=== PATIENT | male | born 1935 | race Caucasian/White ===

== ENCOUNTER → 2021-01-19 10:45 | Outpatient (BNVA) | payer MEDICARE, OTHER, SELFPAY | PROVIDERS: PCP Internal Medicine; Visit Provider Urology | DX: C61 Malignant neoplasm of prostate (principal) | CPT/HCPCS: 99212 ==

== ENCOUNTER → 2022-01-19 09:42 | Outpatient (BNVA) | payer MEDICARE, OTHER, SELFPAY | PROVIDERS: PCP Internal Medicine; Visit Provider Urology | DX: N20.0 Calculus of kidney (principal); C61 Malignant neoplasm of prostate; N40.1 Benign prostatic hyperplasia with lower urinary tract symptoms; N13.8 Other obstructive and reflux uropathy | CPT/HCPCS: 99212 ==

== ENCOUNTER 2023-01-08 10:06 | Outpatient (REF) | payer MEDICARE, OTHER, SELFPAY ==
--- NOTE | ~2023-01-08 | US_ITS ---
EXAMINATION: US RETROPERITONEAL LIMITED (RENAL ONLY) CLINICAL INFORMATION: Calculus of kidney. COMPARISON: None available. TECHNIQUE: Real-time imaging of the kidneys. FINDINGS: RIGHT KIDNEY: 12.8 x 6.5 x 4.6 cm (SAG x AP x TRV). The kidney is normal in size, contour, and echogenicity. Renal cortical thickness is normal. No calculi or focal parenchymal lesions. No hydronephrosis. LEFT KIDNEY: 12.0 x 5.0 x 4.7 cm (SAG x AP x TRV). The kidney is normal in size, contour, and echogenicity. Renal cortical thickness is normal. No renal calculi or hydronephrosis. 0.6 cm simple cyst in the mid kidney. 2.1 cm simple cyst in the upper pole. No follow-up imaging is recommended. US/US renal BI IMPRESSION: No visible nephrolithiasis. No hydronephrosis.
== END 2023-01-08 10:07 | disposition home or self-care (01) ==
LOC: HO.US 10:06
PROVIDERS: PCP Internal Medicine; Visit Provider Urology
DX: N20.0 Calculus of kidney (principal)
CPT/HCPCS: 76775

== ENCOUNTER 2023-01-24 11:24 | Outpatient (AMB) | payer MEDICARE, OTHER, SELFPAY ==
--- NOTE | 2023-01-24 11:34 | A.OFFVIS_ITS ---
Intake Intake Visit Reasons: 1Y PSA/US(set) Intake Note: Patient is present for Follow Up us/psa Urology Med: None Antibiotic Allergy: Penicillin Blood Thinner: None Pharmacy: [facility] Allergies penicillin Allergy (Unknown, Uncoded 01/24/23 11:35) Unknown HPI HPI Comments History of Present Illness Details Niels BEY is a very pleasant male. He is a patient of Dr. Barnhart. He is seen for the following urologic conditions. - prostate cancer Doing well PSA low Plan for ultrasound kidney stone in 12 months His older brother age 97 whose name was Murali Bey recently Prostate cancer:? Low-grade radical prostatectomy 1997 PSA remains low ? Prostate cancer was diagnosed?[address].? Diagnosis was reached by?needle biopsy, for elevated PSA.? The Rigo grade is?3+3 = 6, At biopsy.? TNM Classification of Malignant Tumours (TNM)?T1c.? The D'Tirso (NCCN) risk category is?Low Risk (PSA< 10, Gl < 7, T1c).? Initial therapy included?Primary treatment, Prostatectomy (RRP/Robotic) ?, Additional treatment, Observation.? Recent labs included?a PSA (prostate-specific antigen) ?01/22 0.27 ?01/25 0.2, 02/26 0.2, 02/27 0.2, 01/28 0.2, 01/29 0.2, 01/30 0.2 Nephrolithiasis Ureteroscopy right side 2014 2020 presentation to [facility] with distal right-sided stone Imaging - 01/30 renal ultrasound, bilateral simple cyst, no stones PFSH Medical History Eczema Glaucoma History of kidney stones HTN (hypertension) Hypothyroidism OA (osteoarthritis) Prostate cancer Surgical History History of surgery Review of Systems Const Denies chills and Denies fever(s) Card Reports no additional complaints and Denies syncope Resp Denies cough GI Denies abdominal pain and Denies heartburn Reports as per HPI and Denies change in libido Neuro Denies syncope Psych Denies change in libido Endo Denies change in libido Physical Exam Const General: cooperative, healthy appearing, comfortable and no acute distress Orientation/consciousness: patient oriented x3 HEENT Face and sinus: Yes normal facial exam Mouth: moist mucous membranes Neck Neck: Yes normal visual inspection, Yes full ROM and Yes trachea midline Chest Chest palpation & inspection: normal inspection of the chest Resp Effort & Inspection: normal respiratory effort, able to speak in complete sentences and no respiratory distress GI Inspection: Yes normal to inspection Back/Spine/Pelvis Cervical Spine: normal cervical lordosis Thoracic/Lumbar Spine: thoracic and lumbar spine normal to inspection Skin General skin exam: no rashes or lesions noted Neuro General: patient oriented x3, gait normal, tone normal and moves all extremities Extrem General: Yes normal to inspection and Yes capillary refill normal Assessment & Plan Assessment & Plan (1) Prostate cancer: Code(s): C61 - Malignant neoplasm of prostate (2) Recurrent kidney stones: Code(s): N20.0 - Calculus of kidney Plan Twelve month follow-up Orders: Orders Prostate Specific Antigen 364 Days C61 - Malignant neoplasm of prostate US renal BI 364 Days N20.0 - Calculus of kidney Patient Instructions: Imaging studies, laboratory and physical exam results were discussed and rev iewed in detail. No major barriers to patient understanding were identified. An opportunity to ask questions regarding the treatment plan was provided. All questions were answered. The patient expressed understanding and agreement with the above treatment plan. The patient is aware they should contact our office by phone for worsening of their current condition or the appearance of new urologic symptoms. Compliance is encouraged with any medications and followup testing that is ordered. It is a privilege to participate in the urologic care of your patient. If you have any questions or concerns regarding treatment for the above conditions, or other urologic issues, please do not hesitate to contact me. The office telephone contact is [phone]. This note is constructed using voice recognition software. While every effort has been made to ensure accuracy tumbling machine operator errors may have been included. Yours sincerely, Dr Abner Sandoval MD, [facility] - Urology Providers of Expert, Compassionate Care for the Genitourinary System Coding Level of Care Code Est Pt Level 4 (48454) Diagnoses Prostate cancer C61 Recurrent kidney stones N20.0
== END 2023-01-24 12:04 | disposition home or self-care (01) ==
PROVIDERS: PCP Internal Medicine; Visit Provider Urology
DX: C61 Malignant neoplasm of prostate (principal); N20.0 Calculus of kidney
CPT/HCPCS: 99214

== ENCOUNTER → 2023-01-24 11:24 | Outpatient (BNVA) | payer MEDICARE, OTHER, SELFPAY | PROVIDERS: Visit Provider Urology | DX: C61 Malignant neoplasm of prostate (principal); N20.0 Calculus of kidney | CPT/HCPCS: 99212 ==

== ENCOUNTER 2024-01-13 09:36 | Outpatient (REF) | payer MEDICARE, OTHER, SELFPAY ==
--- NOTE | ~2024-01-13 | US_ITS ---
EXAMINATION: US RETROPERITONEAL COMPLETE (RENAL) CLINICAL INFORMATION: Renal calculus. COMPARISON: None available. TECHNIQUE: Real-time imaging of the kidneys and bladder. FINDINGS: RIGHT KIDNEY: 11.4 x 5.3 x 6.7 cm (SAG x AP x TRV). The kidney is normal in size, contour, and echogenicity. Renal cortical thickness is normal. No calculi or focal parenchymal lesions. No hydronephrosis. LEFT KIDNEY: 11.7 x 4.9 x 5.0 cm (SAG x AP x TRV). The kidney is normal in size, contour, and echogenicity. Renal cortical thickness is normal. No calculi or focal parenchymal lesions. No hydronephrosis. At the upper pole, a 2.3 cm benign, simple cyst is seen. At the interpolar aspect, 8 mm and 4 mm benign, simple cysts are seen. These require no imaging follow-up. US/US renal BI IMPRESSION: Unremarkable examination. Electronically signed by: Anival Deleon MD 02/05/2024 01:48 PM EDT
== END 2024-01-13 09:37 | disposition home or self-care (01) ==
LOC: HO.US 09:36
PROVIDERS: Visit Provider Urology
DX: N20.0 Calculus of kidney (principal)
CPT/HCPCS: 76775

== ENCOUNTER 2024-02-21 11:08 | Outpatient (AMB) | payer MEDICARE, OTHER, SELFPAY ==
--- NOTE | 2024-02-21 11:20 | MHC.OFFVIS ---
Intake Visit Reasons: 1Y Follow Up- US(Needs PSA) Intake Note: Patient is present for 1Y Follow Up/US Urology Med: None Antibiotic Allergy: Penicillin Blood Thinner: None Cartoon Animator Required: No Allergies penicillin Allergy (Unknown, Uncoded 02/21/24 11:21) Unknown HPI Comments Details: Niels BEY is a very pleasant male. He is a patient of Dr. Barnhart. He is seen for the following urologic conditions. - prostate cancer Doing well PSA remains low Twelve month follow-up Encourage fluids Prostate cancer:? Low-grade radical prostatectomy 1997 PSA remains low ? Prostate cancer was diagnosed?[address] Klein.? Diagnosis was reached by?needle biopsy, for elevated PSA.? The Rigo grade is?3+3 = 6, At biopsy.? TNM Classification of Malignant Tumours (TNM)?T1c.? The D'Tirso (NCCN) risk category is?Low Risk (PSA< 10, Gl < 7, T1c).? Initial therapy included?Primary treatment, Prostatectomy (RRP/Robotic) ?, Additional treatment, Observation.? Recent labs included?a PSA (prostate-specific antigen) ?01/22 0.27 ?01/25 0.2, 02/26 0.2, 02/27 0.2, 01/28 0.2, 01/29 0.2, 01/30 0.2 Nephrolithiasis Ureteroscopy right side 2014 2020 presentation to [facility] with distal right-sided stone Imaging - 01/30 renal ultrasound, bilateral simple cyst, no stones - 01/31 renal ultrasound bilateral simple cysts no stone seen PFSH Medical History Eczema Glaucoma History of kidney stones HTN (hypertension) Hypothyroidism OA (osteoarthritis) Prostate cancer Surgical History History of surgery Review of Systems Const All systems reviewed & are unremarkable except as noted in HPI and below Reports no additional complaints Resp Reports no additional complaints GI Reports no additional complaints Reports as per HPI Musc Reports no additional complaints Physical Exam Telemedicine evaluation Appropriate responses Regular breathing rate and rhythm HEENT Head: Yes normal to inspection Ears: hearing grossly normal bilaterally Eyes General: appearance normal, both eyes and all related structures Neck Neck: Yes normal visual inspection Chest Chest palpation & inspection: normal inspection of the chest Resp Effort & Inspection: normal respiratory effort and able to speak in complete sentences Telehealth Telehealth Location of provider rendering services: practice address Location of patient: address on file Patient Identification confirmed using: Name, : Yes Telehealth method: voice only Patient verbally consented to treatment: Yes Patient verbally consented to billing insurance company: Yes Patient informed of any privacy concerns related to visit: Yes Assessment & Plan Assessment & Plan (1) Recurrent kidney stones: Code(s): N20.0 - Calculus of kidney Category: Medical (2) Prostate cancer: Code(s): C61 - Malignant neoplasm of prostate Category: Medical Plan Yearly PSA follow-up Orders: Orders Prostate Specific Antigen 364 Days C61 - Malignant neoplasm of prostate Patient Instructions: Imaging studies, laboratory and physical exam results were discussed and reviewed in detail. No major barriers to patient understanding were identified. An opportunity to ask questions regarding the treatment plan was provided. All questions were answered. The patient expressed understanding and agreement with the above treatment plan. The patient is aware they should contact our office by phone for worsening of their current condition or the appearance of new urologic symptoms. Compliance is encouraged with any medications and followup testing that is ordered. It is a privilege to participate in the urologic care of your patient. If you have any questions or concerns regarding treatment for the above conditions, or other urologic issues, please do not hesitate to contact me. The office telephone contact is [phone]. This note is constructed using voice recognition software. While every effort has been made to ensure accuracy manager resource errors may have been included. Yours sincerely, Dr Abner Sandoval MD, [facility] - Urology Providers of Expert, Compassionate Care for the Genitourinary System Coding Level of Care Code Est Pt Level 4 (80640) Diagnoses Recurrent kidney stones N20.0 Prostate cancer C61
== END 2024-02-21 12:10 | disposition home or self-care (01) ==
PROVIDERS: Visit Provider Urology
DX: N20.0 Calculus of kidney (principal); C61 Malignant neoplasm of prostate
CPT/HCPCS: 99214

== ENCOUNTER → 2024-02-21 11:08 | Outpatient (BNVA) | payer MEDICARE, OTHER, SELFPAY | PROVIDERS: Visit Provider Urology | DX: C61 Malignant neoplasm of prostate (principal); N28.1 Cyst of kidney, acquired; Z87.442 Personal history of urinary calculi | CPT/HCPCS: 99212 ==

== ENCOUNTER 2025-01-25 08:52 | Outpatient (AMB) | payer MEDICARE, OTHER, SELFPAY ==
--- OUTSIDE RECORDS SUMMARY | 2025-01-25 09:21 | XMS_ITS | Encounter Summary ---
Author Organization [facility] Address [facility] [employer] [facility] [address] [place] [phone] Phone Care Team Providers Care Security Controls Assessor Name Role Phone Justin Barnhart MD Primary Care Provider [phone] Nii Menchaca MD Primary Care Provider [phone] Nii Menchaca MD Unavailable Encounter Details Date Type Department Care Team (Latest Contact Info) Description 05/09/2021 Transcribe Orders [facility] [address] [place] [address] Justin Barnhart MD [address] [facility], [address] [place], [place] [id number] [email or web address] Hypothyroidism, unspecified type (Primary Dx); Essential hypertension, malignant Social History Tobacco Use Types Packs/Day Years Used Date Smoking Tobacco: Never Smokeless Tobacco: Never Alcohol Use Standard Drinks/Week Comments Yes 0 (1 standard drink = 0.6 oz pur e alcohol) occ Sex and Gender Information Value Date Recorded Sex Assigned at Male 01/13/2021 9:38 AM EDT Legal Sex Male 10:14 PM EDT Gender Identity Not on file Sexual Orientation Not on file documented as of this encounter Plan of Treatment Upcoming Encounters Date Type Department Care Team (Late st Contact Info) Description 02/23/2025 10:00 AM EDT Office Visit [facility] [address] [place], [place] [id number] Nii Menchaca MD [address] [facility], [address] [place] [address] [email or web address] 05/27/2025 10:45 AM EST Office Visit [facility] [address] [place] [address] Evy Hernandez MD, PhD [address] [place] [address] [email or web address] documented as of this encounter Results * TSH with reflex (05/09/2021 10:18 AM EST) TSH 3.96 0.27 - 4.20 uIU/mL [facility] Blood 05/09/2021 10:1 8 AM EST 05/09/2021 10:34 AM EST us Justin Barnhart MD LAB BLOOD ORDERABLES Final Re sult [facility] [address] [place] [address] * (ABNORMAL) Lipid panel (05/09/2021 10:18 AM EST) HDL 45 mg/dL [facility] Comment: Interpretation <40 mg/dL: Low HDL cholesterol (major risk factor for CHD) Greater than or equal to 60 mg/dL: High HDL cholesterol ( negative risk factor for CHD) HDL - cholesterol is affected by a number of factors, e.g. smoking, excerise, hormones, sex and age. CHOLESTEROL 141 0 - 240 mg/dL [facility] TRIGLYCERIDES 143 30 - 160 mg/dL [facility] LDL 67 50 - 129 mg/dL [facility] Comment: LDL levels in terms of risk for coronary heart disease: <100 mg/dL: Optimal 100-129 mg/dL: Near or above optimal 130-159 mg/dL: Borderline high 160-189 mg/dL: High >190 mg/dL: Very High CARDIAC RISK RATIO 3.1(L) 3.4 - 5.0 C [facility] Blood 05/09/2021 10:1 8 AM EST 05/09/2021 10:34 AM EST us Justin Barnhart MD LAB BLOOD ORDERABLES Final Re sult Performing Organization Address [facility] Co de Phone Number [address] [address] * (ABNORMAL) Renal panel (05/09/2021 10:18 AM EST) SODIUM 142 133 - 146 mmol/L [facility] POTASSIUM 4.1 3.3 - 5.1 mmol/L [facility] CHLORIDE 104 96 - 108 mmol/L [facility] CO2 26 21 - 35 mmol/L [facility] GLUCOSE 128(H) 70 - 99 mg/dL [facility] BUN 27(H) 6 - 19 mg/dL [facility] CREATININE 0.90 0.5 - 1.5 mg/dL [facility] CALCIUM 9.0 8.4 - 10.3 mg/dL [facility] PHOSPHORUS 3.1 2.7 - 4.5 mg/dL [facility] ALBUMIN 4.5 3.9 - 4.8 g/dL [facility] EGFR 78 >59 mL/min/1.7 3m2 [facility] Comment:Estimated glomerular filtration rate calculated using the CKD-EPI equation. ANION GAP 16 10 - 20 mmol/L [facility] Blood 05/09/2021 10:1 8 AM EST 05/09/2021 10:34 AM EST us Justin Barnhart MD LAB BLOOD ORDERABLES Final Re sult Performing Organization Address City/[facility]/ZIP Co de Phone Number [address] [address] documented in this encounter Visit Diagnoses Diagnosis Hypothyroidism, unspecified type- Primary Essential hypertension, malignant documented in this encounter Care Teams Security Controls Assessor Relationship Specialty Start Date End Date Justin Barnhart MD [address] [place] [address], [address] [place] [address] [email or web address] PCP - General Nephrology 02/06/18 02/19/24 Nii Menchaca MD [address] [facility] [address] [place] [address] [email or web address] PCP - General Family Medicine 02/20/24 Nii Menchaca MD [address] [facility] [address] [place] [address] [email or web address] Insurance Assigned Provider 09/13/24 documented as of this encounter Additional Source Comments The information contained in this document represents components of the legal health record. It is not the complete legal health record.[facility]
--- OUTSIDE RECORDS SUMMARY | 2025-01-25 09:21 | XMS_ITS | Clinical Summary ---
Author Organization [facility], Address [address] [place] [phone] Phone Care Team Providers Care Drafter Castings Name Role Phone Nii Menchaca Primary Care Provider [phone] Allergies Active Allergy Reactions Criticality Noted Date Comments Penicillins Other (see comments) 11/10/2019 Medications omeprazole (PriLOSEC) [address] capsule TAKE 1 CAPSULE BY MOUTH DAILY 0 Active dorzolamide-dario olol (COSOPT) 22.3-6.8 MG/ML ophthalmic solution INSTILL 1 DROP IN THE RIGHT EYE TWICE DAILY 0 Active cholecalciferol (VITAMIN D-3) 10 MCG (400 UNIT) tablet Take 1 tablet by mouth 1 (one) time each day Active Netarsudil-Niya noprost (Rocklatan) 0.02-0.005 % solution Administer into affected eye(s) Active amLODIPine (NORVASC) 10 MG tablet TAKE 1 TABLET IN THE MORNING 90 tablet 3 3 Active levothyroxine (SYNTHROID, LEVOTHROID) 137 MCG tablet TAKE 1 TABLET DAILY 90 tablet 3 3 Active methazolAMIDE (NEPTAZANE) 50 MG tablet 4 Active Active Problems Problem Noted Date Diagnosed Date Renal stone 01/13/2021 Overview (05/15/2021): Last Assessment & Plan: Patient with prior kidney stone years ago whom had an attempt of stent placement however he claims that this did not work and the urologist ended up going into retrieve the stone. He now presents with a 3-day history of right-sided abdominal pain with radiation to the back with noted fevers chills. UA revealed 2+ blood/1+ protein. RBCs 11-20/WBCs 21-49 and 1+ bacteria CT abd/pelvis revealed a 4 mm proximal right ureteral stone with mild upstream hydroureteronephrosis. Associated perinephric/periureteral stranding and urothelial enhancement is likely reactive although correlation with urinalysis is suggested to exclude a superimposed infectious process. Fatty liver cholelithiasis without evidence of cholecystitis. Similar appearing pericardial calcifications -N.p.o. after midnight for stent in the morning per urology -Continue 1 g IV Rocephin every 24 hours -Lactobacillus twice daily -await urine culture results -urology consult -strain urine -Flomax 0.4mg po nightly -dilaudid 0.5-1mg IV q3h prn mod-severe pain -tylenol prn fever -zofran prn n/v Ureteric stone 01/13/2021 Acquired hypothyroidism 11/10/2019 Overview (05/15/2021): Last Assessment & Plan: Continue levothyroxine History of calculus of kidney 11/10/2019 Essential hypertension 11/10/2019 Overview (05/15/2021): Last Assessment & Plan: Continue norvasc 10mg daily Hydralazine 25mg po q6h prn for SBP >180 Immunizations Immunization Administration Dates Next Due Influenza Split High Dose Pr eservative Free IM 02/27/2019,02/27/2019,02/20/2018,02/21 Influenza Vaccine, Quadrival ent, Adjuvanted 02/09/2020,02/09/2020 Influenza, Trivalent, Adjuvanted 02/20/2018,02/08 Pfizer SARS-COV-2 08/04/2020,,07/14/2020,07/14 Pneumococcal Polysaccharide 05/23/2007, 7 Family History Medical History Relation Comments Diabetes Brother Stroke Mother Diabetes Sibling brother Relation Status Comments Brother Father Mother Sibling Social History Tobacco Use Types Packs/Day Years Used Date Smoking Tobacco: Never Alcohol Use Standard Drinks/Week Comments Yes 0 (1 standard drink = 0.6 oz pure alcohol) Alcoholic Drinks/day: 1-2 drinks per day Sex and Gender Information Value Date Recorded Sex Assigned at Not on file Legal Sex Male 4:34 PM EST Gender Identity Not on file Sexual Orientation Not on file Occupation Industry Job Start Date Job End Date Retired Not on file Not on file Not on file Last Filed Vital Signs Vital Sign Reading Time Taken Comments Blood Pressure 138/72 05/15/2023 12:00 PM EST Pulse 68 05/15/2023 12:00 PM EST Temperature 36.7 C (98 F) 05/14/2019 12:00 PM EST Respiratory Rate 14 05/15/2023 12:00 PM EST Oxygen Saturation - - Inhaled Oxygen Concentration - - Weight 88.5 kg (195 lb) 05/15/2023 12:00 PM EST Height 175.3 cm (5' 9 ) 05/15/2023 12:00 PM EST Body Mass Index 28.8 05/15/2023 12:00 PM EST Plan of Treatment Health Maintenance Due Date Last Done Comments Pneumococcal Vaccine: 50+ Years (3 of 3 - PCV) 05/23/2008 05/23/2007, 05/23/2007 Influenza Vaccine (#1) 2025 0, 02/09/2020, 02/27/2019, Additional history exists Pneumococcal Vaccine: Peds (0 to 5 Years) and At-Risk Patients (6 to 49 Years) Discontinued 05/23/2007, 05/23/2007 Hepatitis B Vaccine Aged Out No longe r eligible based on patient's age to complete this topic Insurance Medicare [facility] Care Teams Drafter Castings Relationship Specialty Start Date End Date Nii Menchaca [address] [place] [address] PCP - General Family Medicine 06/04/24
== END 2025-01-25 09:31 | disposition home or self-care (01) ==
LOC: HO.HMGAL 08:52
PROVIDERS: Visit Provider Registered Nurse Emergency
DX: J30.89 Other allergic rhinitis (principal)
CPT/HCPCS: 95117; 95165

== ENCOUNTER 2025-02-19 11:15 | Outpatient (AMB) | payer MEDICARE, OTHER, SELFPAY ==
--- NOTE | 2025-02-19 11:17 | A.OFFVIS_ITS ---
Intake Visit Reasons: 1y/PSA Intake Note: Patient is present for 1Y Follow Up Urology Med: None Antibiotic Allergy: Penicillin Blood Thinner: None Labs done 02/03/25 : PSA 0.19 Procurement Internship Required: No Accompanied by: Self / Same As Patient Allergies penicillin Allergy (Unknown, Uncoded 02/21/24 11:21) Unknown HPI Comments Details: Niels BEY is a very pleasant male. He is a patient of Dr. Barnahrt. He is seen for the following urologic conditions. - prostate cancer Twelve month follow-up PSA remains low No stones on recent imaging We will check for 1 more year Prostate cancer:? Low-grade radical prostatectomy 1997 PSA remains low ? Prostate cancer was diagnosed?[address] Klein.? Diagnosis was reached by?needle biopsy, for elevated PSA.? The Rigo grade is?3+3 = 6, At biopsy.? TNM Classification of Malignant Tumours (TNM)?T1c.? The D'Tirso (NCCN) risk category is?Low Risk (PSA< 10, Gl < 7, T1c).? Initial therapy included?Primary treatment, Prostatectomy (RRP/Robotic) ?, Additional treatment, Observation.? Recent labs included?a PSA (prostate-specific antigen) ?01/22 0.27 ?01/25 0.2, 02/26 0.2, 02/27 0.2, 01/28 0.2, 01/29 0.2, 01/30 0.2 Nephrolithiasis Ureteroscopy right side 2014 2020 presentation to [facility] with distal right-sided stone Imaging - 01/30 renal ultrasound, bilateral simple cyst, no stones - 01/31 renal ultrasound bilateral simple cysts no stone seen [facility] Medical History Eczema Glaucoma History of kidney stones HTN (hypertension) Hypothyroidism OA (osteoarthritis) Prostate cancer Surgical History History of surgery Review of Systems Const Denies chills and Denies fever(s) Card Reports no additional complaints and Denies syncope Resp Denies cough GI Denies abdominal pain and Denies heartburn Reports as per HPI and Denies change in libido Neuro Denies syncope Psych Denies change in libido Endo Denies change in libido Physical Exam Const General: cooperative, healthy appearing, comfortable and no acute distress Orientation/consciousness: patient oriented x3 HEENT Face and sinus: Yes normal facial exam Mouth: moist mucous membranes Neck Neck: Yes normal visual inspection, Yes full ROM and Yes trachea midline Chest Chest palpation & inspection: normal inspection of the chest Resp Effort & Inspection: normal respiratory effort, able to speak in complete sentences and no respiratory distress GI Inspection: Yes normal to inspection Back/Spine/Pelvis Cervical Spine: normal cervical lordosis Thoracic/Lumbar Spine: thoracic and lumbar spine normal to inspection Skin General skin exam: no rashes or lesions noted Neuro General: patient oriented x3, gait normal, tone normal and moves all extremities Extrem General: Yes normal to inspection and Yes capillary refill normal Assessment & Plan Assessment & Plan (1) Prostate cancer: Code(s): C61 - Malignant neoplasm of prostate Category: Medical (2) Recurrent kidney stones: Code(s): N20.0 - Calculus of kidney Category: Medical Plan 12 month follow-up Orders: Orders US renal BI 12 Months N20.0 - Calculus of kidney Prostate Specific Antigen 12 Months C61 - Malignant neoplasm of prostate Patient Instructions: This note is constructed using voice recognition software. While every effort has been made to ensure accuracy engine turner errors may have been included. Imaging studies, laboratory and physical exam results were discussed and reviewed in detail. No major barriers to patient understanding were identified. An opportunity to ask questions regarding the treatment plan was provided. All questions were answered. The patient expressed understanding and agreement with the above treatment plan. The patient is aware they should contact our office by phone for worsening of their current condition or the appearance of new urologic symptoms. Compliance is encouraged with any medications and followup testing that is ordered. It is a privilege to participate in the urologic care of your patient. If you have any questions or concerns regarding treatment for the above conditions, or other urologic issues, please do not hesitate to contact me. The office telephone contact is [phone]. Sincerely, Dr Abner Sandoval MD, ELDER [facility] - Urology Compassionate Specialist Care for the Genitourinary System Coding Level of Care Code Est Pt Level 4 (70996) Diagnoses Prostate cancer C61 Recurrent kidney stones N20.0
--- OUTSIDE RECORDS SUMMARY | 2025-02-19 13:22 | XMS_ITS | Encounter Summary ---
Author Organization [facility] Address [facility] [email or web address] [facility] [address] [place] [address] Phone Care Team Providers Care Transcribing Machine Operator Name Role Phone Justin Barnhart MD Primary Care Provider [phone] Nii Menchaca MD Primary Care Provider [phone] Nii Menchaca MD Unavailable Encounter Details Date Type Department Care Team (Latest Contact Info) Description 05/09/2021 Transcribe Orders [facility] [address] [place] [address] Justin Barnhart MD [address] [facility], [address] [place], [place] [id number] [email or web address] Hypothyroidism, unspecified type (Primary Dx); Essential hypertension, [...] Description 02/23/2025 10:00 AM EDT Office Visit [facility] [address] [place], [place] [id number] Nii Menchaca MD 234 [facility], [address] [place] [address] [email or web address] 05/27/2025 10:45 AM EST Office Visit [facility] [place] [address] [place] [address] Evy Hernandez MD, PhD [address] [place] [address] [email or web address] documented as of this encounter Results * TSH with reflex (05/09/2021 10:18 AM EST) TSH 3.96 0.27 - 4.20 uIU/mL [facility] Blood 05/09/2021 10:1 8 AM EST 05/09/2021 10:34 AM EST us Justin Barnhart MD LAB BLOOD ORDERABLES Final Re sult [facility] [address] [place] [address] * (ABNORMAL) Lipid panel (05/09/2021 10:18 AM EST) HDL 45 mg/dL [facility] Comment: Interpretation <40 mg/dL: Low HDL cholesterol (major risk factor for CHD) Greater than or equal to 60 mg/dL: High HDL cholesterol ( negative risk factor for CHD) HDL - cholesterol is affected by a number of factors, e.g. smoking, excerise, hormones, sex and age. CHOLESTEROL 141 0 - 240 mg/dL [facility] TRIGLYCERIDES 143 30 - 160 mg/dL [facility] LDL 67 50 - 129 mg/dL [facility] Comment: LDL levels in terms of risk for coronary heart disease: <100 mg/dL: Optimal 100-129 mg/dL: Near or above optimal 130-159 mg/dL: Borderline high 160-189 mg/dL: High >190 mg/dL: Very High CARDIAC RISK RATIO 3.1(L) 3.4 - 5.0 C [facility] Blood 05/09/2021 10:1 8 AM EST 05/09/2021 10:34 AM EST us Justin Barnhart MD LAB BLOOD ORDERABLES Final Re sult Performing Organization Address [facility] Co de Phone Number [address] [address] * (ABNORMAL) Renal panel (05/09/2021 10:18 AM EST) SODIUM 142 133 - 146 mmol/L [facility] POTASSIUM 4.1 3.3 - 5.1 mmol/L [facility] CHLORIDE 104 96 - 108 mmol/L [facility] CO2 26 21 - 35 mmol/L [facility] GLUCOSE 128(H) 70 - 99 mg/dL [facility] BUN 27(H) 6 - 19 mg/dL [facility] CREATININE 0.90 0.5 - 1.5 mg/dL [facility] CALCIUM 9.0 8.4 - 10.3 mg/dL [facility] PHOSPHORUS 3.1 2.7 - 4.5 mg/dL [facility] ALBUMIN 4.5 3.9 - 4.8 g/dL [facility] EGFR 78 >59 mL/min/1.7 3m2 [facility] Comment:Estimated glomerular filtration rate calculated using the CKD-EPI equation. ANION GAP 16 10 - 20 mmol/L [facility] Blood 05/09/2021 10:1 8 AM EST 05/09/2021 10:34 AM EST us Justin Barnhart MD LAB BLOOD ORDERABLES Final Re sult Performing Organization Address City/[facility]/ZIP Co de Phone Number [address] [address] documented in this encounter Visit Diagnoses Diagnosis Hypothyroidism, unspecified type- Primary Essential hypertension, malignant documented in this encounter Care Teams Transcribing Machine Operator Relationship Specialty Start Date End Date Justin Barnhart MD [address] [place] [address], [address] [place] [address] [email or web address] PCP - General Nephrology 02/06/18 02/19/24 Nii Menchaca MD 234 [facility] 7 [place] [address] [email or web address] PCP - General Family Medicine 02/20/24 Nii Menchaca MD 234 [facility] 7 [place] [address] [email or web address] Insurance Assigned Provider 09/13/24 documented as of this encounter Additional Source Comments The information contained in this document represents components of the legal health record. It is not the complete legal health record.[facility]
--- OUTSIDE RECORDS SUMMARY | 2025-02-19 13:22 | XMS_ITS | Encounter Summary ---
Author Organization [facility] Address [facility] Education Everytime [facility] [address] [place] [address] Phone Care Team Providers Care Bell Spinner Name Role Phone Justin Barnhart MD Primary Care Provider [phone] Nii Menchaca MD Primary Care Provider [phone] Nii Menchaca MD Unavailable Encounter Details Date Type Department Care Team (Late st Contact Info) Description 01/14/2021 Procedure Pass OR Admitting Dept - Virtual Department [address] [place] [address] Social History Tobacco Use Types Packs/Day Years [...] Description 02/23/2025 10:00 AM EDT Office Visit [facility] [address] [place], [place] [phone] Nii Menchaca MD 234 [facility], [address] [place], [place] [id number] 05/27/2025 10:45 AM EST Office Visit [facility] [address] [address] Evy Hernandez MD, PhD [address] [place] [address] [email or web address] documented as of this encounter Visit Diagnoses Not on filedocumented in this encounter Care Teams Bell Spinner Relationship Specialty Start Date End Date Justin Barnhart MD [address] [place] [address], [address] [place] [address] PCP - General Nephrology 02/06/18 02/19/24 Nii Menchaca MD [address] [place] [address], [facility] 7 [place] [address] PCP - General Family Medicine 02/20/24 Nii Menchaca MD [address] [place] [address] 7 [place] [address] Insurance Assigned Provider 09/13/24 documented as of this encounter Additional Source Comments The information contained in this document represents components of the legal health record. It is not the complete legal health record.[facility]
--- OUTSIDE RECORDS SUMMARY | 2025-02-19 13:22 | XMS_ITS | Encounter Summary ---
Author Organization [facility] Address [address] [employer] [facility] [address] [place] [address] Phone Care Team Providers Care Corporate Tutor Name Role Phone Justin Barnhart MD Primary Care Provider [phone] Nii Menchaca MD Primary Care Provider [phone] Nii Menchaca MD Unavailable Encounter Details Date Type Department Care Team (Late st Contact Info) Description 01/13/2021 Procedure Pass [facility], Ct Scan - [facility] [address] [place] [address] Social History Tobacco Use Types Packs/Day Years [...] on file documented as of this encounter Functional Status * Calculated C-SSRS Risk Score (Lifetime/Recent) Answer Date of Assessment Author No Risk Indicated 01/13/2021 9:37 AM JOEYT Lucie Vo RN * Cameron Suicide Severity Rating Scale (Screener/Recent Self-Report) Question Answer Date of Assessment Author 1. Wish to be (Past 1 Month) No 021 9:37 AM EDLucie Gutierrez RN 2. Non-Specific Active Suici sherlyn Thoughts (Past 1 Month) No 01/13/2021 9:37 AM EDT Gilbert, Lucie L, RN 6. Suicidal Behavior (Lifetime) No 1 9:37 AM EDT Lucie Vo RN documented as of this encounter Plan of Treatment Upcoming Encounters Date Type Department Care Team (Late st Contact Info) Description 02/23/2025 10:00 AM EDT Office Visit [facility] [address] [place] [address] Nii Menchaca MD 234 [facility] 7 [place] [address] 05/27/2025 10:45 AM EST Office Visit [facility] [place] [address] [place] [address] Evy Hernandez MD, PhD [address] [place] [address] [email or web address] documented as of this encounter Visit Diagnoses Not on filedocumented in this encounter Care Teams Corporate Tutor Relationship Specialty Start Date End Date Justin Barnhart MD 51 [facility], [address] [place] [address] PCP - General Nephrology 02/06/18 02/19/24 Nii Menchaca MD [address] [place] [address] 7 [place] [address] PCP - General Family Medicine 02/20/24 Nii Menchaca MD [address] [place] [address] 7 [place] [address] Insurance Assigned Provider 09/13/24 documented as of this encounter Additional Source Comments The information contained in this document represents components of the legal health record. It is not the complete legal health record.[facility]
--- OUTSIDE RECORDS SUMMARY | 2025-02-19 13:22 | XMS_ITS | Encounter Summary ---
Author Organization [facility] Address [facility] [employer] [facility] [address] [place] [address] Phone Care Team Providers Care Rand Tacker Name Role Phone Justin Barnhart MD Primary Care Provider [phone] Nii Menchaca MD Primary Care Provider [phone] Nii Menchaca MD Unavailable Encounter Details Date Type Department Care Team (Late st Contact Info) Description 02/28/2021 Ancillary Orders [facility], X-Ray - [address] [address] Javan Reich MD [address] [place] [address], [address] [place] [address] [email or web address] Calculus of ureter Social History Tobacco Use Types Packs/Day Years [...] Encounters Date Type Department Care Team (Late Contact Info) Description 02/23/2025 10:00 AM EDT Office Visit [facility] [address] [place], [place] [phone] Nii Menchaca MD 234 [facility], [address] [place] [address] [email or web address] 05/27/2025 10:45 AM EST Office Visit [facility] [place] [address] [place] [address] Evy Hernandez MD, PhD [address] [place] [address] [email or web address] documented as of this encounter Results * XR ABDOMEN 1 VIEW (02/28/2021 9:42 AM EDT) Anatomical Region Laterality Modality Abdomen Computed Radiogr aphy 02/28/2021 9:46 AM EDT Impressions 02/28/2021 9:49 AM EDT No radiopaque calculi detected. Narrative 02/28/2021 9:49 AM EDT Supine views of the abdomen obtained and compared to prior of February 06, [address] abdomen with contrast January 13, 2021 no renal stones are detected. Bowel gas pattern is unremarkable. Clips from prior prostatectomy and johan dissection again noted. Chronic mesenteric calcification near the L3 level is again noted. Scoliosis and extensive degenerative change noted in the spine. No gross lytic or blastic change is detected. Procedure Note Xavier Mcclure MD - 02/28/2021 Supine views of the abdomen obtained and compared to prior of January and CT abdomen with contrast January 13, 2021 no renal stones aredetected. Bowel gas pattern is unremarkable. Clips from priorprostatectomy and johan dissection again noted. Chronic mesentericcalcification near the L3 level is again noted. Scoliosis and extensivedegenerative change noted in the spine. No gross lytic or blastic changeis detected. IMPRESSION: No radiopaque calculi detected. us Javan Reich MD IMG XR ABDOMEN Final Result documented in this encounter Visit Diagnoses Diagnosis Calculus of ureter Calculus of ureter documented in this encounter Care Teams Rand Tacker Relationship Specialty Start Date End Date Justin Barnhart MD [address] [place] [address], [address] [place] [address] [email or web address] PCP - General Nephrology 02/06/18 02/19/24 Nii Menchaca MD [address] [place] [address] 7 [place] [address] [email or web address] PCP - General Family Medicine 02/20/24 Nii Menchaca MD [address] [place] [address] 7 [place] [address] [email or web address] Insurance Assigned Provider 09/13/24 documented as of this encounter Additional Source Comments The information contained in this document represents components of the legal health record. It is not the complete legal health record.[facility]
--- OUTSIDE RECORDS SUMMARY | 2025-02-19 13:22 | XMS_ITS | Encounter Summary ---
Author Organization [facility] Address [address] [facility] [address] [place] [address] Phone Care Team Providers Care Tire Center Manager Name Role Phone Justin Barnhart MD Primary Care Provider [phone] Nii Menchaca MD Primary Care Provider [phone] Nii Menchaca MD Unavailable Encounter Details Date Type Department Care Team (Late st Contact Info) Description 02/22/2021 Procedure Pass OR Admitting Dept - Virtual Department [address] [place] [address] Social History Tobacco Use Types Packs/Day Years Used Date Smoking Tobacco: Never Assessed Sex and Gender Information Value Date Recorded Sex Assigned at Male 01/13/2021 9:38 AM EDT Legal Sex Male 10:14 PM EDT Gender Identity Not on file Sexual Orientation Not on file documented as of this encounter Plan of Treatment Upcoming Encounters Date Type Department Care Team (Late st Contact Info) Description 02/23/2025 10:00 AM EDT Office Visit [facility] [place] [facility] [address] [place] [address] Nii Menchaca MD 234 [facility], [address] [place] [address] 05/27/2025 10:45 AM EST Office Visit [facility] [place] [address] [place] [address] Evy Hernandez MD, PhD [address] [place] [address] [email or web address] documented as of this encounter Visit Diagnoses Not on filedocumented in this encounter Care Teams Tire Center Manager Relationship Specialty Start Date End Date Justin Barnhart MD [address] [place] [address], [address] [place] [address] PCP - General Nephrology 02/06/18 02/19/24 Nii Menchaca MD [address] [place] [address], [facility] [address] [place] [address] PCP - General Family Medicine 02/20/24 Nii Menchaca MD [address] [place] [address], [address] [place] [address] [email or web address] Insurance Assigned Provider 09/13/24 documented as of this encounter Additional Source Comments The information contained in this document represents components of the legal health record. It is not the complete legal health record.[facility]
--- OUTSIDE RECORDS SUMMARY | 2025-02-19 13:23 | XMS_ITS | Encounter Summary ---
Author Organization [facility] Address [facility] [employer] [facility] ([place], [place]) [address] [place] [address] Phone Care Team Providers Care Call Center Coordinator Name Role Phone Justin Barnhart MD Primary Care Provider [phone] Nii Menchaca MD Primary Care Provider [phone] Nii Menchaca MD Unavailable Encounter Details Date Type Department Care Team (Latest Contact Info) Description 08/29/2021 Transcribe Orders Virtual Department [address] [place] [address] Javan Reich MD [address] [place] [address], [address] [place] [address] [email or web address] Calculus of kidney (Primary Dx); Cyst of kidney, acquired Social History Tobacco Use Types Packs/Day Years [...] Description 02/23/2025 10:00 AM EDT Office Visit [facility] [address] [place], [place] [id number] Nii Menchaca MD [address] [facility], [address] [place] [address] 05/27/2025 10:45 AM EST Office Visit [facility] [address] [place] [address] Evy Hernandez MD, PhD [address] [place] [address] [email or web address] documented as of this encounter Results * XR ABDOMEN 1 VIEW (09/08/2021 10:44 AM EDT) Anatomical Region Laterality Modality Abdomen Computed Radiogr aphy 09/08/2021 10:5 7 AM EDT Impressions 09/08/2021 11:04 AM EDT No radiopaque renal calculi. Narrative 09/08/2021 11:04 AM EDT XR ABDOMEN 1 VIEW COMPARISON: Abdominal radiograph February 28, 2021 FINDINGS: Tubes/Lines: None Bowel: No bowel dilatation. Bones/Soft Tissues: No radiopaque calculi in the bilateral kidneys. Surgical clips from prior prostatectomy and johan dissection are again noted. Chronic mesenteric calcification near the L3 level is again noted. Scoliosis and extensive degenerative changes are again noted in the spine. No destructive osseous lesions are noted. Procedure Note James Mendoza MD - 09/08/2021 XR ABDOMEN 1 VIEW COMPARISON: Abdominal radiograph February 28, 2021 FINDINGS: Tubes/Lines: None Bowel: No bowel dilatation. Bones/Soft Tissues: No radiopaque calculi in the bilateral kidneys.Surgical clips from prior prostatectomy and johan dissection are againnoted. Chronic mesenteric calcification near the L3 level is again noted.Scoliosis and extensive degenerative changes are again noted in the spine.No destructive osseous lesions are noted. IMPRESSION: No radiopaque renal calculi. Javan Reich MD IMG XR ABDOMEN Final Result * US Kidneys and Bladder (09/08/2021 10:32 AM EDT) Anatomical Region Laterality Modality Abdomen, Kidney Ultrasound 09/08/2021 12:2 0 PM EDT Impressions 09/08/2021 12:25 PM EDT Chronic left upper pole cyst without hydronephrosis, nephrolithiasis, or other renal pathology apparent. Chronic bladder diverticulum. POS - [id number] Narrative 09/08/2021 12:25 PM EDT COMPARISON: 01/13/2021 CT FINDINGS: The kidneys are within normal limits overall size with the right measuring 12.5 x 6.0 cm and left 12.6 x 4.9 cm in a longitudinal plane. The chronic left upper pole simple cyst measures 18 mm in greatest dimension. No right-sided cyst apparent. No solid renal mass, shadowing intrarenal calculi, or hydronephrosis. Prevoid bladder measured 169.3 cc and post-void bladder 70.1 cc consistent with an approximate 10% residual volume. A chronic right posterior lateral bladder diverticulum measures 2.5 x 2.7 x 2.1 cm. No intravesicular mass identified. Bilateral ureteral jets documented. Procedure Note Dieter Cabrera MD - 09/08/2021 COMPARISON: 01/13/2021 CT FINDINGS: The kidneys are within normal limits overall size with the right xzbcukikp00.5 x 6.0 cm and left 12.6 x 4.9 cm in a longitudinal plane. The chronicleft upper pole simple cyst measures 18 mm in greatest dimension. Noright-sided cyst apparent. No solid renal mass, shadowing intrarenalcalculi, or hydronephrosis. Prevoid bladder measured 169.3 cc and post-void bladder 70.1 cc consistentwith an approximate 10% residual volume. A chronic right posterior lateralbladder diverticulum measures 2.5 x 2.7 x 2.1 cm. No intravesicular massidentified. Bilateral ureteral jets documented. IMPRESSION: Chronic left upper pole cyst without hydronephrosis, nephrolithiasis, orother renal pathology apparent. Chronic bladder diverticulum. POS - [id number] us Javan Reich MD [facility] Final Result documented in this encounter Visit Diagnoses Diagnosis Calculus of kidney- Primary Cyst of kidney, acquired Acquired cyst of kidney Calculus of kidney Cyst of kidney, acquired Acquired cyst of kidney Calculus of kidney Cyst of kidney, acquired Acquired cyst of kidney documented in this encounter Care Teams Call Center Coordinator Relationship Specialty Start Date End Date Justin Barnhart MD [address] [place] [address], [address] [place] [address] [email or web address] PCP - General Nephrology 02/06/18 02/19/24 Nii Menchaca MD [address] [place] [address], [address] [place] [address] PCP - General Family Medicine 02/20/24 Nii Menchaca MD [address] [place] [address], [address] [place] [address] [email or web address] Insurance Assigned Provider 09/13/24 documented as of this encounter Additional Source Comments The information contained in this document represents components of the legal health record. It is not the complete legal health record.[facility]
--- OUTSIDE RECORDS SUMMARY | 2025-02-19 13:23 | XMS_ITS | Encounter Summary ---
Author Organization [facility] Address [facility] [facility] [address] [place] [address] Phone Care Team Providers Care Cutting Inspector Name Role Phone Justin Barnhart MD Primary Care Provider [phone] Nii Menchaca MD Primary Care Provider [phone] Nii Menchaca MD Unavailable Encounter Details Date Type Department Care Team (Latest Contact Info) Description 11/03/2019 Transcribe Orders [facility] [address] [place] [address] Justin Barnhart MD [address] [facility], [address] [place] [address] [email or web address] Hypothyroidism, unspecified type (Primary Dx); Essential hypertension, malignant; Personal history of urinary calculi Social History Tobacco Use Types Packs/Day Years [...] Description 02/23/2025 10:00 AM EDT Office Visit [facility] [address] [place], [place] [phone] Nii Menchaca MD [address] [place] [address], [address] [place] [address] 05/27/2025 10:45 AM EST Office Visit [facility] [address] [place] [address] Evy Hernandez MD, PhD [address] [place] [address] [email or web address] documented as of this encounter Results * Free T4 (05/19/2020 10:04 AM EST) Pathologist [facility] FREE T4 1.6 0.9 - 1.7 ng/dL [facility] Blood 05/19/2020 10:0 4 AM EST 05/19/2020 10:08 AM EST Justin Barnhart MD LAB BLOOD ORDERABLES Final Re sult Performing Organization Address City/[facility]/ZIP Co de Phone Number [address] [address] * TSH (05/19/2020 10:04 AM EST) Pathologist [facility] TSH 1.78 0.27 - 4.20 uIU/mL [facility] Blood 05/19/2020 10:0 4 AM EST 05/19/2020 10:08 AM EST Justin Barnhart MD LAB BLOOD ORDERABLES Final Re sult Performing Organization Address City/[facility]/ZIP Co de Phone Number [address] [address] * (ABNORMAL) CBC and differential (05/19/2020 10:04 AM EST) Pathologist [facility] WBC 8.95 4.00 - 11.00 K/uL [facility] Comment:Note Reference Range updates to all CBC and Differential results. RBC 5.18 3.90 - 5.69 M/uL [facility] HGB 17.2 12.4 - 17.3 g/dL [facility] Comment:Note updated Referen ce Ranges for all CBC and Differential results. HCT 51.1(H) 37.0 - 51.0 % [facility] PLT 307 140 - 430 K/uL [facility] MCV 98.6(H) 78.0 - 97.0 fL [facility] MCH 33.2(H) 25.0 - 33.0 pg [facility] MCHC 33.7 32.0 - 36.0 g/dL [facility] RDW 13.0 11.0 - 15.0 % [facility] MPV 10.0 8.4 - 12.8 fl [facility] NRBC 0.00 0 /100 WBCs [facility] ABSOLUTE NRBC 0.00 0 K/uL [facility] DIFF METHOD Auto [facility] NEUTS 68.9 43.0 - 75.0 % [facility] LYMPHS 18.5 18.2 - 47.4 % [facility] MONOS 8.3 4.00 - 11.00 % [facility] EOS 3.0 0.0 - 8.0 % [facility] BASOS 1.1 0.0 - 2.0 % [facility] Granulocytes, immature (%) 0.2 0.0 - 0.9 % [facility] ABSOLUTE NEUTS 6.16 1.80 - 7.70 K/uL [facility] ABSOLUTE LYMPHS 1.66 1.00 - 3.10 K/uL [facility] ABSOLUTE MONOS 0.74 0.20 - 0.80 K/uL [facility] ABSOLUTE EOS 0.27 0.00 - 0.80 K/uL [facility] ABSOLUTE BASOS 0.10(H) 0.00 - 0.09 K/uL [facility] Granulocytes, immature 0.02 0.00 - 0.05 K/uL [facility] Blood 05/19/2020 10:0 4 AM EST 05/19/2020 10:08 AM EST us Justin Barnhart MD LAB BLOOD ORDERABLES Final Re sult [facility] [address] [place] [address] * Albumin (05/19/2020 10:04 AM EST) ALBUMIN 4.7 3.9 - 4.8 g/dL [facility] Blood 05/19/2020 10:0 4 AM EST 05/19/2020 10:08 AM EST Justin Barnhart MD LAB BLOOD ORDERABLES Final Re sult Performing Organization Address City/[facility]/ZIP Co de Phone Number [address] [address] * Magnesium (05/19/2020 10:04 AM EST) MAGNESIUM 2.0 1.6 - 2.6 mg/dL [facility] Blood 05/19/2020 10:0 4 AM EST 05/19/2020 10:08 AM EST Justin Barnhart MD LAB BLOOD ORDERABLES Final Re sult Performing Organization Address [facility]/ZIP Co de Phone Number [address] [address] * Phosphorus (05/19/2020 10:04 AM EST) PHOSPHORUS 3.0 2.7 - 4.5 mg/dL [facility] Blood 05/19/2020 10:0 4 AM EST 05/19/2020 10:08 AM EST Justin Barnhart MD LAB BLOOD ORDERABLES Final Re sult Performing Organization Address [facility] Co de Phone Number [address] [address] * (ABNORMAL) Basic metabolic panel (05/19/2020 10:04 AM EST) SODIUM 141 133 - 146 mmol/L [facility] CHLORIDE 103 96 - 108 mmol/L [facility] POTASSIUM 4.1 3.3 - 5.1 mmol/L [facility] CO2 25 21 - 35 mmol/L [facility] BUN 17 6 - 19 mg/dL [facility] CREATININE 0.90 0.5 - 1.5 mg/dL [facility] GLUCOSE 132(H) 70 - 99 mg/dL [facility] CALCIUM 9.5 8.4 - 10.3 mg/dL [facility] EGFR 78 >59 mL/min/1.7 3m2 [facility] Comment:Estimated glomerular filtration rate calculated using the CKD-EPI equation. ANION GAP 17 10 - 20 mmol/L [facility] Blood 05/19/2020 10:0 4 AM EST 05/19/2020 10:08 AM EST Justin Barnhart MD LAB BLOOD ORDERABLES Final Re sult Performing Organization Address [facility] Co de Phone Number [address] [address] * Free T4 (11/03/2019 10:04 AM EDT) FREE T4 1.5 0.9 - 1.7 ng/dL [facility] Blood 11/03/2019 10:0 4 AM EDT 11/03/2019 10:29 AM EDT Justin Barnhart MD LAB BLOOD ORDERABLES Final Re sult Performing Organization Address [facility] de Phone Number [address] [address] * (ABNORMAL) TSH (11/03/2019 10:04 AM EDT) TSH 4.26(H) 0.27 - 4.20 uIU/mL [facility] Blood 11/03/2019 10:0 4 AM EDT 11/03/2019 10:29 AM EDT Justin Barnhart MD LAB BLOOD ORDERABLES Final Re sult Performing Organization Address [facility] Co de Phone Number [address] [address] * (ABNORMAL) CBC and differential (11/03/2019 10:04 AM EDT) WBC 7.45 4.00 - 11.00 K/uL [facility] Comment:Note Reference Range updates to all CBC and Differential results. RBC 5.06 3.90 - 5.69 M/uL [facility] HGB 16.9 12.4 - 17.3 g/dL [facility] Comment:Note updated Referen ce Ranges for all CBC and Differential results. HCT 48.7 37.0 - 51.0 % [facility] PLT 297 140 - 430 K/uL [facility] MCV 96.2 78.0 - 97.0 fL [facility] MCH 33.4(H) 25.0 - 33.0 pg [facility] MCHC 34.7 32.0 - 36.0 g/dL [facility] RDW 13.3 11.0 - 15.0 % [facility] MPV 9.7 8.4 - 12.8 fl [facility] NRBC 0.00 0 /100 WBCs [facility] ABSOLUTE NRBC 0.00 0 K/uL [facility] DIFF METHOD Auto [facility] NEUTS 64.5 43.0 - 75.0 % [facility] LYMPHS 21.9 18.2 - 47.4 % [facility] MONOS 9.4 4.00 - 11.00 % [facility] EOS 2.6 0.0 - 8.0 % [facility] BASOS 1.3 0.0 - 2.0 % [facility] Granulocytes, immature (%) 0.3 0.0 - 0.9 % [facility] ABSOLUTE NEUTS 4.81 1.80 - 7.70 K/uL [facility] ABSOLUTE LYMPHS 1.63 1.00 - 3.10 K/uL [facility] ABSOLUTE MONOS 0.70 0.20 - 0.80 K/uL [facility] ABSOLUTE EOS 0.19 0.00 - 0.80 K/uL [facility] ABSOLUTE BASOS 0.10(H) 0.00 - 0.09 K/uL [facility] Granulocytes, immature 0.02 0.00 - 0.05 K/uL [facility] Blood 11/03/2019 10:0 4 AM EDT 11/03/2019 10:29 AM EDT Justin Barnhart MD LAB BLOOD ORDERABLES Final Re sult Performing Organization Address [facility]/ZIP Co de Phone Number [address] [address] * Albumin (11/03/2019 10:04 AM EDT) ALBUMIN 4.6 3.9 - 4.8 g/dL [facility] Blood 11/03/2019 10:0 4 AM EDT 11/03/2019 10:29 AM EDT Justin Barnhart MD LAB BLOOD ORDERABLES Final Re sult Performing Organization Address [facility] Co de Phone Number [address] [address] * Magnesium (11/03/2019 10:04 AM EDT) MAGNESIUM 2.0 1.6 - 2.6 mg/dL [facility] Blood 11/03/2019 10:0 4 AM EDT 11/03/2019 10:29 AM EDT Justin Barnhart MD LAB BLOOD ORDERABLES Final Re sult Performing Organization Address [facility] Co de Phone Number [address] [address] * (ABNORMAL) Basic metabolic panel (11/03/2019 10:04 AM EDT) SODIUM 140 133 - 146 mmol/L [facility] CHLORIDE 102 96 - 108 mmol/L [facility] POTASSIUM 4.0 3.3 - 5.1 mmol/L [facility] CO2 25 21 - 35 mmol/L [facility] BUN 17 6 - 19 mg/dL [facility] CREATININE 0.80 0.5 - 1.5 mg/dL [facility] GLUCOSE 159(H) 70 - 99 mg/dL [facility] CALCIUM 9.2 8.4 - 10.3 mg/dL [facility] EGFR 83 >59 mL/min/1.7 3m2 [facility] Comment:If patient is black, multiply result by 1.159. Estimated glomerular filtration rate calculated using the CKD-EPI equation. ANION GAP 17 10 - 20 mmol/L [facility] Blood 11/03/2019 10:0 4 AM EDT 11/03/2019 10:29 AM EDT us Justin Barnhart MD LAB BLOOD ORDERABLES Final Re sult [facility] [address] [place] [address] documented in this encounter Visit Diagnoses Diagnosis Hypothyroidism, unspecified type- Primary Essential hypertension, malignant Personal history of urinary calculi documented in this encounter Care Teams Cutting Inspector Relationship Specialty Start Date End Date Justin Barnhart MD [address] [facility], [address] [place] [address] [email or web address] PCP - General Nephrology 02/06/18 02/19/24 Nii Menchaca MD [address] [place] [address] [address] [place] [address] PCP - General Family Medicine 02/20/24 Nii Menchaca MD [address] [place] [address] 7 [place] [address] Insurance Assigned Provider 09/13/24 documented as of this encounter Additional Source Comments The information contained in this document represents components of the legal health record. It is not the complete legal health record.[facility]
--- OUTSIDE RECORDS SUMMARY | 2025-02-19 13:23 | XMS_ITS | Clinical Summary ---
Author Organization [facility], Address [address] [place] [phone] Phone Care Team Providers Care Ballpoint Pen Assembly Machine Operator Name Role Phone Nii Menchaca Primary Care Provider [phone] Allergies Active Allergy Reactions Criticality Noted Date [...] age to complete this topic Insurance Medicare [facility] Care Teams Ballpoint Pen Assembly Machine Operator Relationship Specialty Start Date End Date Nii Menchaca [address] [place] [address] PCP - General Family Medicine 06/04/24
--- OUTSIDE RECORDS SUMMARY | 2025-02-19 13:23 | XMS_ITS | Encounter Summary ---
Author Organization [facility] Address [facility] [facility] [address] [place] [address] Phone Care Team Providers Care Cradle Slide Maker Name Role Phone Justin Barnhart MD Primary Care Provider [phone] Nii Menchaca MD Primary Care Provider [phone] Nii Menchaca MD Unavailable Encounter Details Date Type Department Care Team (Latest Contact Info) Description 05/08/2018 Transcribe Orders [facility] [address] [place] [address] Justin Barnhart MD [address] [facility], [address] [place] [address] [email or web address] Essential hypertension, malignant (Primary Dx); Myxedema heart disease; Personal history of urinary calculi Social History [...] Description 02/23/2025 10:00 AM EDT Office Visit [facility] [address] [place], [place] [id number] Nii Menchaca MD [address] [facility], [address] [place], [place] [phone] 05/27/2025 10:45 AM EST Office Visit [facility] [place] [address] [place] [address] Evy Hernandez MD, PhD [address] [place] [address] [email or web address] documented as of this encounter Results * Urine protein/creatinine with ratio (11/06/2018 9:30 AM EDT) URINE TOTAL PROTEIN 12.9 mg/dL [facility] URINE CREATININE 115 mg/dL [facility] URINE TP CRE RATIO 0.11 0 - 0.19 [facility] Urine (Urine) 11/06/2018 9:3 0 AM EDT 11/06/2018 9:36 AM EDT us Justin Barnhart MD URINE ORDERABLES Final Result Performing Organization Address City/[facility]/ZIP Co de Phone Number [address] [address] * Free T4 (11/06/2018 9:30 AM EDT) FREE T4 1.4 0.9 - 1.7 ng/dL [facility] Blood 11/06/2018 9:30 AM EDT 11/06/2018 9:36 AM EDT Justin Barnhart MD LAB BLOOD ORDERABLES Final Re sult [address] [address] * TSH (11/06/2018 9:30 AM EDT) TSH 2.72 0.27 - 4.20 uIU/mL [facility] Blood 11/06/2018 9:30 AM EDT 11/06/2018 9:36 AM EDT us Justin Barnhart MD LAB BLOOD ORDERABLES Final Re sult Performing Organization Address [facility]/ZIP Co de Phone Number [address] [address] * Albumin (11/06/2018 9:30 AM EDT) ALBUMIN 4.3 3.9 - 4.8 g/dL [facility] Blood 11/06/2018 9:30 AM EDT 11/06/2018 9:36 AM EDT us Justin Barnhart MD LAB BLOOD ORDERABLES Final Re sult Performing Organization Address [facility] Co de Phone Number [address] [address] * Magnesium (11/06/2018 9:30 AM EDT) MAGNESIUM 2.2 1.6 - 2.6 mg/dL [facility] Blood 11/06/2018 9:30 AM EDT 11/06/2018 9:36 AM EDT us Justin Barnhart MD LAB BLOOD ORDERABLES Final Re sult Performing Organization Address [facility] Co de Phone Number [address] [address] * Phosphorus (11/06/2018 9:30 AM EDT) PHOSPHORUS 3.5 2.7 - 4.5 mg/dL [facility] Blood 11/06/2018 9:30 AM EDT 11/06/2018 9:36 AM EDT us Justin Barnhart MD LAB BLOOD ORDERABLES Final Re sult Performing Organization Address [facility]/ZIP Co de Phone Number [address] [address] * Basic metabolic panel (11/06/2018 9:30 AM EDT) SODIUM 141 133 - 146 mmol/L [facility] CHLORIDE 102 96 - 108 mmol/L [facility] POTASSIUM 4.1 3.3 - 5.1 mmol/L [facility] CO2 28 21 - 35 mmol/L [facility] BUN 17 6 - 19 mg/dL [facility] CREATININE 0.80 0.5 - 1.5 mg/dL [facility] GLUCOSE 96 70 - 99 mg/dL [facility] CALCIUM 9.6 8.4 - 10.3 mg/dL [facility] EGFR 83 >59 mL/min/1.7 3m2 [facility] Comment:If patient is black, multiply result by 1.159. Estimated glomerular filtration rate calculated using the CKD-EPI equation. ANION GAP 15 10 - 20 mmol/L [facility] Blood 11/06/2018 9:30 AM EDT 11/06/2018 9:36 AM EDT us Justin Barnhart MD LAB BLOOD ORDERABLES Final Re sult [address] [address] * Urine protein/creatinine with ratio (05/08/2018 9:53 AM EST) URINE TOTAL PROTEIN 18.7 mg/dL [facility] URINE CREATININE 171 mg/dL [facility] URINE TP CRE RATIO 0.11 0 - 0.19 [facility] Urine (Urine) 05/08/2018 9:5 3 AM EST 05/08/2018 9:58 AM EST us Justin Barnhart MD URINE ORDERABLES Final Result [address] [address] * Free T4 (05/08/2018 9:53 AM EST) FREE T4 1.3 0.9 - 1.7 ng/dL [facility] Blood 05/08/2018 9:53 AM EST 05/08/2018 9:59 AM EST us Justin Barnhart MD LAB BLOOD ORDERABLES Final Re sult Performing Organization Address [facility]/ZIP Co de Phone Number [address] [address] * (ABNORMAL) TSH (05/08/2018 9:53 AM EST) TSH 4.21(H) 0.27 - 4.20 uIU/mL [facility] Blood 05/08/2018 9:53 AM EST 05/08/2018 9:59 AM EST us Justin Barnhart MD LAB BLOOD ORDERABLES Final Re sult Performing Organization Address [facility] Co de Phone Number [address] [address] * Albumin (05/08/2018 9:53 AM EST) ALBUMIN 4.1 3.9 - 4.8 g/dL [facility] Blood 05/08/2018 9:53 AM EST 05/08/2018 9:59 AM EST us Justin Barnhart MD LAB BLOOD ORDERABLES Final Re sult Performing Organization Address [facility] Co de Phone Number [address] [address] * Magnesium (05/08/2018 9:53 AM EST) MAGNESIUM 1.9 1.6 - 2.6 mg/dL [facility] Blood 05/08/2018 9:53 AM EST 05/08/2018 9:59 AM EST us Justin Barnhart MD LAB BLOOD ORDERABLES Final Re sult Performing Organization Address [facility]/ZIP Co de Phone Number [address] [address] * Phosphorus (05/08/2018 9:53 AM EST) PHOSPHORUS 2.9 2.7 - 4.5 mg/dL [facility] Blood 05/08/2018 9:53 AM EST 05/08/2018 9:59 AM EST us Justin Barnhart MD LAB BLOOD ORDERABLES Final Re sult Performing Organization Address City/[facility]/ZIP Co de Phone Number [address] [address] * (ABNORMAL) Basic metabolic panel (05/08/2018 9:53 AM EST) SODIUM 142 133 - 146 mmol/L [facility] CHLORIDE 102 96 - 108 mmol/L [facility] POTASSIUM 4.0 3.3 - 5.1 mmol/L [facility] CO2 25 21 - 35 mmol/L [facility] BUN 16 6 - 19 mg/dL [facility] CREATININE 0.70 0.5 - 1.5 mg/dL [facility] GLUCOSE 122(H) 70 - 99 mg/dL [facility] CALCIUM 9.2 8.4 - 10.3 mg/dL [facility] EGFR 88 >59 mL/min/1.7 3m2 [facility] Comment:If patient is black, multiply result by 1.159. Estimated glomerular filtration rate calculated using the CKD-EPI equation. ANION GAP 19 10 - 20 mmol/L [facility] Blood 05/08/2018 9:53 AM EST 05/08/2018 9:59 AM EST us Justin Barnhart MD LAB BLOOD ORDERABLES Final Re sult Performing Organization Address City/[facility]/ZIP Co de Phone Number [address] [address] documented in this encounter Visit Diagnoses Diagnosis Essential hypertension, malignant- Primary Myxedema heart disease Unspecified hypothyroidism Personal history of urinary calculi documented in this encounter Care Teams Cradle Slide Maker Relationship Specialty Start Date End Date Justin Barnhart MD [address] [place] [address], [address] [place] [address] [email or web address] PCP - General Nephrology 02/06/18 02/19/24 Nii Menchaca MD [address] [place] [address] [address] [place] [address] [email or web address] PCP - General Family Medicine 02/20/24 Nii Menchaca MD [address] [facility], [address] [place] [address] [email or web address] Insurance Assigned Provider 09/13/24 documented as of this encounter Additional Source Comments The information contained in this document represents components of the legal health record. It is not the complete legal health record.[facility]
--- OUTSIDE RECORDS SUMMARY | 2025-02-19 13:23 | XMS_ITS | Encounter Summary ---
Author Organization [facility] Address Critical access hospital [employer] [facility] [address] [place] [address] Phone Care Team Providers Care Preforms Laminator Name Role Phone Justin Barnhart MD Primary Care Provider [phone] Nii Menchaca MD Primary Care Provider [phone] Nii Menchaca MD Unavailable Encounter Details Date Type Department Care Team (Latest Contact Info) Description 05/13/2018 Transcribe Orders [facility] [address] [place] [address] Dieter Nagy MD 10 [facility] 2 [place] [address] [email or web address] Dysphagia, unspecified type (Primary Dx); Abnormal barium swallow Social History Tobacco Use Types Packs/Day Years [...] 10:00 AM EDT Office Visit [facility] [address] [place] [address] Nii Menchaca MD [address] [facility], [address] [place], [place] [phone] 05/27/2025 10:45 AM EST Office Visit [facility] [place] [address] [place] [address] Evy Hernandez MD, PhD [address] [place] [address] [email or web address] documented as of this encounter Results * Comprehensive metabolic panel (05/13/2018 11:35 AM EST) SODIUM 144 133 - 146 mmol/L [facility] POTASSIUM 4.1 3.3 - 5.1 mmol/L [facility] CHLORIDE 106 96 - 108 mmol/L [facility] CO2 23 21 - 35 mmol/L [facility] BUN 15 6 - 19 mg/dL [facility] CREATININE 0.70 0.5 - 1.5 mg/dL [facility] GLUCOSE 99 70 - 99 mg/dL [facility] ALBUMIN 4.6 3.9 - 4.8 g/dL [facility] TOTAL PROTEIN 7.6 6.5 - 8.0 g/dL [facility] CALCIUM 9.2 8.4 - 10.3 mg/dL [facility] ALKALINE PHOSPHATASE 76 39 - 117 U/L [facility] TOTAL BILIRUBIN 0.4 0.0 - 1.2 mg/dL [facility] AST 30 0 - 37 U/L [facility] ALT 37 0 - 40 U/L [facility] GLOBULIN 3.0 1 - 4.8 g/dL [facility] EGFR 88 >59 mL/min/1.7 3m2 [facility] Comment:If patient is black, multiply result by 1.159. Estimated glomerular filtration rate calculated using the CKD-EPI equation. ANION GAP 19 10 - 20 mmol/L [facility] Blood 05/13/2018 11:3 5 AM EST 05/13/2018 11:39 AM EST us Dieter Nagy MD LAB BLOOD ORDERABLES Final Result [address] [address] * (ABNORMAL) CBC (05/13/2018 11:35 AM EST) WBC 7.29 3.40 - 11.20 K/uL [facility] RBC 4.70 4.50 - 5.50 M/uL [facility] HGB 15.1 13.0 - 17.0 g/dL [facility] HCT 45.2 40.0 - 51.0 % [facility] PLT 345 130 - 400 K/uL [facility] MCV 96.2 79.0 - 98.0 fL [facility] MCH 32.1 27.0 - 34.8 pg [facility] MCHC 33.4 31.5 - 36.0 g/dL [facility] RDW 14.0 10.8 - 14.6 % [facility] MPV 9.3(L) 9.4 - 12.4 fl [facility] NRBC 0.00 0.00 /100 WBCs [facility] ABSOLUTE NRBC 0.00 0.00 K/uL [facility] Blood 05/13/2018 11:3 5 AM EST 05/13/2018 11:39 AM EST us Dieter Nagy MD LAB BLOOD ORDERABLES Final Result Performing Organization Address City/State/[facility] Co de Phone Number [facility] [address] [place] [address] documented in this encounter Visit Diagnoses Diagnosis Dysphagia, unspecified type- Primary Abnormal barium swallow documented in this encounter Care Teams Preforms Laminator Relationship Specialty Start Date End Date Justin Barnhart MD [address] [place] [address], [address] [place] [address] PCP - General Nephrology 02/06/18 02/19/24 Nii Menchaca MD [address] [place] [address], [address] [place] [address] PCP - General Family Medicine 02/20/24 Nii Menchaca MD [address] [place] [address], [address] [place] [address] [email or web address] Insurance Assigned Provider 09/13/24 documented as of this encounter Additional Source Comments The information contained in this document represents components of the legal health record. It is not the complete legal health record.[facility]
--- OUTSIDE RECORDS SUMMARY | 2025-02-19 13:23 | XMS_ITS | Clinical Summary ---
Author Organization [facility] Address [address] [facility] [address] [place] [address] Phone Care Team Providers Care Larriman Name Role Phone Nii Menchaca MD Primary Care Provider [phone] Nii Menchaca MD Unavailable Allergies Active Allergy Reactions Criticality Noted Date Comments Mold Extracts Shortness Of Breath,Sneezing High 06/09/2024 Penicillin G Benzathin,Procain 05/15/2018 D/t mold allergy per patient Penicillins Other (See Comments) 11/10/2019 Medications omeprazole (PRILOSEC) 20 mg TbEC Take 20 mg by mouth daily before breakfast. Active GINKGO BILOBA ORAL Take by mouth. Active ascorbic acid (SHANIQUA-C ORAL) Take by mouth. 90 mg 3-5 per day Active cyanocobalamin, vitamin B-12, (VITAMIN B-12 ORAL) Take 2,500 mcg by mouth daily. Active coenzyme Q10 100 mg capsule Take 100 mg by mouth daily. Active turmeric root extract 500 mg Tab Take by mouth. Active Medication-Free Text Liver support 3 per day Active Medication-Free Text Vizcarra oil (nigella stiva oil) 2 per day Active cholecalciferol , vitamin D3, (VITAMIN D3 ORAL) Take 2,000 Units by mouth. Active melatonin 5 mg Tab Take 10 mg by mouth nightly at bedtime. Active LACTASE ENZYME ORAL Take 375 mg by mouth. 3 per day before dairy Active CALCIUM ORAL Take by mouth. Active dorzolamide-dario oloL (COSOPT) 22.3-6.8 mg/mL ophthalmic solution Place 1 drop into each eye 2 (two) times a day. 05/05/2024 Active ROCKLATAN 0.02-0.005 % Drop Place 1 drop into each eye nightly at bedtime. Active levothyroxine (SYNTHROID, LEVOTHROID) 150 MCG tablet Take 1 tablet (150 mcg total) by mouth every morning. 90 tablet 3 06/11/2024 Active amLODIPine (NORVASC) 10 MG tablet TAKE 1 TABLET IN THE MORNING 90 tablet 3 06/15/2024 Active Active Problems Problem Noted Date Diagnosed Date Environmental allergies 08/21/2024 Impaired fasting glucose 08/21/2024 Kidney stone 01/13/2021 Assessment & Plan (01/13/2021 5:31 PM EDT): Patient with prior kidney stone years ago [...] pain -tylenol prn fever -zofran prn n/v Other constipation 01/13/2021 Assessment & Plan (01/13/2021 3:52 PM EDT): Patient states he normally has BMs every morning but started having issues on Sat. He did a saline enema with some stool on . 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 Ureterolithiasis 01/13/2021 Encounters Date Type Department Care Team Description 02/03/2025 8:19 AM EDT - 02/03/2025 11:59 PM EDT Hospital Encounter [facility] [address] [place] [address] Nii Menchaca MD Discharge Disposition: Home or Self Care 02/02/2025 Transcribe Orders [facility] [address] [place] [address] Abner Sandoval MD Screening for prostate cancer (Primary Dx); Malignant neoplasm of prostate 01/14/2025 10:15 AM EDT Office Visit [facility] [address] [place] [address] Evy Hernandez MD, PhD Primary open angle glaucoma of left eye, severe stage (Primary Dx) from Last 3 Months Immunizations Immunization Administration Dates Next Due COVID-19 (Pre-04/01) Pfizer Vaccine, mRNA, PF ,07/14/2020 Influenza High-Dose Quadrivalent Preservative Fr ee IM 04/13/2022 Influenza High-Dose Trivalent Preservative Free IM 02/27/2019 Influenza Quadrivalent Adjuvanted Preservative F ree IM 04/18/2023,02/09/2020 Influenza Trivalent Adjuvanted Preservative free IM 02/20/2018,02/21/2017 Pneumococcal polysaccharide PPSV23 05/23/2007 RSV Vaccine (monovalent, adjuvanted) 03/06/2024 Zoster recombinant 08/12/2024 Social History Tobacco Use Types Packs/Day Years Used Date Smoking Tobacco: Never Smokeless Tobacco: Never Tobacco Cessation:Counseling Given: Not Answered Alcohol Use Standard Drinks/Week Comments Yes 0 (1 standard drink = 0.6 oz pur e alcohol) One or two at a celebration Child or Family Care Answer Date Record ed Do you have problems with on e of the following making it difficult for you to work, study, or receive health care? No 02/20/2024 Education Answer Date Recorded Are you interested in more education? Not on lakeisha e 10/05/2022 Are you concerned about learning? Not on file 10/05/2022 No 10/05/2022 No 10/05/2022 Food Answer Date Recorded Within the past 6 months we worried whether our food would run out before we got money to buy more. Never True 02/20/2024 Within the past 6 months the food we bought just didn't last and we didn't have enough money to get more. Never True Residential Stability Answer Date Recor ded What is your housing situation today? I have marcelle sing 02/20/2024 How many times have you move d in the past 12 months? Zero (I did not move) 02/20/2024 Paying for Meds Answer Date Recorded Do you have trouble paying for medicines? No 02/20/2024 Paying Utility Bills Answer Date Record ed Do you have trouble paying your heating or elect ricity bill? No 02/20/2024 Transportation Answer Date Recorded Has the lack of transportati on kept you from medical appointments or from getting medications? No 02/20/2024 Digital Access Answer Date Recorded No 02/20/2024 Yes 02/20/2024 Do you have reliable internet access at home? Ye s 02/20/2024 Do you have a device (e.g., phone, tablet, computer) with a working camera? Yes 02/20/2024 Intimate Partner Violence Answer Date R ecorded Are you denied basic needs s uch as food, clothing, or medical care? No 06/09/2024 In the past 12 months have y ou been in a relationship with a person who hurts, threatens, or tries to control you? No 06/09/2024 Are you denied basic needs s uch as food, clothing, or medical care? No 06/09/2024 In the past 12 months have y ou been in a relationship with a person who hurts, threatens, or tries to control you? No 06/09/2024 Sex and Gender Information Value Date Recorded Sex Assigned at Male 01/13/2021 9:38 AM EDT Legal Sex Male 10:14 PM EDT Gender Identity Not on file Sexual Orientation Not on file Last Filed Vital Signs Vital Sign Reading Time Taken Comments Blood Pressure 146/90 08/21/2024 10:11 AM EDT Pulse 58 08/21/2024 10:11 AM EDT Temperature 36.6 C (97.9 F) 06/09/2024 12:13 PM EST Respiratory Rate 6 06/09/2024 10:26 AM EST Oxygen Saturation 97% 08/21/2024 10:11 AM EDT Inhaled Oxygen Concentration - - Weight 82.6 kg (182 lb) 08/21/2024 10:11 AM EDT Height 177.8 cm (5' 10 ) 08/21/2024 10:11 AM EDT Body Mass Index 26.11 08/21/2024 10:11 AM EDT Plan of Treatment Upcoming Encounters Date Type Department Care Team (Late st Contact Info) Description 02/23/2025 10:00 AM EDT Office Visit [facility] [address] [place] [address] Nii Menchaca MD [address] [facility], [address] [place] [address] 05/27/2025 10:45 AM EST Office Visit [facility] [address] [place] [address] Evy Hernandez MD, PhD [address] [place] [address] [email or web address] Health [email or web address] Due Date Last Done Comments Adult Td,Tdap Booster 1935 PNEUMOCOCCAL VACCINES (50+ years) (2 of 2 - PCV) 05/23/2008 05/23/2007 ZOSTER VACCINES (2 of 2) 10/07/2024 08/12/2024 INFLUENZA VACCINE (#1) 2025 , 04/13/2022, 02/09/2020, Additional history exists COVID-19 VACCINE ( season) 2025 04/07/2024, 03/11/2023, 03/07/2022, Additional history exists DEPRESSION SCREENING 02/19/2025 02/20/2024 TSH LEVEL 02/03/2026 02/03/2025, 07/12, 05/26/2024, Additional history exists RSV VACCINE Completed 03/06/2024 HEPATITIS A VACCINES Aged Out No long er eligible based on patient's age to complete this topic HIB VACCINES Aged Out No longer eligi ble based on patient's age to complete this topic MENINGOCOCCAL VACCINES (ACWY) Aged Out No longer eligible based on patient's age to complete this topic MENINGOCOCCAL VACCINES (B) Aged Out N o longer eligible based on patient's age to complete this topic Medical Devices Implanted Type Area News Anchor Device Identifier Shelf Expiration Date Model / Serial / Lot Bilateral Knees Loop Polaris [id number] Stent Ureteral Standard Shaft/Straight Tip - [id number] Implanted:Qty: 1 on 01/14/2021 by Javan Reich MD at [facility] Right: Ureter [employer] 07/19/2023 [id number] / / [id number] [employer] [employer] 250mm Baerveldt Anterior Chamber Silicone Single Quadrant Drainage Tube - [id number] Implanted:Qty: 1 on 06/09/2024 by Evy Hernandez MD, PhD at [facility] [place] Left: Eye [employer] 10/03/2025 [id number] / [id number] / Tutoplast Sclera 5x8mm - [id number] Implanted:Qty: 1 on 06/09/2024 by Eyv Hernandez MD, PhD at [facility] [place] Left: Eye [employer] 07/10/2028 [id number] / [id number] / [id number] Procedures Procedure Name Priority Date/Time Associated Diagnosis Comments HEMOGLOBIN A1C Routine 02/03/2025 8:19 AM EDT Impaired fasting glucose TSH Routine 02/03/2025 8:19 AM EDT Acquired hypothyroidism COMPREHENSIVE METABOLIC PANEL Routine 02/03/2025 8:19 AM EDT Essential hypertension LIPID PANEL Routine 02/03/2025 8:19 AM EDT Essential hypertension CBC AND DIFFERENTIAL Routine 02/03/2025 8:19 AM EDT Essential hypertension PSA (SCREENING) Routine 02/03/2025 8:19 AM EDT Malignant neoplasm of prostate OCT, OPTIC NERVE - OU - BOTH EYES Routine 01/14/2025 10:59 AM EDT Primary open angle glaucoma of left eye, severe stage from Last 3 Months Results * (ABNORMAL) Comprehensive metabolic panel (02/03/2025 8:19 AM EDT) SODIUM 138 133 - 146 mmol/L [facility] POTASSIUM 4.2 3.3 - 5.1 mmol/L [facility] CHLORIDE 99 96 - 108 mmol/L [facility] CO2 26 21 - 35 mmol/L [facility] BUN 23(H) 6 - 19 mg/dL [facility] CREATININE 0.80 0.5 - 1.5 mg/dL [facility] GLUCOSE 119(H) 70 - 99 mg/dL [facility] ALBUMIN 4.5 3.9 - 4.8 g/dL [facility] TOTAL PROTEIN 8.2(H) 6.5 - 8.0 g/dL [facility] CALCIUM 9.6 8.4 - 10.3 mg/dL [facility] ALKALINE PHOSPHATASE 80 39 - 117 U/L [facility] TOTAL BILIRUBIN 0.7 0.0 - 1.2 mg/dL [facility] AST 23 0 - 37 U/L [facility] ALT 22 0 - 40 U/L [facility] GLOBULIN 3.7 1 - 4.8 g/dL [facility] EGFR 85 >59 mL/min/1.7 3m2 [facility] Comment:Estimated glomerular filtration rate calculated using the CKD-EPI refit equation. ANION GAP 17 10 - 20 mmol/L [facility] Blood 02/03/2025 8:19 AM EDT 02/03/2025 8:24 AM EDT us Nii Menchaca MD LAB BLOOD ORDERABLES Final Resul t [facility] [address] [place] [address] * (ABNORMAL) CBC and differential (02/03/2025 8:19 AM EDT) WBC 8.88 4.00 - 11.00 K/uL [facility] RBC 4.93 4.50 - 5.90 M/uL [facility] HGB 16.4 13.5 - 17.5 g/dL [facility] HCT 48.6 41.0 - 53.0 % [facility] PLT 264 150 - 450 K/uL [facility] MCV 98.6 80.0 - 100.0 fL [facility] MCH 33.3(H) 27.0 - 31.0 pg [facility] MCHC 33.7 32.0 - 36.0 g/dL [facility] RDW 13.2 11.5 - 14.5 % [facility] MPV 9.8 8.4 - 12.0 fL [facility] NRBC 0.00 0.00 /100 WBCs [facility] ABSOLUTE NRBC 0.00 0.00 K/uL [facility] DIFF METHOD Auto [facility] NEUTS 69.2 48.0 - 76.0 % [facility] LYMPHS 18.8 18.0 - 41.0 % [facility] MONOS 8.1 4.0 - 11.0 % [facility] EOS 2.7 0.0 - 5.0 % [facility] BASOS 1.0 0.0 - 1.5 % [facility] Granulocytes, immature (%) 0.2 0.0 - 0.9 % [facility] ABSOLUTE NEUTS 6.14 1.92 - 7.60 K/uL [facility] ABSOLUTE LYMPHS 1.67 0.72 - 4.10 K/uL [facility] ABSOLUTE MONOS 0.72 0.16 - 1.10 K/uL [facility] ABSOLUTE EOS 0.24 0.00 - 0.50 K/uL [facility] ABSOLUTE BASOS 0.09 0.00 - 0.15 K/uL [facility] Granulocytes, immature 0.02 0.00 - 0.09 K/uL [facility] Blood 02/03/2025 8:19 AM EDT 02/03/2025 8:24 AM EDT Nii Menchaca MD LAB BLOOD ORDERABLES Final Resul t Performing Organization Address City/[facility]/ZIP Co de Phone Number [address] [address] * (ABNORMAL) TSH (02/03/2025 8:19 AM EDT) TSH 5.64(H) 0.27 - 4.20 uIU/mL [facility] Blood 02/03/2025 8:19 AM EDT 02/03/2025 8:24 AM EDT Nii Menchaca MD LAB BLOOD ORDERABLES Final Resul t [address] [address] * PSA (screening) (02/03/2025 8:19 AM EDT) PSA 0.19 0 - 4.00 ng/mL [facility] Comment: Test Methodology Travis [email or web address] Patient results determined by assays using different manufacturers or methods may not be comparable. Blood 02/03/2025 8:19 AM EDT 02/03/2025 8:24 AM EDT us Abner Sandoval MD LAB BLOOD ORDERABLES Final Result Performing Organization Address City/[facility]/ZIP Co de Phone Number [address] [address] * (ABNORMAL) Hemoglobin A1c (02/03/2025 8:19 AM EDT) HEMOGLOBIN A1C 6.1(H) 4.3 - 5.8 % [facility] Blood 02/03/2025 8:19 AM EDT 02/03/2025 8:24 AM EDT Nii Menchaca MD LAB BLOOD ORDERABLES Final Resul t Performing Organization Address [facility] Co de Phone Number [address] [address] * (ABNORMAL) Lipid panel (02/03/2025 8:19 AM EDT) HDL 52 mg/dL [facility] Comment: Interpretation <40 mg/dL: Low HDL cholesterol (major risk factor for CHD) Greater than or equal to 60 mg/dL: High HDL cholesterol ( negative risk factor for CHD) HDL - cholesterol is affected by a number of factors, e.g. smoking, excerise, hormones, sex and age. CHOLESTEROL 143 0 - 240 mg/dL [facility] TRIGLYCERIDES 68 30 - 160 mg/dL [facility] LDL 77 50 - 129 mg/dL [facility] Comment: LDL levels in terms of risk for coronary heart disease: <100 mg/dL: Optimal 100-129 mg/dL: Near or above optimal 130-159 mg/dL: Borderline high 160-189 mg/dL: High >190 mg/dL: Very High CARDIAC RISK RATIO 2.8(L) 3.4 - 5.0 [facility] Blood 02/03/2025 8:19 AM EDT 02/03/2025 8:24 AM EDT us Nii Menchaca MD LAB BLOOD ORDERABLES Final Resul t [facility] [address] [place] [address] * OCT, Optic Nerve - OU - Both Eyes - (01/14/2025 10:59 AM EDT) Narrative [facility] - 01/14/2025 10:59 AM EDT Right Eye Optic nerve head and nerve fiber layer: Abnormal inferior. Left Eye Optic nerve head and nerve fiber layer: Edema. us Evy Hernandez MD, PhD OPHTHALMOLOGY IMAGING Fin al Result [facility] from Last 3 Months Insurance MEDICARE PART A & B [employer] MEDIC[employer] ENHANCE SUPPLEMENT MEDICARE PART A & B MEDICARE ENHANCE SUPPLEMENT Member Subscriber Plan / Payer (Ef fective 2016-Present) Name:Clement Jainur Relation to Subscriber:Self Name:Clement Jainur Payer ID:[id number] (NAIC) Group ID:Not on file Type:[employer] Address: [address] [place] [address] MEDICARE PART A & B [facility] MEDICARE ENHANCE SUPPLEMENT MEDICARE PART A & [place] [address] MEDICARE ENHANCE SUPPLEMENT Member Subscriber Plan / Payer ( fective 2016-Present) Name:Niels Jain Relation to Subscriber:Self Name:Niels Jain Payer ID:[id number] (NAIC) Group ID:Not on file Type:[employer] Address: [facility] [id number] [place] [address] MEDICARE PART A & B [facility] MEDICARE ENHANCE SUPPLEMENT MEDICARE PART A & B [facility] MEDICARE ENHANCE SUPPLEMENT Member Subscriber Plan / Payer (Ef fective 2016-) Name:Niels Jain Relation to Subscriber:Self Name:SusyClementur Payer ID:[id number] (NAIC) Group ID:Not on file Type:[employer] Address: 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 06/11/2024 9:17 AM * Full Code (Latest Code Status on File) Date Activated Date Inactivated Comments 01/13/2021 4:45 PM Question Answer Comments Code Status Confirmed With: Patient Care Teams Larriman Relationship Specialty Start Date End Date Nii Menchaca MD [address] [facility], [facility] [address] [place] [id number] [email or web address] PCP - General Family Medicine 02/20/24 Nii Menchaca MD 234 [facility] [address] [place] [id number] [email or web address] Insurance Assigned Provider 09/13/24 Additional Source Comments The information contained in this document represents components of the legal health record. It is not the complete legal health record.[facility]
--- OUTSIDE RECORDS SUMMARY | 2025-02-19 13:23 | XMS_ITS | Encounter Summary ---
Author Organization [facility] Address [facility] [employer] [facility] [address] [place] [address] Phone Care Team Providers Care Air Brake Worker Name Role Phone Justin Barnhart MD Primary Care Provider [phone] Nii Menchaca MD Primary Care Provider [phone] Nii Menchaca MD Unavailable Encounter Details Date Type Department Care Team (Latest Contact Info) Description 05/05/2019 Transcribe Orders [facility] [address] [place] [address] Justin Barnhart MD [address] [facility], [address] [place], [place] [phone] [email or web address] Essential hypertension, malignant (Primary Dx); Myxedema heart [...] Description 02/23/2025 10:00 AM EDT Office Visit [facility] [address] [place], [place] [phone] Nii Menchaca MD [address] [place] [address], [address] [place] [address] 05/27/2025 10:45 AM EST Office Visit [facility] [address] [place] [address] Evy Hernandez MD, PhD [address] [place] [address] [email or web address] documented as of this encounter Results * Phosphorus (11/03/2019 10:04 AM EDT) PHOSPHORUS 2.9 2.7 - 4.5 mg/dL [facility] Blood 11/03/2019 10:0 4 AM EDT 11/03/2019 10:29 AM EDT Justin Barnhart MD LAB BLOOD ORDERABLES Final Re sult [address] [address] * Free T4 (05/05/2019 11:02 AM EST) FREE T4 1.4 0.9 - 1.7 ng/dL [facility] Blood 05/05/2019 11:0 2 AM EST 05/05/2019 12:14 PM EST Justin Barnhart MD LAB BLOOD ORDERABLES Final Re sult Performing Organization Address City/[facility]/ZIP Co de Phone Number [address] [address] * TSH (05/05/2019 11:02 AM EST) TSH 1.98 0.27 - 4.20 uIU/mL [facility] Blood 05/05/2019 11:0 2 AM EST 05/05/2019 12:14 PM EST Justin Barnhart MD LAB BLOOD ORDERABLES Final Re sult Performing Organization Address City/[facility]/ZIP Co de Phone Number [address] [address] * Albumin (05/05/2019 11:02 AM EST) ALBUMIN 4.5 3.9 - 4.8 g/dL [facility] Blood 05/05/2019 11:0 2 AM EST 05/05/2019 12:14 PM EST Justin Barnhart MD LAB BLOOD ORDERABLES Final Re sult Performing Organization Address [facility] Co de Phone Number [address] [address] * Magnesium (05/05/2019 11:02 AM EST) MAGNESIUM 2.1 1.6 - 2.6 mg/dL [facility] Blood 05/05/2019 11:0 2 AM EST 05/05/2019 12:14 PM EST Justin Barnhart MD LAB BLOOD ORDERABLES Final Re sult Performing Organization Address [facility] Co de Phone Number [address] [address] * Phosphorus (05/05/2019 11:02 AM EST) PHOSPHORUS 3.1 2.7 - 4.5 mg/dL [facility] Blood 05/05/2019 11:0 2 AM EST 05/05/2019 12:14 PM EST Justin Barnhart MD LAB BLOOD ORDERABLES Final Re sult Performing Organization Address [facility] Co de Phone Number [address] [address] * (ABNORMAL) Basic metabolic panel (05/05/2019 11:02 AM EST) SODIUM 141 133 - 146 mmol/L [facility] CHLORIDE 101 96 - 108 mmol/L [facility] POTASSIUM 3.9 3.3 - 5.1 mmol/L [facility] CO2 26 21 - 35 mmol/L [facility] BUN 16 6 - 19 mg/dL [facility] CREATININE 0.70 0.5 - 1.5 mg/dL [facility] GLUCOSE 169(H) 70 - 99 mg/dL [facility] CALCIUM 9.5 8.4 - 10.3 mg/dL [facility] EGFR 87 >59 mL/min/1.7 3m2 [facility] Comment:If patient is black, multiply result by 1.159. Estimated glomerular filtration rate calculated using the CKD-EPI equation. ANION GAP 18 10 - 20 mmol/L [facility] Blood 05/05/2019 11:0 2 AM EST 05/05/2019 12:14 PM EST us Justin Barnhart MD LAB BLOOD ORDERABLES Final Re sult [facility] Organization Address City/State/ZIP Co de Phone Number [facility] [address] [place] [address] documented in this encounter Visit Diagnoses Diagnosis Essential hypertension, malignant- Primary Myxedema heart disease Unspecified hypothyroidism Personal history of urinary calculi documented in this encounter Care Teams Air Brake Worker Relationship Specialty Start Date End Date Justin Barnhart MD [address] [facility], [address] [place] [address] [email or web address] PCP - General Nephrology 02/06/18 02/19/24 Nii Menchaca MD 234 [facility], [address] [place] [address] PCP - General Family Medicine 02/20/24 Nii Menchaca MD [address] [facility], [address] [place] [address] [email or web address] Insurance Assigned Provider 09/13/24 documented as of this encounter Additional Source Comments The information contained in this document represents components of the legal health record. It is not the complete legal health record.[facility]
--- OUTSIDE RECORDS SUMMARY | 2025-02-19 13:23 | XMS_ITS | Encounter Summary ---
Author Organization [facility] Address Formerly [facility] [place] ([place] [facility] [address] [place] [address] Phone Care Team Providers Care Product Picker Name Role Phone Justin Barnhart MD Primary Care Provider [phone] Nii Menchaca MD Primary Care Provider [phone] Nii Menchaca MD Unavailable Encounter Details Date Type Department Care Team (Late st Contact Info) Description 05/29/2018 Procedure Pass [facility] Endoscopy Admitting Dept Virtual Department [address] [place] [address] Social History Tobacco Use Types Packs/Day Years [...] Description 02/23/2025 10:00 AM EDT Office Visit [facility] [address] [place], [place] [phone] Nii Menchaca MD [address] [place] [address], [address] [place], [place] [phone] 05/27/2025 10:45 AM EST Office Visit [facility] [address] [address] Evy Hernandez MD, PhD [address] [place] [address] [email or web address] documented as of this encounter Visit Diagnoses Not on filedocumented in this encounter Care Teams Product Picker Relationship Specialty Start Date End Date Justin Barnhart MD [address] [place] [address], [address] [place] [address] PCP - General Nephrology 02/06/18 02/19/24 Nii Mnechaca MD [address] [place] [address] 7 [place] [address] PCP - General Family Medicine 02/20/24 Nii Menchaca MD [address] [place] [address] 7 [place] [address] Insurance Assigned Provider 09/13/24 documented as of this encounter Additional Source Comments The information contained in this document represents components of the legal health record. It is not the complete legal health record.[facility]
--- OUTSIDE RECORDS SUMMARY | 2025-02-19 13:24 | XMS_ITS | Encounter Summary ---
Author Organization [facility] Address [address] [place] [address] Phone Care Team Providers Care Consumer Relations Complaint Clerk Name Role Phone Justin Barnhart MD Primary Care Provider [phone] Nii Menchaca MD Primary Care Provider [phone] Nii Menchaca MD Unavailable Encounter Details Date Type Department Care Team (Late st Contact Info) Description 02/06/2018 Ancillary Orders [facility], X-Ray - [address] [address] Abner Sandoval MD [address] [place] [address] [address] [place], [place] [phone] Nephrolithiasis Social History Tobacco Use Types Packs/Day Years [...] Description 02/23/2025 10:00 AM EDT Office Visit [facility] Medicine [address] [place], [place] [phone] Nii Menchaca MD 234 [facility], [address] [place], [place] [phone] 05/27/2025 10:45 AM EST Office Visit [facility] [place] [address] [place] [address] Evy Hernandez MD, PhD [address] [place] [address] [email or web address] documented as of this encounter Results * XR ABDOMEN 1 VIEW (02/06/2018 10:20 AM EDT) Anatomical Region Laterality Modality Abdomen Radiographic Sylvia ging 02/06/2018 11:3 9 AM EDT Impressions 02/06/2018 12:14 PM EDT No new stones. POS - [id number] Edited by: Phyllis Galicia on 02/06/2018 12:07 PM Narrative 02/06/2018 12:14 PM EDT Supine views of the abdomen are obtained and compared to prior of February 21, 2017. Calcified mesenteric nodes on the left and multiple surgical clips in the pelvis again noted. Scoliosis and degenerative change again noted in the spine. No bony destructive lesions. Linear changes suggested at the lung bases, presumably scarring or atelectatic. Procedure Note Giuseppe Ann MD - 02/06/2018 Supine views of the abdomen are obtained and compared to prior ofFebruary 21, 2017. Calcified mesenteric nodes on the left and multiplesurgical clips in the pelvis again noted. Scoliosis and degenerativechange again noted in the spine. No bony destructive lesions. Linearchanges suggested at the lung bases, presumably scarring or atelectatic. IMPRESSION: No new stones. POS - [id number] Edited by: Phyllis Galicia on 02/06/2018 12:07 PM Abner Sandoval MD IMG XR ABDOMEN Final Result documented in this encounter Visit Diagnoses Diagnosis Nephrolithiasis Calculus of kidney Nephrolithiasis Calculus of kidney documented in this encounter Care Teams Consumer Relations Complaint Clerk Relationship Specialty Start Date End Date Justin Barnhart MD [address] [place] [address], [address] [place] [address] [email or web address] PCP - General Nephrology 02/06/18 02/19/24 Nii Menchaca MD [address] [place] [address] 7 [place] [address] [email or web address] PCP - General Family Medicine 02/20/24 Nii Menchaca MD [address] [place] [address], [facility] 7 [place] [address] [email or web address] Insurance Assigned Provider 09/13/24 documented as of this encounter Additional Source Comments The information contained in this document represents components of the legal health record. It is not the complete legal health record.[facility]
--- OUTSIDE RECORDS SUMMARY | 2025-02-19 13:24 | XMS_ITS | Encounter Summary ---
Author Organization [facility] Address [address] [place] [address] Phone Care Team Providers Care Veterinary X Ray Operator Name Role Phone Justin Barnhart MD Primary Care Provider [phone] Nii Menchaca MD Primary Care Provider [phone] Nii Menchaca MD Unavailable Encounter Details Date Type Department Care Team (Late st Contact Info) Description 02/06/2018 Transcribe Orders [facility] [address] [place] [address] Abner Sandoval MD [address] [place] [address] [address] [place] [address] Malignant neoplasm of prostate (Primary Dx) Social History Tobacco Use Types Packs/Day Years [...] 02/23/2025 10:00 AM EDT Office Visit [facility] Medicine [address] [place], [place] [phone] Nii Menchaca MD 234 [facility], [address], [place] [phone] 05/27/2025 10:45 AM EST Office Visit [facility] [place] 800 [place] [address] Evy Hernandez MD, PhD 800 [place] [address] [email or web address] documented as of this encounter Results * PSA (screening) (02/06/2018 9:09 AM EDT) PSA 0.20 0 - 4.00 ng/mL [facility] Blood 02/06/2018 9:09 AM EDT 02/06/2018 9:15 AM EDT us Abner Sandoval MD LAB BLOOD ORDERABLES Final Result [facility] 30 [place] [address] documented in this encounter Visit Diagnoses Diagnosis Malignant neoplasm of prostate- Primary documented in this encounter Care Teams Veterinary X Ray Operator Relationship Specialty Start Date End Date Justin Barnhart MD 51 [facility], [address] [place] [address] [email or web address] PCP - General Nephrology 02/06/18 02/19/24 Nii Menchaca MD 234 [facility], [facility] [address] [place] [address] [email or web address] PCP - General Family Medicine 02/20/24 Nii Menchaca MD 234 [facility], [facility] [address] [place] [address] [email or web address] Insurance Assigned Provider 09/13/24 documented as of this encounter Additional Source Comments The information contained in this document represents components of the legal health record. It is not the complete legal health record.[facility]
--- OUTSIDE RECORDS SUMMARY | 2025-02-19 13:24 | XMS_ITS | Encounter Summary ---
Author Organization [facility] Address [address] [place] [address] Phone Care Team Providers Care Parking Supervisor Name Role Phone Nii Menchaca MD Primary Care Provider [phone] Nii Menchaca MD Unavailable Encounter Details Date Type Department Care Team (Late st Contact Info) Description 06/09/2024 Procedure Pass [facility] [address] [place] [address] Social History Tobacco Use Types Packs/Day Years Used Date Smoking Tobacco: Never Smokeless Tobacco: Never Alcohol Use Standard Drinks/Week Comments Yes 0 (1 standard drink = 0.6 oz pur e alcohol) One or [facility] Child or Family Care Answer Date Record [...] AM EDT Office Visit [facility] [address] [place] [address] Nii Menchaca MD 234 [facility], [address] [place] [address] 05/27/2025 10:45 AM EST Office Visit [facility] [place] 800 [place] [address] Evy Hernandez MD, PhD 800 [place] [address] [email or web address] documented as of this encounter Visit Diagnoses Not on filedocumented in this encounter Additional Health Concerns Assessment Noted Time PHQ-2 Depression Total Score: 0 02/20/20 24 8:12 AM EDT documented as of this encounter Care Teams Parking Supervisor Relationship Specialty Start Date End Date Nii Menchaca MD 234 [facility] 7 [place] [address] PCP - General Family Medicine 02/20/24 Nii Menchaca MD 234 [facility] 7 [place] [address] Insurance Assigned Provider 09/13/24 documented as of this encounter Additional Source Comments The information contained in this document represents components of the legal health record. It is not the complete legal health record.[facility]
--- OUTSIDE RECORDS SUMMARY | 2025-02-19 13:24 | XMS_ITS | Encounter Summary ---
Author Organization [facility] Address Formerly [facility], [facility] [address] [place] [address] Phone Care Team Providers Care Noodle Press Operator Name Role Phone Justin Barnhart MD Primary Care Provider [phone] Nii Menchaca MD Primary Care Provider [phone] Nii Menchaca MD Unavailable Encounter Details Date Type Department Care Team (Late st Contact Info) Description 02/17/2018 Ancillary Orders Virtual Department [address] [place] [address] Justin Barnhart MD 51 [facility], 3 [place] [address] [email or web address] Dysphagia, unspecified type; Hiatal hernia Social History Tobacco Use Types Packs/Day Years [...] Description 02/23/2025 10:00 AM EDT Office Visit [facility] 234 [place] [address] Nii Menchaca MD 234 [facility], [address] [place] [address] 05/27/2025 10:45 AM EST Office Visit [facility] [place] 800 [place] [address] Evy Hernandez MD, PhD 800 [place] [address] [email or web address] documented as of this encounter Results * FL BARIUM SWALLOW ESOPHAGRAM SINGLE CONTRAST (03/14/2018 8:30 AM EDT) Anatomical Region Laterality Modality Chest Radiographic Sylvia ging 03/14/2018 8:53 AM EDT Impressions 03/14/2018 9:02 AM EDT 1. Fixed narrowing in the distal esophagus associated with mucosal irregularity. Endoscopy is recommended for further evaluation. 2. Moderate size hiatal hernia. FLUOROSCOPY TIME: 4 min. 40 sec; 25 IMAGES/FRAMES POS - [id number] Narrative 03/14/2018 9:02 AM EDT EXAM: FL BARIUM SWALLOW ESOPHAGRAM DOUBLE CONTRAST BARIUM SWALLOW HISTORY: Dysphagia, hiatal hernia. Difficulty swallowing solids. Comparison: Abdominal CT on June 28, 2014. Discussion: The patient swallowed gas-containing granules and barium without any difficulty. There is an area of fixed narrowing in the distal esophagus with mucosal irregularity. The esophagus superior to the narrowing point shows mild dilatation and delayed emptying. Esophagus distal to the narrowing point shows moderate dilatation. Moderate size hiatal hernia, as seen on the prior CT study. A 12 mm barium capsule got stuck at the level of the above described distal esophageal narrowing. Procedure Note Zarina Rosario MD - 03/14/2018 EXAM: FL BARIUM SWALLOW ESOPHAGRAM DOUBLE CONTRAST BARIUM SWALLOW HISTORY: Dysphagia, hiatal hernia. Difficulty swallowing solids. Comparison: Abdominal CT on June 28, 2014. Discussion: The patient swallowed gas-containing granules and barium without anydifficulty. There is an area of fixed narrowing in the distal esophagus with mucosalirregularity. The esophagus superior to the narrowing point shows milddilatation and delayed emptying. Esophagus distal to the narrowing pointshows moderate dilatation. Moderate size hiatal hernia, as seen on the prior CT study. A 12 mm barium capsule got stuck at the level of the above describeddistal esophageal narrowing. IMPRESSION: 1. Fixed narrowing in the distal esophagus associated with mucosalirregularity. Endoscopy is recommended for further evaluation. 2. Moderate size hiatal hernia. FLUOROSCOPY TIME: 4 min. 40 sec; 25 IMAGES/FRAMES POS - [id number] Justin Barnhart MD IMG VA MISC Final Result documented in this encounter Visit Diagnoses Diagnosis Dysphagia, unspecified type Hiatal hernia 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 Dysphagia, unspecified type Hiatal hernia 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 documented in this encounter Care Teams Noodle Press Operator Relationship Specialty Start Date End Date Justin Barnhart MD [address] [place] [address], [address] [place] [address] [email or web address] PCP - General Nephrology 02/06/18 02/19/24 Nii Menchaca MD [address] [place] [address] 7 [place] [address] PCP - General Family Medicine 02/20/24 Nii Menchaca MD [address] [place] [address] 7 [place] [address] [email or web address] Insurance Assigned Provider 09/13/24 documented as of this encounter Additional Source Comments The information contained in this document represents components of the legal health record. It is not the complete legal health record.[facility]
--- OUTSIDE RECORDS SUMMARY | 2025-02-19 13:24 | XMS_ITS | Encounter Summary ---
Author Organization [facility] Address [facility] [employer] [facility] [address] [place] [address] Phone Care Team Providers Care Psychiatric Security Nurse Name Role Phone Unknown, Unknown Primary Care Provider Justin Reed MD Primary Care Provider [phone] Nii Menchaca MD Primary Care Provider [phone] Nii Menchaca MD Unavailable Encounter Details Date Type Department Care Team (Latest Contact Info) Description 05/16/2017 Transcribe Orders [facility] [address] [place] [address] Justin Barnhart MD 51 [facility], [address] [place], [place] [phone] [email or web address] Essential hypertension, benign (Primary Dx); Myxedema heart disease; Personal history [...] Description 02/23/2025 10:00 AM EDT Office Visit [facility] [address] [place], [place] [phone] Nii Menchaca MD 234 [facility], [address] [place], [place] [phone] 05/27/2025 10:45 AM EST Office Visit [facility] [place] [address] [place] [address] Evy Hernandez MD, PhD [address] [place] [address] [email or web address] documented as of this encounter Results * Free T4 (11/14/2017 9:57 AM EDT) FREE T4 1.3 0.9 - 1.7 ng/dL [facility] Blood 11/14/2017 9:57 AM EDT 11/14/2017 10:11 AM EDT us Justin Barnhart MD LAB BLOOD ORDERABLES Final Re sult Performing Organization Address City/[facility]/ZIP Co de Phone Number [address] [address] * TSH (11/14/2017 9:57 AM EDT) TSH 1.38 0.27 - 4.20 uIU/mL [facility] Blood 11/14/2017 9:57 AM EDT 11/14/2017 10:11 AM EDT us Justin Barnhart MD LAB BLOOD ORDERABLES Final Re sult [address] [address] * Magnesium (11/14/2017 9:57 AM EDT) MAGNESIUM 2.1 1.6 - 2.6 mg/dL [facility] Blood 11/14/2017 9:57 AM EDT 11/14/2017 10:11 AM EDT us Justin Barnhart MD LAB BLOOD ORDERABLES Final Re sult Performing Organization Address City/[facility]/ZIP Co de Phone Number [address] [address] * (ABNORMAL) Basic metabolic panel (11/14/2017 9:57 AM EDT) SODIUM 145 133 - 146 mmol/L [facility] CHLORIDE 105 96 - 108 mmol/L [facility] POTASSIUM 4.1 3.3 - 5.1 mmol/L [facility] CO2 30 21 - 35 mmol/L [facility] BUN 18 6 - 19 mg/dL [facility] CREATININE 0.80 0.5 - 1.5 mg/dL [facility] GLUCOSE 174(H) 70 - 99 mg/dL [facility] CALCIUM 8.8 8.4 - 10.3 mg/dL [facility] EGFR 84 >59 mL/min/1.7 3m2 [facility] Comment:If patient is black, multiply result by 1.159. The eGFR calculation has changed from the MDRD equation to the CKD-EPI equation as of August 13, 2017. ANION GAP 14 10 - 20 mmol/L [facility] Blood 11/14/2017 9:57 AM EDT 11/14/2017 10:11 AM EDT Justin Barnhart MD LAB BLOOD ORDERABLES Final Re sult Performing Organization Address [facility] Co de Phone Number [address] [address] * Free T4 (05/16/2017 10:09 AM EST) FREE T4 1.3 0.9 - 1.7 ng/dL [facility] Blood 05/16/2017 10:0 9 AM EST 05/16/2017 10:16 AM EST Justin Barnhart MD LAB BLOOD ORDERABLES Final Re sult Performing Organization Address City/[facility]/ZIP Co de Phone Number [address] [address] * TSH (05/16/2017 10:09 AM EST) TSH 2.79 0.27 - 4.20 uIU/mL [facility] Blood 05/16/2017 10:0 9 AM EST 05/16/2017 10:16 AM EST Jutsin Barnhart MD LAB BLOOD ORDERABLES Final Re sult Performing Organization Address [facility]/ZIP Co de Phone Number [address] [address] * Magnesium (05/16/2017 10:09 AM EST) Pathologist [facility] MAGNESIUM 2.2 1.6 - 2.6 mg/dL [facility] Blood 05/16/2017 10:0 9 AM EST 05/16/2017 10:16 AM EST Justin Barnhart MD LAB BLOOD ORDERABLES Final Re sult Performing Organization Address City/[facility] Co de Phone Number [address] [address] * (ABNORMAL) Basic metabolic panel (05/16/2017 10:09 AM EST) Pathologist [facility] SODIUM 142 133 - 146 mmol/L [facility] CHLORIDE 102 96 - 108 mmol/L [facility] POTASSIUM 4.3 3.3 - 5.1 mmol/L [facility] CO2 28 21 - 35 mmol/L [facility] BUN 16 6 - 19 mg/dL [facility] CREATININE 0.70 0.5 - 1.5 mg/dL [facility] GLUCOSE 100(H) 70 - 99 mg/dL [facility] CALCIUM 9.3 8.4 - 10.3 mg/dL [facility] EGFR >60 mL/min/1.7 3m2 [facility] Comment:Abnormal if <60. If patient is -English, multiply the result by 1.21. ANION GAP 16 10 - 20 mmol/L [facility] Blood 05/16/2017 10:0 9 AM EST 05/16/2017 10:16 AM EST us Justin Barnhart MD LAB BLOOD ORDERABLES Final Re sult Performing Organization Address City/[facility]/ZIP Co de Phone Number [address] [address] * (ABNORMAL) Lipid panel (05/16/2017 10:09 AM EST) HDL 48 mg/dL [facility] Comment: Interpretation: Risk Level Males Decreased >45 mg/dL Average 40-45 mg/dL Increased <40 mg/dL CHOLESTEROL 139 0 - 240 mg/dL [facility] TRIGLYCERIDES 109 30 - 160 mg/dL [facility] LDL 69 50 - 129 mg/dL [facility] Comment: LDL levels in terms of risk for coronary heart disease: <100 mg/dL: Optimal 100-129 mg/dL: Near or above optimal 130-159 mg/dL: Borderline high 160-189 mg/dL: High >190 mg/dL: Very High CARDIAC RISK RATIO 2.9(L) 3.4 - 5.0 C [facility] Blood 05/16/2017 10:0 9 AM EST 05/16/2017 10:16 AM EST us Justin Barnhart MD LAB BLOOD ORDERABLES Final Re sult Performing Organization Address [facility] Co de Phone Number [address] [address] documented in this encounter Visit Diagnoses Diagnosis Essential hypertension, 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 Personal history of urinary calculi documented in this encounter Care Teams Psychiatric Security Nurse Relationship Specialty Start Date End Date Unknown, Unknown, MD PCP - General 05/16/17 02/05/18 Justin Barnhart MD [address] [place] [address], [address] [place] [address] [email or web address] PCP - General Nephrology 02/06/18 02/19/24 Nii Menchaca MD [address] [place] [address], [address] [place] [address] [email or web address] PCP - General Family Medicine 02/20/24 Nii Menchaca MD [address] [place] [address], [address] [place] [address] [email or web address] Insurance Assigned Provider 09/13/24 documented as of this encounter Additional Source Comments The information contained in this document represents components of the legal health record. It is not the complete legal health record.[facility]
--- OUTSIDE RECORDS SUMMARY | 2025-02-19 13:24 | XMS_ITS | Encounter Summary ---
Author Organization [facility] Address [address] [place] [address] Phone Care Team Providers Care Level Vial Inspector Name Role Phone Nii Menchaca Primary Care Provider [phone] Encounter Details Date Type Department Care Team (Late st Contact Info) Description 06/04/2024 Documentation Only [facility] [place], [address] [place] [place] [address] Brenda Soriano [address] [place] [phone] Social History Tobacco Use Types Packs/Day Years [...] file Not on file Not on file documented as of this encounter Plan of Treatment Not on file documented as of this encounter Visit Diagnoses Not on filedocumented in this encounter Care Teams Level Vial Inspector Relationship Specialty Start Date End Date Nii Menchaca [address] [place] [address] PCP - General Family Medicine 06/04/24 documented as of this encounter
--- OUTSIDE RECORDS SUMMARY | 2025-02-19 13:24 | XMS_ITS | Encounter Summary ---
Author Organization [facility] [place], Address [address] [place] [address] Phone Care Team Providers Care Golf Course Designer Name Role Phone Nii Menchaca Primary Care Provider [phone] Encounter Details Date Type Department Care Team (Late st Contact Info) Description 11/21/2023 Documentation Only [facility] [place], - [address] [address] Brenda Soriano [address] [place] [address] Social History Tobacco Use Types Packs/Day Years [...] on filedocumented in this encounter Care Teams Golf Course Designer Relationship Specialty Start Date End Date Nii Menchaca [address] [place] [address] PCP - General Family Medicine 06/04/24 documented as of this encounter
--- OUTSIDE RECORDS SUMMARY | 2025-02-19 13:24 | XMS_ITS | Encounter Summary ---
Author Organization [facility] [place], Address [address] [place] [address] Phone Care Team Providers Care Justice Court Judge Name Role Phone Nii Menchaca Primary Care Provider [phone] Encounter Details Date Type Department Care Team (Late st Contact Info) Description 11/06/2022 Documentation Only [facility] [place], - [address] [address] Justin Barnhart MD Social History Tobacco Use Types Packs/Day Years [...] on filedocumented in this encounter Care Teams Justice Court Judge Relationship Specialty Start Date End Date Nii Menchaca [address] [place] [address] PCP - General Family Medicine 06/04/24 documented as of this encounter
--- OUTSIDE RECORDS SUMMARY | 2025-02-19 13:24 | XMS_ITS | Encounter Summary ---
Author Organization [facility] Address [address] [place] [address] Phone Care Team Providers Care Second Officer Name Role Phone Nii Menchaca MD Primary Care Provider [phone] Nii Menchaca MD Unavailable Encounter Details Date Type Department Care Team ([facility] st Contact Info) Description 05/01/2024 Ophth Exam [facility] Emergency Department [address] [place] [address] Mena Lezama MD [address] [place] [address] [email or web address] Social History Tobacco Use Types Packs/Day Years Used Date Smoking Tobacco: Never Smokeless Tobacco: Never Alcohol Use Standard Drinks/Week Comments Yes 0 (1 standard drink = 0.6 oz pur e alcohol) occ Child or Family Care Answer Date Record [...] your housing situation today? I have marcelle zhang 02/20/2024 How many times have you move [...] as food, clothing, or medical care? No 05/01/2024 In the past 12 months have y ou been in a relationship with a person who hurts, threatens, or tries to control you? No 05/01/2024 Are you denied basic needs s uch as food, clothing, or medical care? No 05/01/2024 In the past 12 months have y ou been in a relationship with a person who hurts, threatens, or tries to control you? No 05/01/2024 Sex and Gender Information Value Date Recorded Sex Assigned at Male 01/13/2021 9:38 AM EDT Legal Sex Male 10:14 PM EDT Gender Identity Not on file Sexual Orientation Not on file documented as of this encounter Functional Status * Calculated C-SSRS Risk Score (Lifetime/Recent) Answer Date of Assessment Author No Risk Indicated 05/01/2024 9:14 AM Hemal Melton RN * [place] Suicide Severity Rating Scale (Screener/Recent Self-Report) Question Answer Date of Assessment Author 2. Non-Specific Active Suici sherlyn Thoughts (Past 1 Month) No 05/01/2024 9:14 AM Hemal Melton RN 6. Suicidal Behavior (Lifetime) No 9:14 AM Hemal Melton RN documented as of this encounter Plan of Treatment Upcoming Encounters Date Type Department Care Team (Late st Contact Info) Description 02/23/2025 10:00 AM EDT Office Visit [facility] Medicine [address] [place] [address] Nii Menchaca MD 234 [facility] 7 [place] [address] 05/27/2025 10:45 AM EST Office Visit [facility] [place] [address] [place] [address] Evy Hernandez MD, PhD [address] [place] [address] [email or web address] documented as of this encounter Visit Diagnoses Not on filedocumented in this encounter Additional Health Concerns Assessment Noted Time PHQ-2 Depression Total Score: 0 02/20/20 8:12 AM EDT documented as of this encounter Care Teams Second Officer Relationship Specialty Start Date End Date Nii Menchaca MD [address] [place] [address] PCP - General Family Medicine 02/20/24 Nii Menchaca MD [address] [place] [address] 7 [place] [address] Insurance Assigned Provider 09/13/24 documented as of this encounter Additional Source Comments The information contained in this document represents components of the legal health record. It is not the complete legal health record.[facility]
--- OUTSIDE RECORDS SUMMARY | 2025-02-19 13:24 | XMS_ITS | Encounter Summary ---
Author Organization [facility] Address [address] [facility] [address] [place] [address] Phone Care Team Providers Care Transverse Abdominal Muscle Nurse Name Role Phone Justin Barnhart MD Primary Care Provider [phone] Nii Menchaca MD Primary Care Provider [phone] Nii Menchaca MD Unavailable Encounter Details Date Type Department Care Team (Late st Contact Info) Description 05/15/2018 Procedure Pass [facility]oscopy Admitting Dept Virtual Department [address] [place] [address] Social History Tobacco Use Types Packs/Day Years [...] Description 02/23/2025 10:00 AM EDT Office Visit [facility] [address] [place] [address] Nii Menchaca MD 234 [facility], [address] [place] [address] 05/27/2025 10:45 AM EST Office Visit [facility] [place] 800 [place] [address] Evy Hernandez MD, PhD [address] [place] [address] [email or web address] documented as of this encounter Visit Diagnoses Not on filedocumented in this encounter Care Teams Transverse Abdominal Muscle Nurse Relationship Specialty Start Date End Date Justin Barnhart MD [address] [place] [address], [address] [place] [address] PCP - General Nephrology 02/06/18 02/19/24 Nii Menchaca MD [address] [place] [address], [facility] 7 [place] [address] PCP - General Family Medicine 02/20/24 Nii Menchaca MD [address] [place] [address], [address] [place] [address] Insurance Assigned Provider 09/13/24 documented as of this encounter Additional Source Comments The information contained in this document represents components of the legal health record. It is not the complete legal health record.[facility]
== END 2025-02-19 11:55 | disposition home or self-care (01) ==
LOC: HO.HUSH 11:16
PROVIDERS: Visit Provider Urology
DX: C61 Malignant neoplasm of prostate (principal); N20.0 Calculus of kidney
CPT/HCPCS: 99214

== ENCOUNTER → 2025-02-19 11:15 | Outpatient (BNVA) | payer MEDICARE, OTHER, SELFPAY | PROVIDERS: Visit Provider Urology | DX: Z08 Encounter for follow-up examination after completed treatment for malignant neoplasm (principal); Z85.46 Personal history of malignant neoplasm of prostate; N20.0 Calculus of kidney | CPT/HCPCS: 99212 ==

== ENCOUNTER 2025-02-24 11:20 | Outpatient (AMB) | payer MEDICARE, OTHER, SELFPAY ==
--- OUTSIDE RECORDS SUMMARY | 2025-02-23 10:00 | XMS_ITS | Encounter Summary ---
Author Organization [facility] Address [facility] [employer] [facility] [address] [place] [address] Phone Care Team Providers Care Channel Cementer Insole Machine Name Role Phone Nii Menchaca MD Primary Care Provider [phone] Nii Menchaca MD Unavailable Reason for Visit * Reason Comments Follow Up Visit Lab results-Thyroid review Encounter Details Date Type Department Care Team ([facility] st Contact Info) Description 02/23/2025 10:00 AM EDT Office Visit [facility] Medicine [address] [place] [address] Nii Menchaca MD [address] [place] [address] [address] [place] [address] [email or web address] Essential hypertension (Primary Dx); Impaired fasting glucose; Acquired hypothyroidism; Glaucoma of both eyes, unspecified glaucoma type; Bilateral impacted cerumen Social History Tobacco Use Types Packs/Day Years [...] on file documented as of this encounter Last Filed Vital Signs Vital Sign Reading Time Taken Comments Blood Pressure 138/80 02/23/2025 10:21 AM EDT Pulse 58 02/23/2025 10:21 AM EDT Temperature - - Respiratory Rate - - Oxygen Saturation 96% 02/23/2025 10:21 AM EDT Inhaled Oxygen Concentration - - Weight - - Height - - Body Mass Index - - documented in this encounter Progress Notes * Nii Menchaca MD - 02/23/2025 10:00 AM EDT Subjective Niels Jain is a 89 y.o. male. History of Present Illness The patient presents for evaluation of blood pressure, low heart rate, thyroid issues, and a lump on the forearm. He reports no changes in his medication or supplement regimen since his last visit. There are no symptoms of lightheadedness or dizziness associated with his low heart rate. He has been cutting the tops of his socks as they feel tight, which is a side effect of amlodipine. He does not experience shortness of breath with exertion. Regarding his diet, he has reduced candy consumption to once a week. He reports feeling cold and fatigued but has not missed any doses of levothyroxine, which he takes first thing in the morning on an empty stomach. He is currently on levothyroxine 137 mcg. Recently, he had a fall while trying to remove a rock from a path using a pry bar, resulting in a small lump on his forearm. There is no pain associated with this lump, and he did not apply ice to itimmediately after the incident. He has glaucoma and uses a couple of eyedrops. A new shunt was placed on . He is under the care of an eye doctor in [place], and his intraocular pressure is well-controlled. He has not yet received his influenza vaccine this year. He is scheduled for an allergy injection tomorrow and was advised to wait 5 days between the allergy injection and any other injections. He isalso due for a tetanus vaccine. 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 He is under the care of a corn cutter operator. Diet: Reduced candy consumption to once a week PAST SURGICAL HISTORY: - Prostate surgery in 1997 - New shunt placement for glaucoma on - Basal cell carcinoma removal from the ear - Squamous cell carcinoma removal from the top of the ear Review of Systems All other systems reviewed and are negative. Objective Physical Exam Ears: Cerumen impaction noted bilaterally. Eyes: Bilateral conjunctival injection noted. Respiratory: Clear to auscultation, no wheezing, rales or rhonchi. Cardiovascular: Regular rate and rhythm, no murmurs, rubs, or gallops. Gastrointestinal: Soft, no tenderness, no distention, no masses. Extremities: Bilateral ankle edema noted. Musculoskeletal: Small hematoma on left forearm. Skin: No changes in size, shape, or color of skin lesions. Recent basal cell carcinoma and squamouscell carcinoma removal noted. Results Labs - A1c: Borderline range - TSH: Elevated - Electrolytes: Sodium, potassium, chloride, CO2 are normal - BUN: 23 - Creatinine: 0.8 - Fasting glucose: 119 - Albumin and total protein: Normal - Calcium: Normal - Liver enzymes: Alkaline phosphatase, bilirubin, AST, ALT are normal - GFR: 85 - PSA: 0.19 - CBC: White blood cell count, hemoglobin, platelet count are normal. MCH is slightly up. Neutrophils, lymphocytes, monocytes, eosinophils, basophils are normal - Cholesterol panel: Total cholesterol is 143, HDL is 52, triglycerides are 68, LDL is 77, ratio is2.8 Hospital Outpatient Visit on 02/03/2025 Component Date Value Ref Range Status PSA 02/03/2025 0.19 0 - 4.00 ng/mL Final Comment: Test Methodology Travis [email or web address] Patient results determined by assays using different manufacturers or methods may not be comparable. WBC 02/03/2025 8.88 4.00 - 11.00 K/uL Final RBC 02/03/2025 4.93 4.50 - 5.90 M/uL Final HGB 02/03/2025 16.4 13.5 - 17.5 g/dL Final HCT 02/03/2025 48.6 41.0 - 53.0 % Final PLT 02/03/2025 264 150 - 450 K/uL Final MCV 02/03/2025 98.6 80.0 - 100.0 fL Final MCH 02/03/2025 33.3 (H) 27.0 - 31.0 pg Final MCHC 02/03/2025 33.7 32.0 - 36.0 g/dL Final RDW 02/03/2025 13.2 11.5 - 14.5 % Final MPV 02/03/2025 9.8 8.4 - 12.0 fL Final NRBC 02/03/2025 0.00 0.00 /100 WBCs Final ABSOLUTE NRBC 02/03/2025 0.00 0.00 K/uL Final DIFF METHOD 02/03/2025 Auto Final NEUTS 02/03/2025 69.2 48.0 - 76.0 % Final LYMPHS 02/03/2025 18.8 18.0 - 41.0 % Final MONOS 02/03/2025 8.1 4.0 - 11.0 % Final EOS 02/03/2025 2.7 0.0 - 5.0 % Final BASOS 02/03/2025 1.0 0.0 - 1.5 % Final Granulocytes, immature (%) 02/03/2025 0.2 0.0 - 0.9 % Final ABSOLUTE NEUTS 02/03/2025 6.14 1.92 - 7.60 K/uL Final ABSOLUTE LYMPHS 02/03/2025 1.67 0.72 - 4.10 K/uL Final ABSOLUTE MONOS 02/03/2025 0.72 0.16 - 1.10 K/uL Final ABSOLUTE EOS 02/03/2025 0.24 0.00 - 0.50 K/uL Final ABSOLUTE BASOS 02/03/2025 0.09 0.00 - 0.15 K/uL Final Granulocytes, immature 02/03/2025 0.02 0.00 - 0.09 K/uL Final HDL 02/03/2025 52 mg/dL Final Comment: Interpretation <40 mg/dL: Low HDL cholesterol (major risk factor for CHD) Greater than or equal to 60 mg/dL: High HDL cholesterol ( negative risk factor for CHD) HDL - cholesterol is affected by a number of factors, e.g. smoking, excerise, hormones, sex and age. CHOLESTEROL 02/03/2025 143 0 - 240 mg/dL Final TRIGLYCERIDES 02/03/2025 68 30 - 160 mg/dL Final LDL 02/03/2025 77 50 - 129 mg/dL Final Comment: LDL levels in terms of risk for coronary heart disease: <100 mg/dL: Optimal 100-129 mg/dL: Near or above optimal 130-159 mg/dL: Borderline high 160-189 mg/dL: High >190 mg/dL: Very High CARDIAC RISK RATIO 02/03/2025 2.8 (L) 3.4 - 5.0 Final SODIUM 02/03/2025 138 133 - 146 mmol/L Final POTASSIUM 02/03/2025 4.2 3.3 - 5.1 mmol/L Final CHLORIDE 02/03/2025 99 96 - 108 mmol/L Final CO2 02/03/2025 26 21 - 35 mmol/L Final BUN 02/03/2025 23 (H) 6 - 19 mg/dL Final CREATININE 02/03/2025 0.80 0.5 - 1.5 mg/dL Final GLUCOSE 02/03/2025 119 (H) 70 - 99 mg/dL Final ALBUMIN 02/03/2025 4.5 3.9 - 4.8 g/dL Final TOTAL PROTEIN 02/03/2025 8.2 (H) 6.5 - 8.0 g/dL Final CALCIUM 02/03/2025 9.6 8.4 - 10.3 mg/dL Final ALKALINE PHOSPHATASE 02/03/2025 80 39 - 117 U/L Final TOTAL BILIRUBIN 02/03/2025 0.7 0.0 - 1.2 mg/dL Final AST 02/03/2025 23 0 - 37 U/L Final ALT 02/03/2025 22 0 - 40 U/L Final GLOBULIN 02/03/2025 3.7 1 - 4.8 g/dL Final EGFR 02/03/2025 85 >59 mL/min/1.73m2 Final Estimated glomerular filtration rate calculated using the CKD-EPI refit equation. ANION GAP 02/03/2025 17 10 - 20 mmol/L Final TSH 02/03/2025 5.64 (H) 0.27 - 4.20 uIU/mL Final HEMOGLOBIN A1C 02/03/2025 6.1 (H) 4.3 - 5.8 % Final Assessment & Plan 1. Blood pressure management: - Blood pressure readings are within the normal range today at 138/80. - Low heart rate of 58 is likely due to amlodipine, which can also cause ankle swelling, particularly in warmer weather. This side effect is not harmful and should subside as the weather cools. - A prescription refill for amlodipine will be sent to the pharmacy. 2. Thyroid issues: - TSH levels are elevated, suggesting that the current dose of levothyroxine may be insufficient. Symptoms include feeling cold and fatigued. - It appears he has been taking an incorrect dose of levothyroxine (137 mcg instead of the prescribed 150 mcg). - A prescription for levothyroxine 150 mcg will be sent to the pharmacy. 3. Borderline diabetes: - A1c levels are borderline, indicating a slightly increased risk for diabetes. Fasting glucose level is also borderline at 119 mg/dL. - He is advised to maintain a balanced diet, limiting intake of candy, sugar, and starches such as potatoes, corn, and pasta to once or twice a week. The primary components of his diet should be grains, protein, and vegetables. 4. Small hematoma on forearm: - Lump on the forearm is likely a small hematoma, which should resolve on its own over time. - He is advised to apply ice to any similar injuries in the future to aid in faster recovery. 5. Glaucoma: - He had a new shunt placed on and is regularly seeing his eye doctor in [place]. Hisintraocular pressure is well-controlled. - He is currently using a couple of eyedrops. 6. Health maintenance: - He is due for his influenza vaccine and tetanus vaccine. - He is advised to receive these vaccines at the pharmacy in a few weeks, especially after his upcoming allergy shot. 7. Ear wax removal: - His ears will be cleaned out during this visit. Niels Jain presents for a cerumen impaction of his bilateral ears. he was agreeable to a flushand this was flushed out without any complications. he will call if there is any other issues. he understands and agrees. I obtained verbal consent from the patient or their proxy to record this visit for purposes of producing a draft of the encounter documentation. documented in this encounter Plan of Treatment Upcoming Encounters Date Type Department Care Team (Late st Contact Info) Description 05/27/2025 10:45 AM EST Office Visit [facility] [place] [address] [place] [address] Evy Hernandez MD, PhD 800 [place] [address] [email or web address] 08/24/2025 10:30 AM EDT Office Visit [address] [address] Nii Menchaca MD 234 [facility], [address] [place] [address] [email or web address] Scheduled Orders Name Type Priority Associated Diagnoses Orde r Schedule TSH Lab Routine Acquired hypothyroidism Expected: 04/06/2025 (Approximate), Expires: 02/23/2026 Hemoglobin A1c Lab Routine Impaired fasting glucose Expected: 08/02/2025 (Approximate), Expires: 02/23/2026 Comprehensive metabolic panel Lab Routine Essential hypertension Expected: 08/02/2025 (Approximate), Expires: 02/23/2026 Lipid panel Lab Routine Essential hypertension Expected: 08/02/2025 (Approximate), Expires: 02/23/2026 CBC and differential Lab Routine Essential hypertension Expected: 08/02/2025 (Approximate), Expires: 02/23/2026 TSH Lab Routine Acquired hypothyroidism Expected: 08/02/2025 (Approximate), Expires: 02/23/2026 documented as of this encounter Visit Diagnoses Diagnosis Essential hypertension- Primary Unspecified essential hypertension Impaired fasting glucose Acquired hypothyroidism Unspecified hypothyroidism Glaucoma of both eyes, unspecified glaucoma type Bilateral impacted cerumen Impacted cerumen documented in this encounter Additional Health Concerns Assessment Noted Time PHQ-2 Depression Total Score: 0 02/24/20 25 10:20 AM EDT documented as of this encounter Care Teams Channel Cementer Insole Machine Relationship Specialty Start Date End Date Nii Menchaca MD [address] [place] [address], [facility] 7 [place] [address] [email or web address] PCP - General Family Medicine 02/20/24 Nii Menchaca MD 234 [facility], [address] [place] [address] [email or web address] Insurance Assigned Provider 09/13/24 documented as of this encounter Additional Source Comments The information contained in this document represents components of the legal health record. It is not the complete legal health record.[facility]
--- OUTSIDE RECORDS SUMMARY | 2025-02-24 14:37 | XMS_ITS | Clinical Summary ---
Author Organization [facility], Address [address] [place] [phone] Phone Care Team Providers Care Reinforced Ironworker Name Role Phone Nii Menchaca Primary Care Provider [phone] Allergies Active Allergy Reactions Criticality Noted Date [...] age to complete this topic Insurance Medicare [facility] Care Teams Reinforced Ironworker Relationship Specialty Start Date End Date Nii Menchaca [address] [place] [address] PCP - General Family Medicine 06/04/24
--- OUTSIDE RECORDS SUMMARY | 2025-02-24 14:37 | XMS_ITS | Encounter Summary ---
Author Organization [facility] Address [address] [place] [address] Phone Care Team Providers Care Therapist'S Assistant Name Role Phone Justin Barnhart MD Primary Care Provider [phone] Nii Menchaca MD Primary Care Provider [phone] Nii Menchaca MD Unavailable Encounter Details Date Type Department Care Team (Late st Contact Info) Description 05/29/2018 Procedure Pass [facility] Endoscopy Admitting Dept Virtual Department [address] [place] [address] Social History Tobacco Use Types Packs/Day Years [...] Description 05/27/2025 10:45 AM EST Office Visit [facility] [place] [address] [place] [address] Evy Hernandez MD, PhD 800 [place] [address] [email or web address] 08/24/2025 10:30 AM EDT Office Visit [facility] Medicine [address] [place] [address] Nii Menchaca MD [address] [address] [email or web address] documented as of this encounter Visit Diagnoses Not on filedocumented in this encounter Care Teams Therapist'S Assistant Relationship Specialty Start Date End Date Justin Barnhart MD [address] [place] [address], [address] [place] [address] [email or web address] PCP - General Nephrology 02/06/18 02/19/24 Nii Menchaca MD [address] [place] [address] 7 [place] [address] PCP - General Family Medicine 02/20/24 Nii Menchaca MD [address] [place] [address] 7 [place] [address] [email or web address] Insurance Assigned Provider 09/13/24 documented as of this encounter Additional Source Comments The information contained in this document represents components of the legal health record. It is not the complete legal health record.[facility]
--- OUTSIDE RECORDS SUMMARY | 2025-02-24 14:37 | XMS_ITS | Encounter Summary ---
Author Organization [facility] Address [address] [place] [address] Phone Care Team Providers Care Leather Grainer Name Role Phone Justin Barnhart MD Primary Care Provider [phone] Nii Menchaca MD Primary Care Provider [phone] Nii Menchaca MD Unavailable Encounter Details Date Type Department Care Team (Late st Contact Info) Description 02/28/2021 Ancillary Orders [facility], X-Ray - [address] [address] Javan Reich MD [address] [place] [address], [address] [place] [address] [email or web address] Calculus of ureter Social History [...] 10:45 AM EST Office Visit [facility] [address] [address] Evy Hernandez MD, PhD [address] [place] [address] [email or web address] 08/24/2025 10:30 AM EDT Office Visit [facility] [address] [place] [address] Nii Menchaca MD 234 [facility], [address] [place] [address] [email or web address] documented as of this encounter Results * [...] changeis detected. IMPRESSION: No radiopaque calculi detected. Javan Reich MD IMG XR ABDOMEN Final Result documented in this encounter Visit Diagnoses Diagnosis Calculus of ureter Calculus of ureter documented in this encounter Care Teams Leather Grainer Relationship Specialty Start Date End Date Justin Barnhart MD [address] [place] [address], [address] [place] [address] [email or web address] PCP - General Nephrology 02/06/18 02/19/24 Nii Menchaca MD [address] [place] [address] 7 [place] [address] [email or web address] PCP - General Family Medicine 02/20/24 Nii Menchaca MD [address] [place] [address] 7 [place] [address] [email or web address] Insurance Assigned Provider 09/13/24 documented as of this encounter Additional Source Comments The information contained in this document represents components of the legal health record. It is not the complete legal health record.[facility]
--- OUTSIDE RECORDS SUMMARY | 2025-02-24 14:37 | XMS_ITS | Encounter Summary ---
Author Organization [facility] Address [address] [place] [address] Phone Care Team Providers Care Awake Overnight Counselor Name Role Phone Justin Barnhart MD Primary Care Provider [phone] Nii Menchaca MD Primary Care Provider [phone] Nii Menchaca MD Unavailable Encounter Details Date Type Department Care Team (Latest Contact Info) Description 05/09/2021 Transcribe Orders [facility] [address] [place] [address] Justin Barnhart MD 51 [facility], [address] [place] [address] [email or web address] Hypothyroidism, unspecified type (Primary Dx); Essential hypertension, [...] 10:45 AM EST Office Visit [facility] [address] [address] Evy Hernandez MD, PhD [address] [place] [address] [email or web address] 08/24/2025 10:30 AM EDT Office Visit [facility] [address] [place] [address] Nii Menchaca MD 234 [facility], [address] [place] [address] documented as of this encounter Results * TSH with reflex (05/09/2021 10:18 AM EST) TSH 3.96 0.27 - 4.20 uIU/mL [facility] Blood 05/09/2021 10:1 8 AM EST 05/09/2021 10:34 AM EST Justin Barnhart MD LAB BLOOD ORDERABLES Final Re sult [facility] [address] [place] [address] * (ABNORMAL) Lipid panel (05/09/2021 10:18 AM EST) HDL 45 mg/dL [facility] Comment: Interpretation <40 mg/dL: Low HDL cholesterol (major risk factor for CHD) Greater than or equal to 60 mg/dL: High HDL cholesterol ( negative risk factor for CHD) HDL - cholesterol is affected by a number of factors, e.g. smoking, excerise, hormones, sex and age. CHOLESTEROL 141 0 - 240 mg/dL [facility] TRIGLYCERIDES 143 30 - 160 mg/dL [facility] LDL 67 50 - 129 mg/dL [facility] Comment: LDL levels in terms of risk for coronary heart disease: <100 mg/dL: Optimal 100-129 mg/dL: Near or above optimal 130-159 mg/dL: Borderline high 160-189 mg/dL: High >190 mg/dL: Very High CARDIAC RISK RATIO 3.1(L) 3.4 - 5.0 C [facility] Blood 05/09/2021 10:1 8 AM EST 05/09/2021 10:34 AM EST us Justin Barnhart MD LAB BLOOD ORDERABLES Final Re sult Performing Organization Address [facility] Co de Phone Number [address] [address] * (ABNORMAL) Renal panel (05/09/2021 10:18 AM EST) SODIUM 142 133 - 146 mmol/L [facility] POTASSIUM 4.1 3.3 - 5.1 mmol/L [facility] CHLORIDE 104 96 - 108 mmol/L [facility] CO2 26 21 - 35 mmol/L [facility] GLUCOSE 128(H) 70 - 99 mg/dL [facility] BUN 27(H) 6 - 19 mg/dL [facility] CREATININE 0.90 0.5 - 1.5 mg/dL [facility] CALCIUM 9.0 8.4 - 10.3 mg/dL [facility] PHOSPHORUS 3.1 2.7 - 4.5 mg/dL [facility] ALBUMIN 4.5 3.9 - 4.8 g/dL [facility] EGFR 78 >59 mL/min/1.7 3m2 [facility] Comment:Estimated glomerular filtration rate calculated using the CKD-EPI equation. ANION GAP 16 10 - 20 mmol/L [facility] Blood 05/09/2021 10:1 8 AM EST 05/09/2021 10:34 AM EST us Justin Barnhart MD LAB BLOOD ORDERABLES Final Re sult Performing Organization Address City/[facility]/ZIP Co de Phone Number [address] [address] documented in this encounter Visit Diagnoses Diagnosis Hypothyroidism, unspecified type- Primary Essential hypertension, malignant documented in this encounter Care Teams Awake Overnight Counselor Relationship Specialty Start Date End Date Justin Barnhart MD [address] [place] [address], [address] [place] [address] [email or web address] PCP - General Nephrology 02/06/18 02/19/24 Nii Menchaca MD 234 [facility] 7 [place] [address] [email or web address] PCP - General Family Medicine 02/20/24 Nii Menchaca MD 234 [facility] 7 [place] [address] [email or web address] Insurance Assigned Provider 09/13/24 documented as of this encounter Additional Source Comments The information contained in this document represents components of the legal health record. It is not the complete legal health record.[facility]
--- OUTSIDE RECORDS SUMMARY | 2025-02-24 14:37 | XMS_ITS | Encounter Summary ---
Author Organization [facility] Address [address] [place] [address] [place] [address] Phone Care Team Providers Care Sampler Radioactive Waste Name Role Phone Justin Barnhart MD Primary Care Provider Nii Menchaca MD Primary Care Provider [phone] Nii Menchaca MD Unavailable Encounter Details Date Type Department Care Team (Latest Contact Info) Description 05/05/2019 Transcribe Orders [facility] 12 [place] [address] Justin Barnhart MD 51 [facility], [address] [place] [address] [email or web address] Essential hypertension, malignant (Primary Dx); Myxedema heart [...] 10:45 AM EST Office Visit [facility] [address] [id number] Evy Hernandez MD, PhD [address] [place] [address] [email or web address] 08/24/2025 10:30 AM EDT Office Visit [facility] [address] [place] [address] Nii Menchaca MD 234 [facility], [address] [place] [address] [email or web address] documented as of this encounter Results * Phosphorus (11/03/2019 10:04 AM EDT) PHOSPHORUS 2.9 2.7 - 4.5 mg/dL [facility] Blood 11/03/2019 10:0 4 AM EDT 11/03/2019 10:29 AM EDT Justin Barnhart MD LAB BLOOD ORDERABLES Final Re sult [address] [address] * Free T4 (05/05/2019 11:02 AM EST) FREE T4 1.4 0.9 - 1.7 ng/dL [facility] Blood 05/05/2019 11:0 2 AM EST 05/05/2019 12:14 PM EST Justin Barnhart MD LAB BLOOD ORDERABLES Final Re sult [address] [address] * TSH (05/05/2019 11:02 AM EST) TSH 1.98 0.27 - 4.20 uIU/mL [facility] Blood 05/05/2019 11:0 2 AM EST 05/05/2019 12:14 PM EST Justin Barnhart MD LAB BLOOD ORDERABLES Final Re sult Performing Organization Address City/[facility]/ZIP Co de Phone Number [address] [address] * Albumin (05/05/2019 11:02 AM EST) ALBUMIN 4.5 3.9 - 4.8 g/dL [facility] Blood 05/05/2019 11:0 2 AM EST 05/05/2019 12:14 PM EST Justin Barnhart MD LAB BLOOD ORDERABLES Final Re sult Performing Organization Address [facility] Co de Phone Number [address] [address] * Magnesium (05/05/2019 11:02 AM EST) MAGNESIUM 2.1 1.6 - 2.6 mg/dL [facility] Blood 05/05/2019 11:0 2 AM EST 05/05/2019 12:14 PM EST Justin Barnhart MD LAB BLOOD ORDERABLES Final Re sult Performing Organization Address [facility] Co de Phone Number [address] [address] * Phosphorus (05/05/2019 11:02 AM EST) PHOSPHORUS 3.1 2.7 - 4.5 mg/dL [facility] Blood 05/05/2019 11:0 2 AM EST 05/05/2019 12:14 PM EST Justin Barnhart MD LAB BLOOD ORDERABLES Final Re sult Performing Organization Address [facility] Co de Phone Number [address] [address] * (ABNORMAL) Basic metabolic panel (05/05/2019 11:02 AM EST) SODIUM 141 133 - 146 mmol/L [facility] CHLORIDE 101 96 - 108 mmol/L [facility] POTASSIUM 3.9 3.3 - 5.1 mmol/L [facility] CO2 26 21 - 35 mmol/L [facility] BUN 16 6 - 19 mg/dL [facility] CREATININE 0.70 0.5 - 1.5 mg/dL [facility] GLUCOSE 169(H) 70 - 99 mg/dL [facility] CALCIUM 9.5 8.4 - 10.3 mg/dL [facility] EGFR 87 >59 mL/min/1.7 3m2 [facility] Comment:If patient is black, multiply result by 1.159. Estimated glomerular filtration rate calculated using the CKD-EPI equation. ANION GAP 18 10 - 20 mmol/L [facility] Blood 05/05/2019 11:0 2 AM EST 05/05/2019 12:14 PM EST us Justin Barnhart MD LAB BLOOD ORDERABLES Final Re sult [facility] Organization Address City/State/ZIP Co de Phone Number [facility] [address] [place] [address] documented in this encounter Visit Diagnoses Diagnosis Essential hypertension, malignant- Primary Myxedema heart disease Unspecified hypothyroidism Personal history of urinary calculi documented in this encounter Care Teams Sampler Radioactive Waste Relationship Specialty Start Date End Date Justin Barnhart MD 51 [facility], [address] [place] [address] [email or web address] PCP - General Nephrology 02/06/18 02/19/24 Nii Menchaca MD 234 [facility], [address] [place] [address] PCP - General Family Medicine 02/20/24 Nii Menchaca MD [address] [facility], [address] [place] [address] [email or web address] Insurance Assigned Provider 09/13/24 documented as of this encounter Additional Source Comments The information contained in this document represents components of the legal health record. It is not the complete legal health record.[facility]
--- OUTSIDE RECORDS SUMMARY | 2025-02-24 14:37 | XMS_ITS | Encounter Summary ---
Author Organization [facility] Address [facility] [employer] [facility] [address] [place] [address] Phone Care Team Providers Care Semiconductor Wafers Etch Operator Name Role Phone Justin Barnhart MD Primary Care Provider [phone] Nii Menchaca MD Primary Care Provider [phone] Nii Menchaca MD Unavailable Encounter Details Date Type Department Care Team (Late st Contact Info) Description 02/22/2021 Procedure Pass [place] Admitting Dept - Virtual Department [address] [place] [address] Social History Tobacco Use Types Packs/Day Years [...] 10:45 AM EST Office Visit [facility] [employer] [address] [place] [address] Evy Hernandez MD, PhD [address] [place] [address] [email or web address] 08/24/2025 10:30 AM EDT Office Visit [facility] [address] [place] [address] Nii Menchaca MD [address] [place] [address], [address] [place] [address] [email or web address] documented as of this encounter Visit Diagnoses Not on filedocumented in this encounter Care Teams Semiconductor Wafers Etch Operator Relationship Specialty Start Date End Date Justin Barnhart MD [address] [place] [address], [address] [place] [address] [email or web address] PCP - General Nephrology 02/06/18 02/19/24 Nii Menchaca MD [address] [place] [address], [facility] [address] [place] [address] PCP - General Family Medicine 02/20/24 Nii Menchaca MD [address] [place] [address], [address] [place] [address] [email or web address] Insurance Assigned Provider 09/13/24 documented as of this encounter Additional Source Comments The information contained in this document represents components of the legal health record. It is not the complete legal health record.[facility]
--- OUTSIDE RECORDS SUMMARY | 2025-02-24 14:37 | XMS_ITS | Encounter Summary ---
Author Organization [facility] Address [facility] [employer] [facility] [address] [place] [address] Phone Care Team Providers Care Completions Engineer Name Role Phone Justin Barnhart MD Primary Care Provider [phone] Nii Menchaca MD Primary Care Provider [phone] Nii Menchaca MD Unavailable Encounter Details Date Type Department Care Team (Late st Contact Info) Description 01/13/2021 Procedure Pass [facility] Scan - [facility] [address] [place] [address] Social History Tobacco Use Types Packs/Day Years [...] 9:37 AM JOEYT Lucie Vo RN * [place] Suicide Severity Rating Scale (Screener/Recent Self-Report) Question Answer Date of Assessment Author 1. Wish to be (Past 1 Month) No 021 9:37 AM EDLucie Gutierrez RN 2. Non-Specific Active Suici sherlyn Thoughts (Past 1 Month) No 01/13/2021 9:37 AM EDT Gilbert, Lucie L, RN 6. Suicidal Behavior (Lifetime) No 1 9:37 AM EDT Lucie Vo, RN documented as of this encounter Plan of Treatment Upcoming Encounters Date Type Department Care Team (Late st Contact Info) Description 05/27/2025 10:45 AM EST Office Visit [facility] [place] [address] [place] [address] Evy Hernandez MD, PhD [address] [place] [address] [email or web address] 08/24/2025 10:30 AM EDT Office Visit [facility] [address] [address] Nii Menchaca MD [address] [place] [address] [email or web address] documented as of this encounter Visit Diagnoses Not on filedocumented in this encounter Care Teams Completions Engineer Relationship Specialty Start Date End Date Justin Barnhart MD [address] [place] [address], [address] [place] [address] PCP - General Nephrology 02/06/18 02/19/24 Nii Menchaca MD [address] [place] [address] PCP - General Family Medicine 02/20/24 Nii Menchaca MD [address] [place] [address] Insurance Assigned Provider 09/13/24 documented as of this encounter Additional Source Comments The information contained in this document represents components of the legal health record. It is not the complete legal health record.[facility]
--- OUTSIDE RECORDS SUMMARY | 2025-02-24 14:37 | XMS_ITS | Clinical Summary ---
Author Organization [facility] Address [address] [facility] [address] [place] [address] Phone Care Team Providers Care Gas Engineer Name Role Phone Nii Menchaca MD Primary Care Provider [phone] Nii Menchaca MD Unavailable Allergies Active Allergy [...] Take 2,500 mcg by mouth daily. Active Medication-Free Text Liver support 3 per day Active Medication-Free Text Vizcarra oil (nigella stiva oil) 2 per day Active cholecalciferol, vitamin D3, (VITAMIN D3 ORAL) Take 2,000 Units by mouth. Active melatonin 5 mg Tab Take 10 mg by mouth nightly at bedtime. Active LACTASE ENZYME ORAL Take 375 mg by mouth. 3 per day before dairy Active dorzolamide-timol oL (COSOPT) 22.3-6.8 mg/mL ophthalmic solution Place 1 drop into each eye 2 (two) times a day. 05/05/20 24 Active ROCKLATAN 0.02-0.005 % Drop Place 1 drop into each eye nightly at bedtime. Active amLODIPine (NORVASC) 10 MG tabletIndications :Essential hypertension Take 1 tablet (10 mg total) by mouth every morning. 90 tablet 3 02/24/20 25 Active levothyroxine (SYNTHROID, LEVOTHROID) 150 MCG tabletIndications :Acquired hypothyroidism Take 1 tablet (150 mcg total) by mouth every morning. 90 tablet 3 02/24/20 25 Active levothyroxine (SYNTHROID, LEVOTHROID) 175 MCG tabletIndications :Acquired hypothyroidism Take 1 tablet (175 mcg total) by mouth every morning. 90 tablet 02/25/20 25 Active coenzyme Q10 100 mg capsule Take 100 mg by mouth daily. 025 Discontinued(No longer taking) turmeric root extract 500 mg Tab Take by mouth. 025 Discontinued CALCIUM ORAL Take by mouth. 025 Discontinued(No longer taking) levothyroxine (SYNTHROID, LEVOTHROID) 150 MCG tablet Take 1 tablet (150 mcg total) by mouth every morning. 90 tablet 3 06/11/19 25 025 Discontinued(Re order) amLODIPine (NORVASC) 10 MG tablet TAKE 1 TABLET IN THE MORNING 90 tablet 3 06/15/19 25 025 Discontinued(Re order) Active Problems Problem Noted Date Diagnosed Date [...] Encounters Date Type Department Care Team Description 02/23/2025 10:00 AM EDT Office Visit [facility] [address] [place] [address] Nii Menchaca MD Essential hypertension (Primary Dx); Impaired fasting glucose; Acquired hypothyroidism; Glaucoma of both eyes, unspecified glaucoma type; Bilateral impacted cerumen 02/03/2025 8:19 AM EDT - 02/03/2025 11:59 PM EDT Hospital Encounter [facility] [address] [place] [address] Nii Menchaca MD Discharge Disposition: Home or Self Care 02/02/2025 Transcribe Orders [facility] [address] [place] [address] Abner Sandoval MD Screening for prostate cancer (Primary Dx); Malignant neoplasm of prostate 01/14/2025 10:15 AM EDT Office Visit [facility] [address] [place] [address] Evy Hernandez MD, PhD Primary open angle glaucoma of left eye, severe stage (Primary Dx) from Last 3 Months Immunizations Immunization Administration Dates Next Due COVID-19 (Pre-04/01) Pfizer Vaccine, mRNA, PF ,07/14/2020 Influenza High-Dose Quadrivalent Preservative Fr ee IM 04/13/2022 Influenza High-Dose Trivalent Preservative Free IM 02/27/2019 Influenza Quadrivalent Adjuvanted Preservative F ree IM 04/18/2023,02/09/2020 Influenza Trivalent Adjuvanted Preservative free IM 02/20/2018,02/21/2017 Pneumococcal conjugate PCV21 12/15/2024 Pneumococcal polysaccharide PPSV23 05/23/2007 RSV Vaccine (monovalent, adjuvanted) 03/06/2024 Zoster recombinant 10/30/2024,08/12/2024 Social History Tobacco Use Types Packs/Day Years [...] Pulse 58 02/23/2025 10:21 AM EDT Temperature 36.6 C (97.9 F) 06/09/2024 12:13 PM EST Respiratory Rate 6 06/09/2024 10:26 AM EST Oxygen Saturation 96% 02/23/2025 10:21 AM EDT Inhaled Oxygen Concentration - - Weight 82.6 kg (182 lb) 08/21/2024 10:11 AM EDT Height 177.8 cm (5' 10 ) 08/21/2024 10:11 AM EDT Body Mass Index 26.11 08/21/2024 10:11 AM EDT Plan of Treatment Upcoming Encounters Date Type Department Care Team (Late st Contact Info) Description 05/27/2025 10:45 AM EST Office Visit [facility] [address] [place] [address] Evy Hernandez MD, PhD [address] [place] [address] [email or web address] 08/24/2025 10:30 AM EDT Office Visit [facility] [address] [place] [address] Nii Menchaca MD [address] [place] [address] [address] [place] [address] [email or web address] Health Maintenance Due Date Last Done Comments Adult Td,Tdap Booster 1935 INFLUENZA VACCINE (#1) 2025 , 04/13/2022, 02/09/2020, Additional history exists COVID-19 VACCINE ( season) 2025 04/07/2024, 03/11/2023, 03/07/2022, Additional history exists TSH LEVEL 02/03/2026 02/03/2025, 07/12, 05/26/2024, Additional history exists DEPRESSION SCREENING 02/23/2026 02/23/2025 RSV VACCINE Completed 03/06/2024 ZOSTER VACCINES Completed 10/30/2024, 08/12/2024 PNEUMOCOCCAL VACCINES (50+ years) Completed 12/15/2024, 05/23/2007 HEPATITIS A VACCINES Aged Out No long [...] this topic Medical Devices Implanted Type Area Hvac Mechanical Engineer Device Identifier Shelf Expiration Date Model / Serial / Lot Bilateral Knees Loop Polaris [id number] Stent Ureteral Standard Shaft/Straight Tip - [id number] Implanted:Qty: 1 on 01/14/2021 by Javan Reich MD at [facility] Right: Ureter [employer] 07/19/2023 [id number] / / [id number] [facility] 250mm Baerveldt Anterior Chamber Silicone Single Quadrant Drainage Tube - [id number] Implanted:Qty: 1 on 06/09/2024 by Evy Hernandez MD, PhD at [facility] Left: Eye [employer] 10/03/2025 [id number] / [id number] / Tutoplast Sclera 5x8mm - [id number] Implanted:Qty: 1 on 06/09/2024 by Evy Hernandez MD, PhD at [facility] Eye [facility] Left: Eye [employer] 07/10/2028 [id number] / [id number] / [id number] Procedures Procedure Name Priority Date/Time Associated Diagnosis [...] EDT) SODIUM 138 133 - 146 mmol/L [facility] POTASSIUM 4.2 3.3 - 5.1 mmol/L [facility] CHLORIDE 99 96 - 108 mmol/L [facility] CO2 26 21 - 35 mmol/L [facility] BUN 23(H) 6 - 19 mg/dL [facility] CREATININE 0.80 0.5 - 1.5 mg/dL [facility] GLUCOSE 119(H) 70 - 99 mg/dL [facility] ALBUMIN 4.5 3.9 - 4.8 g/dL [facility] TOTAL PROTEIN 8.2(H) 6.5 - 8.0 g/dL [facility] CALCIUM 9.6 8.4 - 10.3 mg/dL [facility] ALKALINE PHOSPHATASE 80 39 - 117 U/L [facility] TOTAL BILIRUBIN 0.7 0.0 - 1.2 mg/dL [facility] AST 23 0 - 37 U/L [facility] ALT 22 0 - 40 U/L [facility] GLOBULIN 3.7 1 - 4.8 g/dL [facility] EGFR 85 >59 mL/min/1.7 3m2 [facility] Comment:Estimated glomerular filtration rate calculated using the CKD-EPI refit equation. ANION GAP 17 10 - 20 mmol/L [facility] Blood 02/03/2025 8:19 AM EDT 02/03/2025 8:24 AM EDT us Nii Menchaca MD LAB BLOOD ORDERABLES Final Resul t [facility] [address] [place] [address] * (ABNORMAL) CBC and differential (02/03/2025 8:19 AM EDT) WBC 8.88 4.00 - 11.00 K/uL [facility] RBC 4.93 4.50 - 5.90 M/uL [facility] HGB 16.4 13.5 - 17.5 g/dL [facility] HCT 48.6 41.0 - 53.0 % [facility] PLT 264 150 - 450 K/uL [facility] MCV 98.6 80.0 - 100.0 fL [facility] MCH 33.3(H) 27.0 - 31.0 pg [facility] MCHC 33.7 32.0 - 36.0 g/dL [facility] RDW 13.2 11.5 - 14.5 % [facility] MPV 9.8 8.4 - 12.0 fL [facility] NRBC 0.00 0.00 /100 WBCs [facility] ABSOLUTE NRBC 0.00 0.00 K/uL [facility] DIFF METHOD Auto [facility] NEUTS 69.2 48.0 - 76.0 % [facility] LYMPHS 18.8 18.0 - 41.0 % [facility] MONOS 8.1 4.0 - 11.0 % [facility] EOS 2.7 0.0 - 5.0 % [facility] BASOS 1.0 0.0 - 1.5 % [facility] Granulocytes, immature (%) 0.2 0.0 - 0.9 % [facility] ABSOLUTE NEUTS 6.14 1.92 - 7.60 K/uL [facility] ABSOLUTE LYMPHS 1.67 0.72 - 4.10 K/uL [facility] ABSOLUTE MONOS 0.72 0.16 - 1.10 K/uL [facility] ABSOLUTE EOS 0.24 0.00 - 0.50 K/uL [facility] ABSOLUTE BASOS 0.09 0.00 - 0.15 K/uL [facility] Granulocytes, immature 0.02 0.00 - 0.09 K/uL [facility] Blood 02/03/2025 8:19 AM EDT 02/03/2025 8:24 AM EDT us Nii Menchaca MD LAB BLOOD ORDERABLES Final Resul t [facility] [address] * (ABNORMAL) TSH (02/03/2025 8:19 AM EDT) TSH 5.64(H) 0.27 - 4.20 uIU/mL [facility] Blood 02/03/2025 8:19 AM EDT 02/03/2025 8:24 AM EDT Nii Menchaca MD LAB BLOOD ORDERABLES Final Resul t Performing Organization Address [facility] Co de Phone Number [address] [address] * PSA (screening) (02/03/2025 8:19 AM EDT) Pathologist [facility] PSA 0.19 0 - 4.00 ng/mL [facility] Comment: Test Methodology Travis [email or web address] Patient results determined by assays using different manufacturers or methods may not be comparable. Blood 02/03/2025 8:19 AM EDT 02/03/2025 8:24 AM EDT Abner Sandoval MD LAB BLOOD ORDERABLES Final Result Performing Organization Address [facility] Co de Phone Number [address] [address] * (ABNORMAL) Hemoglobin A1c (02/03/2025 8:19 AM EDT) Pathologist [facility] HEMOGLOBIN A1C 6.1(H) 4.3 - 5.8 % [facility] Blood 02/03/2025 8:19 AM EDT 02/03/2025 8:24 AM EDT Nii Menchaca MD LAB BLOOD ORDERABLES Final Resul t Performing Organization Address [facility] Co de Phone Number [address] [address] * (ABNORMAL) Lipid panel (02/03/2025 8:19 AM EDT) HDL 52 mg/dL [facility] Comment: Interpretation <40 mg/dL: Low HDL cholesterol (major risk factor for CHD) Greater than or equal to 60 mg/dL: High HDL cholesterol ( negative risk factor for CHD) HDL - cholesterol is affected by a number of factors, e.g. smoking, excerise, hormones, sex and age. CHOLESTEROL 143 0 - 240 mg/dL [facility] TRIGLYCERIDES 68 30 - 160 mg/dL [facility] LDL 77 50 - 129 mg/dL [facility] Comment: LDL levels in terms of risk for coronary heart disease: <100 mg/dL: Optimal 100-129 mg/dL: Near or above optimal 130-159 mg/dL: Borderline high 160-189 mg/dL: High >190 mg/dL: Very High CARDIAC RISK RATIO 2.8(L) 3.4 - 5.0 C [facility] Blood 02/03/2025 8:19 AM EDT 02/03/2025 8:24 AM EDT us Nii Menchaca MD LAB BLOOD ORDERABLES Final Resul t [facility] [address] [place] [address] * OCT, Optic Nerve - OU - Both Eyes - (01/14/2025 10:59 AM EDT) Narrative HARMONY - 01/14/2025 10:59 AM EDT Right Eye Optic nerve head and nerve fiber layer: Abnormal inferior. Left Eye Optic nerve head and nerve fiber layer: Edema. us Evy Hernandez MD, PhD OPHTHALMOLOGY IMAGING Fin al Result MAHSA from Last 3 Months Insurance MEDICARE PART A & B [facility] MEDICARE ENHANCE SUPPLEMENT MEDICARE PART A & B [facility] MEDICARE ENHANCE SUPPLEMENT MEDICARE PART A & B [facility] MEDICARE ENHANCE SUPPLEMENT MEDICARE PART A & B [facility] MEDICARE ENHANCE SUPPLEMENT MEDICARE PART A & B [facility] MEDICARE ENHANCE SUPPLEMENT MEDICARE PART A & B [facility] MEDICARE ENHANCE SUPPLEMENT MEDICARE PART A & B [facility] MEDICARE ENHANCE SUPPLEMENT MEDICARE PART A & B [facility] MEDICARE ENHANCE SUPPLEMENT MEDICARE PART A & B [facility] MEDICARE ENHANCE SUPPLEMENT Advance Directives For more information, please contact: [phone] (9AM - 5PM [facility], Saturday-Saturday) Documents on File Type Date Recorded Patient Supervising Producer Expl anation Healthcare Proxy 06/11/2024 9:17 AM * Full Code (Latest Code Status on File) Date Activated Date Inactivated Comments 01/13/2021 4:45 PM Question Answer Comments Code Status Confirmed With: Patient Care Teams Gas Engineer Relationship Specialty Start Date End Date Nii Menchaca MD [address] [place] [address] 7 SAUL Romero [address] [email or web address] PCP - General Family Medicine 02/20/24 Nii Menchaca MD [address] [place] [address] [address] [place] [address] [email or web address] Insurance Assigned Provider 09/13/24 Additional Source Comments The information contained in this document represents components of the legal health record. It is not the complete legal health record.[facility]
--- OUTSIDE RECORDS SUMMARY | 2025-02-24 14:37 | XMS_ITS | Encounter Summary ---
Author Organization [facility] Address [address] [place] [address] Phone Care Team Providers Care Patrol Captain Name Role Phone Justin Barnhart MD Primary Care Provider [phone] Nii Menchaca MD Primary Care Provider [phone] Nii Menchaca MD Unavailable Encounter Details Date Type Department Care Team (Late st Contact Info) Description 01/14/2021 Procedure Pass OR Admitting Dept - Virtual Department [address] [place] [address] Social History Tobacco Use Types Packs/Day Years [...] 10:45 AM EST Office Visit [facility] [address] [place] [address] Evy Hernandez MD, PhD [address] [place] [address] [email or web address] 08/24/2025 10:30 AM EDT Office Visit [facility] [address] [address] Nii Menchaca MD [address] [place] [address] [address] [place] [address] [email or web address] documented as of this encounter Visit Diagnoses Not on filedocumented in this encounter Care Teams Patrol Captain Relationship Specialty Start Date End Date Justin Barnhart MD [address] [place] [address], [address] [place] [address] [email or web address] PCP - General Nephrology 02/06/18 02/19/24 Nii Menchaca MD [address] [place] [address] [address] [place] [address] PCP - General Family Medicine 02/20/24 Nii Menchaca MD [address] [place] [address] [address] [place] [address] Insurance Assigned Provider 09/13/24 documented as of this encounter Additional Source Comments The information contained in this document represents components of the legal health record. It is not the complete legal health record.[facility]
--- OUTSIDE RECORDS SUMMARY | 2025-02-24 14:37 | XMS_ITS | Encounter Summary ---
Author Organization [facility] Address [address] [place] [address] [place] [address] Phone Care Team Providers Care Logistic Manager Name Role Phone Justin Barnhart MD Primary Care Provider [phone] Nii Menchaca MD Primary Care Provider [phone] Nii Menchaca MD Unavailable Encounter Details Date Type Department Care Team (Latest Contact Info) Description 11/03/2019 Transcribe Orders [facility] [address] [place] [address] Justin Barnhart MD 51 [facility], [address] [place] [address] [email or web address] Hypothyroidism, unspecified type (Primary Dx); Essential hypertension, [...] 10:45 AM EST Office Visit [facility] [address] [id number] Evy Hernandez MD, PhD [address] [place] [address] [email or web address] 08/24/2025 10:30 AM EDT Office Visit [facility] [address] [place] [address] Nii Menchaca MD 234 [facility], [address] [place] [address] [email or web address] documented as of this encounter Results * Free T4 (05/19/2020 10:04 AM EST) Pathologist [facility] FREE T4 1.6 0.9 - 1.7 ng/dL [facility] Blood 05/19/2020 10:0 4 AM EST 05/19/2020 10:08 AM EST Justin Barnhart MD LAB BLOOD ORDERABLES Final Re sult [address] [address] * TSH (05/19/2020 10:04 AM EST) Pathologist [facility] TSH 1.78 0.27 - 4.20 uIU/mL [facility] Blood 05/19/2020 10:0 4 AM EST 05/19/2020 10:08 AM EST Justin Barnhart MD LAB BLOOD ORDERABLES Final Re sult Performing Organization Address City/[facility]/ZIP Co de Phone Number [address] [address] * (ABNORMAL) CBC and differential (05/19/2020 10:04 AM EST) Pathologist [facility] WBC 8.95 4.00 - 11.00 K/uL [facility] Comment:Note Reference Range updates to all CBC and Differential results. RBC 5.18 3.90 - 5.69 M/uL [facility] HGB 17.2 12.4 - 17.3 g/dL [facility] Comment:Note updated Referen ce Ranges for all CBC and Differential results. HCT 51.1(H) 37.0 - 51.0 % [facility] PLT 307 140 - 430 K/uL [facility] MCV 98.6(H) 78.0 - 97.0 fL [facility] MCH 33.2(H) 25.0 - 33.0 pg [facility] MCHC 33.7 32.0 - 36.0 g/dL [facility] RDW 13.0 11.0 - 15.0 % [facility] MPV 10.0 8.4 - 12.8 fl [facility] NRBC 0.00 0 /100 WBCs [facility] ABSOLUTE NRBC 0.00 0 K/uL [facility] DIFF METHOD Auto [facility] NEUTS 68.9 43.0 - 75.0 % [facility] LYMPHS 18.5 18.2 - 47.4 % [facility] MONOS 8.3 4.00 - 11.00 % [facility] EOS 3.0 0.0 - 8.0 % [facility] BASOS 1.1 0.0 - 2.0 % [facility] Granulocytes, immature (%) 0.2 0.0 - 0.9 % [facility] ABSOLUTE NEUTS 6.16 1.80 - 7.70 K/uL [facility] ABSOLUTE LYMPHS 1.66 1.00 - 3.10 K/uL [facility] ABSOLUTE MONOS 0.74 0.20 - 0.80 K/uL [facility] ABSOLUTE EOS 0.27 0.00 - 0.80 K/uL [facility] ABSOLUTE BASOS 0.10(H) 0.00 - 0.09 K/uL [facility] Granulocytes, immature 0.02 0.00 - 0.05 K/uL [facility] Blood 05/19/2020 10:0 4 AM EST 05/19/2020 10:08 AM EST us Justin Barnhart MD LAB BLOOD ORDERABLES Final Re sult [facility] [address] [place] [address] * Albumin (05/19/2020 10:04 AM EST) ALBUMIN 4.7 3.9 - 4.8 g/dL [facility] Blood 05/19/2020 10:0 4 AM EST 05/19/2020 10:08 AM EST Justin Barnhart MD LAB BLOOD ORDERABLES Final Re sult Performing Organization Address City/[facility]/ZIP Co de Phone Number [address] [address] * Magnesium (05/19/2020 10:04 AM EST) MAGNESIUM 2.0 1.6 - 2.6 mg/dL [facility] Blood 05/19/2020 10:0 4 AM EST 05/19/2020 10:08 AM EST Justin Barnhart MD LAB BLOOD ORDERABLES Final Re sult Performing Organization Address [facility]/ZIP Co de Phone Number [address] [address] * Phosphorus (05/19/2020 10:04 AM EST) PHOSPHORUS 3.0 2.7 - 4.5 mg/dL [facility] Blood 05/19/2020 10:0 4 AM EST 05/19/2020 10:08 AM EST Justin Barnhart MD LAB BLOOD ORDERABLES Final Re sult Performing Organization Address [facility] Co de Phone Number [address] [address] * (ABNORMAL) Basic metabolic panel (05/19/2020 10:04 AM EST) SODIUM 141 133 - 146 mmol/L [facility] CHLORIDE 103 96 - 108 mmol/L [facility] POTASSIUM 4.1 3.3 - 5.1 mmol/L [facility] CO2 25 21 - 35 mmol/L [facility] BUN 17 6 - 19 mg/dL [facility] CREATININE 0.90 0.5 - 1.5 mg/dL [facility] GLUCOSE 132(H) 70 - 99 mg/dL [facility] CALCIUM 9.5 8.4 - 10.3 mg/dL [facility] EGFR 78 >59 mL/min/1.7 3m2 [facility] Comment:Estimated glomerular filtration rate calculated using the CKD-EPI equation. ANION GAP 17 10 - 20 mmol/L [facility] Blood 05/19/2020 10:0 4 AM EST 05/19/2020 10:08 AM EST Justin Barnhart MD LAB BLOOD ORDERABLES Final Re sult Performing Organization Address [facility] Co de Phone Number [address] [address] * Free T4 (11/03/2019 10:04 AM EDT) FREE T4 1.5 0.9 - 1.7 ng/dL [facility] Blood 11/03/2019 10:0 4 AM EDT 11/03/2019 10:29 AM EDT Justin Barnhart MD LAB BLOOD ORDERABLES Final Re sult Performing Organization Address [facility] de Phone Number [address] [address] * (ABNORMAL) TSH (11/03/2019 10:04 AM EDT) TSH 4.26(H) 0.27 - 4.20 uIU/mL [facility] Blood 11/03/2019 10:0 4 AM EDT 11/03/2019 10:29 AM EDT Justin Barnhart MD LAB BLOOD ORDERABLES Final Re sult Performing Organization Address [facility] Co de Phone Number [address] [address] * (ABNORMAL) CBC and differential (11/03/2019 10:04 AM EDT) WBC 7.45 4.00 - 11.00 K/uL [facility] Comment:Note Reference Range updates to all CBC and Differential results. RBC 5.06 3.90 - 5.69 M/uL [facility] HGB 16.9 12.4 - 17.3 g/dL [facility] Comment:Note updated Referen ce Ranges for all CBC and Differential results. HCT 48.7 37.0 - 51.0 % [facility] PLT 297 140 - 430 K/uL [facility] MCV 96.2 78.0 - 97.0 fL [facility] MCH 33.4(H) 25.0 - 33.0 pg [facility] MCHC 34.7 32.0 - 36.0 g/dL [facility] RDW 13.3 11.0 - 15.0 % [facility] MPV 9.7 8.4 - 12.8 fl [facility] NRBC 0.00 0 /100 WBCs [facility] ABSOLUTE NRBC 0.00 0 K/uL [facility] DIFF METHOD Auto [facility] NEUTS 64.5 43.0 - 75.0 % [facility] LYMPHS 21.9 18.2 - 47.4 % [facility] MONOS 9.4 4.00 - 11.00 % [facility] EOS 2.6 0.0 - 8.0 % [facility] BASOS 1.3 0.0 - 2.0 % [facility] Granulocytes, immature (%) 0.3 0.0 - 0.9 % [facility] ABSOLUTE NEUTS 4.81 1.80 - 7.70 K/uL [facility] ABSOLUTE LYMPHS 1.63 1.00 - 3.10 K/uL [facility] ABSOLUTE MONOS 0.70 0.20 - 0.80 K/uL [facility] ABSOLUTE EOS 0.19 0.00 - 0.80 K/uL [facility] ABSOLUTE BASOS 0.10(H) 0.00 - 0.09 K/uL [facility] Granulocytes, immature 0.02 0.00 - 0.05 K/uL [facility] Blood 11/03/2019 10:0 4 AM EDT 11/03/2019 10:29 AM EDT Justin Barnhart MD LAB BLOOD ORDERABLES Final Re sult Performing Organization Address [facility]/ZIP Co de Phone Number [address] [address] * Albumin (11/03/2019 10:04 AM EDT) ALBUMIN 4.6 3.9 - 4.8 g/dL [facility] Blood 11/03/2019 10:0 4 AM EDT 11/03/2019 10:29 AM EDT Justin Barnhart MD LAB BLOOD ORDERABLES Final Re sult Performing Organization Address [facility] Co de Phone Number [address] [address] * Magnesium (11/03/2019 10:04 AM EDT) MAGNESIUM 2.0 1.6 - 2.6 mg/dL [facility] Blood 11/03/2019 10:0 4 AM EDT 11/03/2019 10:29 AM EDT Justin Barnhart MD LAB BLOOD ORDERABLES Final Re sult Performing Organization Address [facility] Co de Phone Number [address] [address] * (ABNORMAL) Basic metabolic panel (11/03/2019 10:04 AM EDT) SODIUM 140 133 - 146 mmol/L [facility] CHLORIDE 102 96 - 108 mmol/L [facility] POTASSIUM 4.0 3.3 - 5.1 mmol/L [facility] CO2 25 21 - 35 mmol/L [facility] BUN 17 6 - 19 mg/dL [facility] CREATININE 0.80 0.5 - 1.5 mg/dL [facility] GLUCOSE 159(H) 70 - 99 mg/dL [facility] CALCIUM 9.2 8.4 - 10.3 mg/dL [facility] EGFR 83 >59 mL/min/1.7 3m2 [facility] Comment:If patient is black, multiply result by 1.159. Estimated glomerular filtration rate calculated using the CKD-EPI equation. ANION GAP 17 10 - 20 mmol/L [facility] Blood 11/03/2019 10:0 4 AM EDT 11/03/2019 10:29 AM EDT us Justin Barnhart MD LAB BLOOD ORDERABLES Final Re sult [facility] [address] [place] [address] documented in this encounter Visit Diagnoses Diagnosis Hypothyroidism, unspecified type- Primary Essential hypertension, malignant Personal history of urinary calculi documented in this encounter Care Teams Logistic Manager Relationship Specialty Start Date End Date Justin Barnhart MD 51 [facility], [address] [place] [address] [email or web address] PCP - General Nephrology 02/06/18 02/19/24 Nii Menchaca MD [address] [place] [address] 7 [place] [address] PCP - General Family Medicine 02/20/24 Nii Menchaca MD [address] [place] [address] 7 [place] [address] Insurance Assigned Provider 09/13/24 documented as of this encounter Additional Source Comments The information contained in this document represents components of the legal health record. It is not the complete legal health record.[facility]
--- OUTSIDE RECORDS SUMMARY | 2025-02-24 14:39 | XMS_ITS | Encounter Summary ---
Author Organization [facility] Address [address] [place] [address] Phone Care Team Providers Care Credit Intern Name Role Phone Justin Barnhart MD Primary Care Provider [phone] Nii Menchaca MD Primary Care Provider Nii Menchaca MD Unavailable Encounter Details Date Type Department Care Team (Latest Contact Info) Description 08/29/2021 Transcribe Orders Virtual Department [address] [place] [address] Javan Reich MD [address] [place] [address], [address] [place] [address] [email or web address] Calculus of kidney (Primary Dx); Cyst [...] 10:45 AM EST Office Visit [facility] [address] [address] Evy Hernandez MD, PhD [address] [place] [address] [email or web address] 08/24/2025 10:30 AM EDT Office Visit [facility] [address] [place] [address] Nii Menchaca MD [address] [facility], [address] [place] [address] [email or web address] documented as of this encounter Results * [...] pathology apparent. Chronic bladder diverticulum. POS - [id number] Narrative 09/08/2021 12:25 PM EDT COMPARISON: 01/13/2021 [...] normal limits overall size with the right .5 x 6.0 cm and left 12.6 x [...] pathology apparent. Chronic bladder diverticulum. POS - [id number] us Javan Reich MD [facility] RENAL Final Result documented in this encounter Visit Diagnoses Diagnosis Calculus of kidney- Primary Cyst of kidney, acquired Acquired cyst of kidney Calculus of kidney Cyst of kidney, acquired Acquired cyst of kidney Calculus of kidney Cyst of kidney, acquired Acquired cyst of kidney documented in this encounter Care Teams Credit Intern Relationship Specialty Start Date End Date Justin Barnhart MD [address] [place] [address], [address] [place] [address] [email or web address] PCP - General Nephrology 02/06/18 02/19/24 Nii Menchaca MD [address] [place] [address], [facility] 7 [place] [address] PCP - General Family Medicine 02/20/24 Nii Menchaca MD [address] [place] [address], [facility] 7 [place] [address] [email or web address] Insurance Assigned Provider 09/13/24 documented as of this encounter Additional Source Comments The information contained in this document represents components of the legal health record. It is not the complete legal health record.[facility]
--- OUTSIDE RECORDS SUMMARY | 2025-02-24 14:39 | XMS_ITS | Encounter Summary ---
Author Organization [facility] Address [address] [place] [address] Phone Care Team Providers Care Mounter Saxophones Name Role Phone Justin Barnhart MD Primary Care Provider [phone] Nii Menchaca MD Primary Care Provider [phone] Nii Menchaca MD Unavailable Encounter Details Date Type Department Care Team (Latest Contact Info) Description 05/13/2018 Transcribe Orders [facility] [address] 2[address] [place] [address] Dieter Nagy MD 10 [facility] 2 [place] [address] Dysphagia, unspecified type (Primary Dx); Abnormal barium [...] 10:45 AM EST Office Visit [facility] [place] [address] [place] [address] Evy Hernandez MD, PhD [address] [place] [address] [email or web address] 08/24/2025 10:30 AM EDT Office Visit [facility] [address] [place] [address] Nii Menchaca MD 234 [facility], [address] [place] [address] [email or web address] documented as of this encounter Results * Comprehensive metabolic panel (05/13/2018 11:35 AM EST) SODIUM 144 133 - 146 mmol/L [facility] POTASSIUM 4.1 3.3 - 5.1 mmol/L [facility] CHLORIDE 106 96 - 108 mmol/L [facility] CO2 23 21 - 35 mmol/L [facility] BUN 15 6 - 19 mg/dL [facility] CREATININE 0.70 0.5 - 1.5 mg/dL [facility] GLUCOSE 99 70 - 99 mg/dL [facility] ALBUMIN 4.6 3.9 - 4.8 g/dL [facility] TOTAL PROTEIN 7.6 6.5 - 8.0 g/dL [facility] CALCIUM 9.2 8.4 - 10.3 mg/dL [facility] ALKALINE PHOSPHATASE 76 39 - 117 U/L [facility] TOTAL BILIRUBIN 0.4 0.0 - 1.2 mg/dL [facility] AST 30 0 - 37 U/L [facility] ALT 37 0 - 40 U/L [facility] GLOBULIN 3.0 1 - 4.8 g/dL [facility] EGFR 88 >59 mL/min/1.7 3m2 [facility] Comment:If patient is black, multiply result by 1.159. Estimated glomerular filtration rate calculated using the CKD-EPI equation. ANION GAP 19 10 - 20 mmol/L [facility] Blood 05/13/2018 11:3 5 AM EST 05/13/2018 11:39 AM EST us Dieter Nagy MD LAB BLOOD ORDERABLES Final Result [facility] [address] [place] [address] * (ABNORMAL) CBC (05/13/2018 11:35 AM EST) WBC 7.29 3.40 - 11.20 K/uL [facility] RBC 4.70 4.50 - 5.50 M/uL [facility] HGB 15.1 13.0 - 17.0 g/dL [facility] HCT 45.2 40.0 - 51.0 % [facility] PLT 345 130 - 400 K/uL [facility] MCV 96.2 79.0 - 98.0 fL [facility] MCH 32.1 27.0 - 34.8 pg [facility] MCHC 33.4 31.5 - 36.0 g/dL [facility] RDW 14.0 10.8 - 14.6 % [facility] MPV 9.3(L) 9.4 - 12.4 fl [facility] NRBC 0.00 0.00 /100 WBCs [facility] ABSOLUTE NRBC 0.00 0.00 K/uL [facility] Blood 05/13/2018 11:3 5 AM EST 05/13/2018 11:39 AM EST us Dieter Nagy MD LAB BLOOD ORDERABLES Final Result Performing Organization Address City/State/[facility] Co de Phone Number [facility] [address] [place] [address] documented in this encounter Visit Diagnoses Diagnosis Dysphagia, unspecified type- Primary Abnormal barium swallow documented in this encounter Care Teams Mounter Saxophones Relationship Specialty Start Date End Date Justin Barnhart MD [address] [place] [address], [address] [place] [address] PCP - General Nephrology 02/06/18 02/19/24 Nii Menchaca MD [address] [place] [address], [address] [place] [address] PCP - General Family Medicine 02/20/24 Nii Menchaca MD [address] [place] [address], [address] [place] [address] [email or web address] Insurance Assigned Provider 09/13/24 documented as of this encounter Additional Source Comments The information contained in this document represents components of the legal health record. It is not the complete legal health record.[facility]
--- OUTSIDE RECORDS SUMMARY | 2025-02-24 14:40 | XMS_ITS | Encounter Summary ---
Author Organization [facility] Address [address] [address] Phone Care Team Providers Care Production Administrator Name Role Phone Justin Barnhart MD Primary Care Provider [phone] Nii Menchaca MD Primary Care Provider [phone] Nii Menchaca MD Unavailable Encounter Details Date Type Department Care Team (Late st Contact Info) Description 02/06/2018 Ancillary Orders [facility], X-Ray - [address] [address] Abner Sandoval MD 100 [facility] 240 [place] [address] Nephrolithiasis Social History Tobacco Use Types Packs/Day [...] 10:45 AM EST Office Visit [facility] [place] [address] [place] [address] Evy Hernandez MD, PhD [address] [place] [address] [email or web address] 08/24/2025 10:30 AM EDT Office Visit [facility] [address] [place] [address] Nii Menchaca MD 234 [facility], [address] [place] [address] [email or web address] documented as of this encounter Results * [...] kidney documented in this encounter Care Teams Production Administrator Relationship Specialty Start Date End Date Justin Barnhart MD [address] [place] [address], [address] [place] [address] [email or web address] PCP - General Nephrology 02/06/18 02/19/24 Nii Menchaca MD [address] [place] [address] 7 [place] [address] [email or web address] PCP - General Family Medicine 02/20/24 Nii Menchaca MD [address] [place] [address], [facility] 7 [place] [address] [email or web address] Insurance Assigned Provider 09/13/24 documented as of this encounter Additional Source Comments The information contained in this document represents components of the legal health record. It is not the complete legal health record.[facility]
--- OUTSIDE RECORDS SUMMARY | 2025-02-24 14:40 | XMS_ITS | Encounter Summary ---
Author Organization [facility] Address [address] [place] [address] Phone Care Team Providers Care Machine Folder Name Role Phone Nii Menchaca MD Primary Care Provider [phone] Nii Menchaca MD Unavailable Encounter Details Date Type Department Care Team (Late st Contact Info) Description 06/09/2024 Procedure Pass [facility] PERIOP DEPT [address] [place] [address] Social History Tobacco Use Types Packs/Day Years Used Date Smoking Tobacco: Never Smokeless Tobacco: Never Alcohol Use Standard Drinks/Week Comments Yes 0 (1 standard drink = 0.6 oz pur e alcohol) One [facility] or Family Care Answer Date [...] 10:45 AM EST Office Visit [facility] [place] [address] [place] [address] Evy Hernandez MD, PhD [address] [place] [address] [email or web address] 08/24/2025 10:30 AM EDT Office Visit [facility] [address] [place] [address] Nii Menchaca MD [address] [place] [address], [address] [place] [address] [email or web address] documented as of this encounter Visit Diagnoses Not on filedocumented in this encounter Additional Health Concerns Assessment Noted Time PHQ-2 Depression Total Score: 0 02/20/20 24 8:12 AM EDT documented as of this encounter Care Teams Machine Folder Relationship Specialty Start Date End Date Nii Menchaca MD 234 [facility] [address] [place] [address] [email or web address] PCP - General Family Medicine 02/20/24 Nii Menchaca MD 234 [facility] [address] [place] [address] [email or web address] Insurance Assigned Provider 09/13/24 documented as of this encounter Additional Source Comments The information contained in this document represents components of the legal health record. It is not the complete legal health record.[facility]
--- OUTSIDE RECORDS SUMMARY | 2025-02-24 14:40 | XMS_ITS | Encounter Summary ---
Author Organization [facility] Address [address] [place] [address] [place] [address] Phone Care Team Providers Care Landfill Gas Technician Name Role Phone Justin Barnhart MD Primary Care Provider [phone] Nii Menchaca MD Primary Care Provider [phone] Nii Menchaca MD Unavailable Encounter Details Date Type Department Care Team (Late st Contact Info) Description 05/15/2018 Procedure Pass [facility]oscopy Admitting Dept Virtual Department 30 [place] [address] Social History Tobacco Use Types Packs/Day Years [...] 10:45 AM EST Office Visit [facility] [place] 800 [place] [address] Evy Hernandez MD, PhD 800 [place] [address] [email or web address] 08/24/2025 10:30 AM EDT Office Visit [facility] [address] [place] [address] Nii Menchaca MD [address] [place] [address], [address] [place] [address] [email or web address] documented as of this encounter Visit Diagnoses Not on filedocumented in this encounter Care Teams Landfill Gas Technician Relationship Specialty Start Date End Date Justin Barnhart MD 51 [facility], [address] [place] [address] [email or web address] PCP - General Nephrology 02/06/18 02/19/24 Nii Menchaca MD 234 [facility] [address] [place] [address] PCP - General Family Medicine 02/20/24 Nii Menchaca MD 234 [facility], [facility] [address] [place] [address] [email or web address] Insurance Assigned Provider 09/13/24 documented as of this encounter Additional Source Comments The information contained in this document represents components of the legal health record. It is not the complete legal health record.[facility]
--- OUTSIDE RECORDS SUMMARY | 2025-02-24 14:40 | XMS_ITS | Encounter Summary ---
Author Organization [facility] Address [address] [place] [address] Phone Care Team Providers Care Plumbers And Top Helpers Name Role Phone Justin Barnhart MD Primary Care Provider [phone] Nii Menchaca MD Primary Care Provider [phone] Nii Menchaca MD Unavailable Encounter Details Date Type Department Care Team (Late st Contact Info) Description 02/17/2018 Ancillary Orders Virtual Department 30 [place] [address] Justin Barnhart MD [address] [place] [address], 3 [place] [address] [email or web address] Dysphagia, unspecified type; Hiatal hernia Social History [...] 10:45 AM EST Office Visit [facility] [address] [address] Evy Hernandez MD, PhD [address] [place] [address] [email or web address] 08/24/2025 10:30 AM EDT Office Visit [facility] [address] [place] [address] Nii Menchaca MD 234 [facility], [address] [place] [address] [email or web address] documented as of this encounter Results * [...] POS - [id number] Justin Barnhart MD IMG LA MISC Final Result documented in this encounter Visit Diagnoses Diagnosis Dysphagia, unspecified type Hiatal hernia 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 Dysphagia, unspecified type Hiatal hernia 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 documented in this encounter Care Teams Plumbers And Top Helpers Relationship Specialty Start Date End Date Justin Barnhart MD [address] [place] [address], [address] [place] [address] [email or web address] PCP - General Nephrology 02/06/18 02/19/24 Nii Menchaca MD [address] [place] [address] 7 [place] [address] PCP - General Family Medicine 02/20/24 Nii Menchaca MD [address] [place] [address] 7 [place] [address] [email or web address] Insurance Assigned Provider 09/13/24 documented as of this encounter Additional Source Comments The information contained in this document represents components of the legal health record. It is not the complete legal health record.[facility]
--- OUTSIDE RECORDS SUMMARY | 2025-02-24 14:40 | XMS_ITS | Encounter Summary ---
Author Organization [facility], Address [address] [place] [address] Phone Care Team Providers Care Field Geologist Name Role Phone Nii Menchaca Primary Care Provider [phone] Encounter Details Date Type Department Care Team (Late st Contact Info) Description 11/21/2023 Documentation Only [facility], - [address] [address] Brenda Soriano [address] [place] [address] Social History Tobacco Use Types Packs/Day [...] on filedocumented in this encounter Care Teams Field Geologist Relationship Specialty Start Date End Date Nii Menchaca [address] [place] [address] PCP - General Family Medicine 06/04/24 documented as of this encounter
--- OUTSIDE RECORDS SUMMARY | 2025-02-24 14:40 | XMS_ITS | Encounter Summary ---
Author Organization [facility] Address [address] [place] [address] Phone Care Team Providers Care Wet Roller Name Role Phone Nii Menchaca Primary Care Provider [phone] Encounter Details Date Type Department Care Team (Late st Contact Info) Description 06/04/2024 Documentation Only [facility], [address] [place] [address] Brenda Soriano [address] [place] [phone] Social History Tobacco Use Types Packs/Day Years [...] on filedocumented in this encounter Care Teams Wet Roller Relationship Specialty Start Date End Date Nii Menchaca [address] [place] [address] PCP - General Family Medicine 06/04/24 documented as of this encounter
--- OUTSIDE RECORDS SUMMARY | 2025-02-24 14:40 | XMS_ITS | Encounter Summary ---
Author Organization [facility] Address [address] [facility] [address] [place] [address] Phone Care Team Providers Care Varnish Filterer Name Role Phone Justin Barnhart MD Primary Care Provider [phone] Nii Menchaca MD Primary Care Provider [phone] Nii Menchaca MD Unavailable Encounter Details Date Type Department Care Team (Late st Contact Info) Description 02/06/2018 Transcribe Orders [facility] [address] [place] [address] Abner Sandoval MD [address] [place] [address] [address] [place] [address] Malignant neoplasm of prostate (Primary Dx) Social [...] 10:45 AM EST Office Visit [facility] [address] [address] Evy Hernandez MD, PhD [address] [place] [address] [email or web address] 08/24/2025 10:30 AM EDT Office Visit [facility] [address] [place] [address] Nii Menchaca MD 234 [facility], [facility] 7 [place] [address] [email or web address] documented as of this encounter Results * PSA (screening) (02/06/2018 9:09 AM EDT) PSA 0.20 0 - 4.00 ng/mL [facility] Blood 02/06/2018 9:09 AM EDT 02/06/2018 9:15 AM EDT us Abner Sandoval MD LAB BLOOD ORDERABLES Final Result [facility] [address] [place] [address] documented in this encounter Visit Diagnoses Diagnosis Malignant neoplasm of prostate- Primary documented in this encounter Care Teams Varnish Filterer Relationship Specialty Start Date End Date Justin Barnhart MD [address] [facility], [address] [place] [address] [email or web address] PCP - General Nephrology 02/06/18 02/19/24 Nii Menchaca MD [address] [place] [address], [facility] 7 [place] [address] [email or web address] PCP - General Family Medicine 02/20/24 Nii Menchaca MD [address] [place] [address], [facility] [address] [place] [address] [email or web address] Insurance Assigned Provider 09/13/24 documented as of this encounter Additional Source Comments The information contained in this document represents components of the legal health record. It is not the complete legal health record.[facility]
--- OUTSIDE RECORDS SUMMARY | 2025-02-24 14:40 | XMS_ITS | Encounter Summary ---
Author Organization [facility] Address [address] [place] [address] Phone Care Team Providers Care Billet Recorder Name Role Phone Unknown, Unknown Primary Care Provider Justin Reed MD Primary Care Provider [phone] Nii Menchaca MD Primary Care Provider [phone] Nii Mnechaca MD Unavailable Encounter Details Date Type Department Care Team (Latest Contact Info) Description 05/16/2017 Transcribe Orders [facility] [address] [place] [address] Jusitn Barnhart MD [address] [place] [address], [address] [place], [place] [address] [email or web address] Essential hypertension, benign (Primary Dx); Myxedema heart [...] 10:45 AM EST Office Visit [facility] [address] [address] Evy Hernandez MD, PhD [address] [place] [address] [email or web address] 08/24/2025 10:30 AM EDT Office Visit [facility] [address] [place] [address] Nii Menchaca MD 234 [facility], [address] [place] [address] [email or web address] documented as of this encounter Results * Free T4 (11/14/2017 9:57 AM EDT) FREE T4 1.3 0.9 - 1.7 ng/dL [facility] Blood 11/14/2017 9:57 AM EDT 11/14/2017 10:11 AM EDT us Justin Barnhart MD LAB BLOOD ORDERABLES Final Re sult [address] [address] * TSH (11/14/2017 9:57 AM EDT) TSH 1.38 0.27 - 4.20 uIU/mL [facility] Blood 11/14/2017 9:57 AM EDT 11/14/2017 10:11 AM EDT us Justin Barnhart MD LAB BLOOD ORDERABLES Final Re sult [address] [address] * Magnesium (11/14/2017 9:57 AM EDT) MAGNESIUM 2.1 1.6 - 2.6 mg/dL [facility] Blood 11/14/2017 9:57 AM EDT 11/14/2017 10:11 AM EDT us Justin Barnhart MD LAB BLOOD ORDERABLES Final Re sult Performing Organization Address City/[facility]/ZIP Co de Phone Number [address] [address] * (ABNORMAL) Basic metabolic panel (11/14/2017 9:57 AM EDT) SODIUM 145 133 - 146 mmol/L [facility] CHLORIDE 105 96 - 108 mmol/L [facility] POTASSIUM 4.1 3.3 - 5.1 mmol/L [facility] CO2 30 21 - 35 mmol/L [facility] BUN 18 6 - 19 mg/dL [facility] CREATININE 0.80 0.5 - 1.5 mg/dL [facility] GLUCOSE 174(H) 70 - 99 mg/dL [facility] CALCIUM 8.8 8.4 - 10.3 mg/dL [facility] EGFR 84 >59 mL/min/1.7 3m2 [facility] Comment:If patient is black, multiply result by 1.159. The eGFR calculation has changed from the MDRD equation to the CKD-EPI equation as of August 13, 2017. ANION GAP 14 10 - 20 mmol/L [facility] Blood 11/14/2017 9:57 AM EDT 11/14/2017 10:11 AM EDT Justin Barnhart MD LAB BLOOD ORDERABLES Final Re sult Performing Organization Address [facility] Co de Phone Number [address] [address] * Free T4 (05/16/2017 10:09 AM EST) FREE T4 1.3 0.9 - 1.7 ng/dL [facility] Blood 05/16/2017 10:0 9 AM EST 05/16/2017 10:16 AM EST Justin Barnhart MD LAB BLOOD ORDERABLES Final Re sult Performing Organization Address City/[facility]/ZIP Co de Phone Number [address] [address] * TSH (05/16/2017 10:09 AM EST) TSH 2.79 0.27 - 4.20 uIU/mL [facility] Blood 05/16/2017 10:0 9 AM EST 05/16/2017 10:16 AM EST Justin Barnhart MD LAB BLOOD ORDERABLES Final Re sult Performing Organization Address [facility]/ZIP Co de Phone Number [address] [address] * Magnesium (05/16/2017 10:09 AM EST) Pathologist [facility] MAGNESIUM 2.2 1.6 - 2.6 mg/dL [facility] Blood 05/16/2017 10:0 9 AM EST 05/16/2017 10:16 AM EST Justin Barnhart MD LAB BLOOD ORDERABLES Final Re sult Performing Organization Address City/[facility] Co de Phone Number [address] [address] * (ABNORMAL) Basic metabolic panel (05/16/2017 10:09 AM EST) Pathologist [facility] SODIUM 142 133 - 146 mmol/L [facility] CHLORIDE 102 96 - 108 mmol/L [facility] POTASSIUM 4.3 3.3 - 5.1 mmol/L [facility] CO2 28 21 - 35 mmol/L [facility] BUN 16 6 - 19 mg/dL [facility] CREATININE 0.70 0.5 - 1.5 mg/dL [facility] GLUCOSE 100(H) 70 - 99 mg/dL [facility] CALCIUM 9.3 8.4 - 10.3 mg/dL [facility] EGFR >60 mL/min/1.7 3m2 [facility] Comment:Abnormal if <60. If patient is -[place], multiply the result by 1.21. ANION GAP 16 10 - 20 mmol/L [facility] Blood 05/16/2017 10:0 9 AM EST 05/16/2017 10:16 AM EST us Justin Barnhart MD LAB BLOOD ORDERABLES Final Re sult Performing Organization Address City/[facility]/ZIP Co de Phone Number [address] [address] * (ABNORMAL) Lipid panel (05/16/2017 10:09 AM EST) HDL 48 mg/dL [facility] Comment: Interpretation: Risk Level Males Decreased >45 mg/dL Average 40-45 mg/dL Increased <40 mg/dL CHOLESTEROL 139 0 - 240 mg/dL [facility] TRIGLYCERIDES 109 30 - 160 mg/dL [facility] LDL 69 50 - 129 mg/dL [facility] Comment: LDL levels in terms of risk for coronary heart disease: <100 mg/dL: Optimal 100-129 mg/dL: Near or above optimal 130-159 mg/dL: Borderline high 160-189 mg/dL: High >190 mg/dL: Very High CARDIAC RISK RATIO 2.9(L) 3.4 - 5.0 C [facility] Blood 05/16/2017 10:0 9 AM EST 05/16/2017 10:16 AM EST us Justin Barnhart MD LAB BLOOD ORDERABLES Final Re sult Performing Organization Address [facility] Co de Phone Number [address] [address] documented in this encounter Visit Diagnoses Diagnosis Essential hypertension, 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 Personal history of urinary calculi documented in this encounter Care Teams Billet Recorder Relationship Specialty Start Date End Date Unknown, Unknown, MD PCP - General 05/16/17 02/05/18 Justin Barnhart MD [address] [place] [address], [address] [place] [address] [email or web address] PCP - General Nephrology 02/06/18 02/19/24 Nii Menchaca MD [address] [place] [address], [address] [place] [address] [email or web address] PCP - General Family Medicine 02/20/24 Nii Menchaca MD [address] [place] [address], [address] [place] [address] [email or web address] Insurance Assigned Provider 09/13/24 documented as of this encounter Additional Source Comments The information contained in this document represents components of the legal health record. It is not the complete legal health record.[facility]
--- OUTSIDE RECORDS SUMMARY | 2025-02-24 14:40 | XMS_ITS | Encounter Summary ---
Author Organization [facility], Address [address] [place] [address] Phone Care Team Providers Care Direct Service Worker Name Role Phone Nii Menchaca Primary Care Provider [phone] Encounter Details Date Type Department Care Team (Late st Contact Info) Description 11/06/2022 Documentation Only [facility], - [address] [address] Justin Barnhart MD Social History [...] on filedocumented in this encounter Care Teams Direct Service Worker Relationship Specialty Start Date End Date Nii Menchaca [address] [place] [address] PCP - General Family Medicine 06/04/24 documented as of this encounter
--- OUTSIDE RECORDS SUMMARY | 2025-02-24 14:40 | XMS_ITS | Encounter Summary ---
Author Organization [facility] Address [address] [place] [address] Phone Care Team Providers Care Spring Former Name Role Phone Nii Menchaca MD Primary Care Provider [phone] Nii Mecnhaca MD Unavailable Encounter Details Date Type Department Care Team ([facility] st Contact Info) Description 05/01/2024 Ophth Exam [facility] [address] [place] [address] Mena Lezama MD [address] [place] [address] [email or web address] Social History Tobacco Use Types Packs/Day [...] 05/01/2024 9:14 AM Hemal Melton RN * [place]ero Suicide Severity Rating Scale (Screener/Recent Self-Report) Question [...] 10:45 AM EST Office Visit [facility] [place] [address] [place] [address] Evy Hernandez MD, PhD [address] [place] [address] [email or web address] 08/24/2025 10:30 AM EDT Office Visit [facility] [address] [place] [address] Nii Menchaca MD [address] [place] [address] [email or web address] documented as of this encounter Visit Diagnoses Not on filedocumented in this encounter Additional Health Concerns Assessment Noted Time PHQ-2 Depression Total Score: 0 02/20/20 8:12 AM EDT documented as of this encounter Care Teams Spring Former Relationship Specialty Start Date End Date Nii Menchaca MD [address] [place] [address] [email or web address] PCP - General Family Medicine 02/20/24 Nii Menchaca MD [address] [place] [address] [email or web address] Insurance Assigned Provider 09/13/24 documented as of this encounter Additional Source Comments The information contained in this document represents components of the legal health record. It is not the complete legal health record.[facility]
== END 2025-02-24 11:23 | disposition home or self-care (01) ==
LOC: HO.HMGAL 11:20
PROVIDERS: Visit Provider Registered Nurse Emergency
DX: J30.89 Other allergic rhinitis (principal)
CPT/HCPCS: 95117; 95165

== ENCOUNTER 2025-03-24 09:16 | Outpatient (AMB) | payer MEDICARE, OTHER, SELFPAY ==
--- OUTSIDE RECORDS SUMMARY | 2025-03-24 10:20 | XMS_ITS | Encounter Summary ---
Author Organization [facility] Address [address] [place] [address] [place] [address] Phone Care Team Providers Care Spanish Linguist Name Role Phone Justin Barnhart MD Primary Care Provider [phone] Nii Menchaca MD Primary Care Provider [phone] Nii Menchaca MD Unavailable Encounter Details Date Type Department Care Team (Latest Contact Info) Description 11/03/2019 Transcribe Orders [facility] [address] [place] [address] Justin Barnhart MD [address] [facility], [address] [place] [address] [email or web address] Hypothyroidism, unspecified type (Primary Dx); Essential hypertension, [...] 10:45 AM EST Office Visit [facility] [address] [id number] Evy Hernandez MD, PhD [address] [place] [address] [email or web address] 08/24/2025 10:30 AM EDT Office Visit [facility] [address] [place] [address] Nii Menchaca MD [address] [facility], [address] [place] [address] [email or web address] documented as of this encounter Results * Free T4 (05/19/2020 10:04 AM EST) Pathologist [facility] FREE T4 1.6 0.9 - 1.7 ng/dL [facility] Blood 05/19/2020 10:0 4 AM EST 05/19/2020 10:08 AM EST Justin Barnhart MD LAB BLOOD ORDERABLES Final Re sult [address] [address] * TSH (05/19/2020 10:04 AM EST) Pathologist [facility] TSH 1.78 0.27 - 4.20 uIU/mL [facility] Blood 05/19/2020 10:0 4 AM EST 05/19/2020 10:08 AM EST Justin Barnhart MD LAB BLOOD ORDERABLES Final Re sult Performing Organization Address City/[facility]/ZIP Co de Phone Number [address] [address] * (ABNORMAL) CBC and differential (05/19/2020 10:04 AM EST) Pathologist [facility] WBC 8.95 4.00 - 11.00 K/uL [facility] Comment:Note Reference Range updates to all CBC and Differential results. RBC 5.18 3.90 - 5.69 M/uL [facility] HGB 17.2 12.4 - 17.3 g/dL [facility] Comment:Note updated Referen ce Ranges for all CBC and Differential results. HCT 51.1(H) 37.0 - 51.0 % [facility] PLT 307 140 - 430 K/uL [facility] MCV 98.6(H) 78.0 - 97.0 fL [facility] MCH 33.2(H) 25.0 - 33.0 pg [facility] MCHC 33.7 32.0 - 36.0 g/dL [facility] RDW 13.0 11.0 - 15.0 % [facility] MPV 10.0 8.4 - 12.8 fl [facility] NRBC 0.00 0 /100 WBCs [facility] ABSOLUTE NRBC 0.00 0 K/uL [facility] DIFF METHOD Auto [facility] NEUTS 68.9 43.0 - 75.0 % [facility] LYMPHS 18.5 18.2 - 47.4 % [facility] MONOS 8.3 4.00 - 11.00 % [facility] EOS 3.0 0.0 - 8.0 % [facility] BASOS 1.1 0.0 - 2.0 % [facility] Granulocytes, immature (%) 0.2 0.0 - 0.9 % [facility] ABSOLUTE NEUTS 6.16 1.80 - 7.70 K/uL [facility] ABSOLUTE LYMPHS 1.66 1.00 - 3.10 K/uL [facility] ABSOLUTE MONOS 0.74 0.20 - 0.80 K/uL [facility] ABSOLUTE EOS 0.27 0.00 - 0.80 K/uL [facility] ABSOLUTE BASOS 0.10(H) 0.00 - 0.09 K/uL [facility] Granulocytes, immature 0.02 0.00 - 0.05 K/uL [facility] Blood 05/19/2020 10:0 4 AM EST 05/19/2020 10:08 AM EST us Justin Barnhart MD LAB BLOOD ORDERABLES Final Re sult [facility] [address] [place] [address] * Albumin (05/19/2020 10:04 AM EST) ALBUMIN 4.7 3.9 - 4.8 g/dL [facility] Blood 05/19/2020 10:0 4 AM EST 05/19/2020 10:08 AM EST Justin Barnhart MD LAB BLOOD ORDERABLES Final Re sult Performing Organization Address City/[facility]/ZIP Co de Phone Number [address] [address] * Magnesium (05/19/2020 10:04 AM EST) MAGNESIUM 2.0 1.6 - 2.6 mg/dL [facility] Blood 05/19/2020 10:0 4 AM EST 05/19/2020 10:08 AM EST Justin Barnhart MD LAB BLOOD ORDERABLES Final Re sult Performing Organization Address [facility]/ZIP Co de Phone Number [address] [address] * Phosphorus (05/19/2020 10:04 AM EST) PHOSPHORUS 3.0 2.7 - 4.5 mg/dL [facility] Blood 05/19/2020 10:0 4 AM EST 05/19/2020 10:08 AM EST Justin Barnhart MD LAB BLOOD ORDERABLES Final Re sult Performing Organization Address [facility]/[place]UST Co de Phone Number [address] [address] * (ABNORMAL) Basic metabolic panel (05/19/2020 10:04 AM EST) SODIUM 141 133 - 146 mmol/L [facility] CHLORIDE 103 96 - 108 mmol/L [facility] POTASSIUM 4.1 3.3 - 5.1 mmol/L [facility] CO2 25 21 - 35 mmol/L [facility] BUN 17 6 - 19 mg/dL [facility] CREATININE 0.90 0.5 - 1.5 mg/dL [facility] GLUCOSE 132(H) 70 - 99 mg/dL [facility] CALCIUM 9.5 8.4 - 10.3 mg/dL [facility] EGFR 78 >59 mL/min/1.7 3m2 [facility] Comment:Estimated glomerular filtration rate calculated using the CKD-EPI equation. ANION GAP 17 10 - 20 mmol/L [facility] Blood 05/19/2020 10:0 4 AM EST 05/19/2020 10:08 AM EST Justin Barnhart MD LAB BLOOD ORDERABLES Final Re sult Performing Organization Address [facility]/[place] Co de Phone Number [address] [address] * Free T4 (11/03/2019 10:04 AM EDT) FREE T4 1.5 0.9 - 1.7 ng/dL [facility] Blood 11/03/2019 10:0 4 AM EDT 11/03/2019 10:29 AM EDT Justin Barnhart MD LAB BLOOD ORDERABLES Final Re sult Performing Organization Address [facility] de Phone Number [address] [address] * (ABNORMAL) TSH (11/03/2019 10:04 AM EDT) TSH 4.26(H) 0.27 - 4.20 uIU/mL [facility] Blood 11/03/2019 10:0 4 AM EDT 11/03/2019 10:29 AM EDT Justin Barnhart MD LAB BLOOD ORDERABLES Final Re sult Performing Organization Address [facility] Co de Phone Number [address] [address] * (ABNORMAL) CBC and differential (11/03/2019 10:04 AM EDT) WBC 7.45 4.00 - 11.00 K/uL [facility] Comment:Note Reference Range updates to all CBC and Differential results. RBC 5.06 3.90 - 5.69 M/uL [facility] HGB 16.9 12.4 - 17.3 g/dL [facility] Comment:Note updated Referen ce Ranges for all CBC and Differential results. HCT 48.7 37.0 - 51.0 % [facility] PLT 297 140 - 430 K/uL [facility] MCV 96.2 78.0 - 97.0 fL [facility] MCH 33.4(H) 25.0 - 33.0 pg [facility] MCHC 34.7 32.0 - 36.0 g/dL [facility] RDW 13.3 11.0 - 15.0 % [facility] MPV 9.7 8.4 - 12.8 fl [facility] NRBC 0.00 0 /100 WBCs [facility] ABSOLUTE NRBC 0.00 0 K/uL [facility] DIFF METHOD Auto [facility] NEUTS 64.5 43.0 - 75.0 % [facility] LYMPHS 21.9 18.2 - 47.4 % [facility] MONOS 9.4 4.00 - 11.00 % [facility] EOS 2.6 0.0 - 8.0 % [facility] BASOS 1.3 0.0 - 2.0 % [facility] Granulocytes, immature (%) 0.3 0.0 - 0.9 % [facility] ABSOLUTE NEUTS 4.81 1.80 - 7.70 K/uL [facility] ABSOLUTE LYMPHS 1.63 1.00 - 3.10 K/uL [facility] ABSOLUTE MONOS 0.70 0.20 - 0.80 K/uL [facility] ABSOLUTE EOS 0.19 0.00 - 0.80 K/uL [facility] ABSOLUTE BASOS 0.10(H) 0.00 - 0.09 K/uL [facility] Granulocytes, immature 0.02 0.00 - 0.05 K/uL [facility] Blood 11/03/2019 10:0 4 AM EDT 11/03/2019 10:29 AM EDT Justin Barnhart MD LAB BLOOD ORDERABLES Final Re sult Performing Organization Address [facility]/ZIP Co de Phone Number [address] [address] * Albumin (11/03/2019 10:04 AM EDT) ALBUMIN 4.6 3.9 - 4.8 g/dL [facility] Blood 11/03/2019 10:0 4 AM EDT 11/03/2019 10:29 AM EDT Justin Barnhart MD LAB BLOOD ORDERABLES Final Re sult Performing Organization Address [facility]/[place] Co de Phone Number [address] [address] * Magnesium (11/03/2019 10:04 AM EDT) MAGNESIUM 2.0 1.6 - 2.6 mg/dL [facility] Blood 11/03/2019 10:0 4 AM EDT 11/03/2019 10:29 AM EDT Justin Barnhart MD LAB BLOOD ORDERABLES Final Re sult Performing Organization Address [facility]/[place] Co de Phone Number [address] [address] * (ABNORMAL) Basic metabolic panel (11/03/2019 10:04 AM EDT) SODIUM 140 133 - 146 mmol/L [facility] CHLORIDE 102 96 - 108 mmol/L [facility] POTASSIUM 4.0 3.3 - 5.1 mmol/L [facility] CO2 25 21 - 35 mmol/L [facility] BUN 17 6 - 19 mg/dL [facility] CREATININE 0.80 0.5 - 1.5 mg/dL [facility] GLUCOSE 159(H) 70 - 99 mg/dL [facility] CALCIUM 9.2 8.4 - 10.3 mg/dL [facility] EGFR 83 >59 mL/min/1.7 3m2 [facility] Comment:If patient is black, multiply result by 1.159. Estimated glomerular filtration rate calculated using the CKD-EPI equation. ANION GAP 17 10 - 20 mmol/L [facility] Blood 11/03/2019 10:0 4 AM EDT 11/03/2019 10:29 AM EDT us Justin Barnhart MD LAB BLOOD ORDERABLES Final Re sult [facility] [address] [place] [address] documented in this encounter Visit Diagnoses Diagnosis Hypothyroidism, unspecified type- Primary Essential hypertension, malignant Personal history of urinary calculi documented in this encounter Care Teams Spanish Linguist Relationship Specialty Start Date End Date Justin Barnhart MD [address] [facility], [address] [place] [address] [email or web address] PCP - General Nephrology 02/06/18 02/19/24 Nii Menchaca MD [address] [place] [address] [address] [place] [address] PCP - General Family Medicine 02/20/24 Nii Menchaca MD [address] [place] [address] 7 [place] [address] Insurance Assigned Provider 09/13/24 documented as of this encounter Additional Source Comments The information contained in this document represents components of the legal health record. It is not the complete legal health record.[facility]
--- OUTSIDE RECORDS SUMMARY | 2025-03-24 10:20 | XMS_ITS | Encounter Summary ---
Author Organization [facility] Address [facility] [employer] [facility] [address] [place] [address] Phone Care Team Providers Care Customer Success Representative Name Role Phone Justni Barnhart MD Primary Care Provider [phone] Nii Menchaca MD Primary Care Provider [phone] Nii Menchaca MD Unavailable Encounter Details Date Type Department Care Team (Late st Contact Info) Description 02/22/2021 Procedure Pass [place] Admitting Dept - Virtual Department [address] [place] [address] Social History Tobacco Use Types Packs/Day Years [...] 10:45 AM EST Office Visit [facility] [place] [address] [place] [address] Evy Hernandez MD, PhD [address] [place] [address] [email or web address] 08/24/2025 10:30 AM EDT Office Visit [facility] [address] [place] [address] Nii Menchaca MD [address] [place] [address], [address] [place] [address] [email or web address] documented as of this encounter Visit Diagnoses Not on filedocumented in this encounter Care Teams Customer Success Representative Relationship Specialty Start Date End Date Justin Barnhart MD [address] [place] [address], [address] [place] [address] [email or web address] PCP - General Nephrology 02/06/18 02/19/24 Nii Menchaca MD [address] [place] [address], [facility] [address] [place] [address] PCP - General Family Medicine 02/20/24 Nii Menchaca MD [address] [place] [address], [address] [place] [address] [email or web address] Insurance Assigned Provider 09/13/24 documented as of this encounter Additional Source Comments The information contained in this document represents components of the legal health record. It is not the complete legal health record.[facility]
--- OUTSIDE RECORDS SUMMARY | 2025-03-24 10:20 | XMS_ITS | Encounter Summary ---
Author Organization [facility] Address [facility] [employer] [facility] [address] [place] [address] Phone Care Team Providers Care Christmas Bell Ringer Name Role Phone Justin Barnhart MD Primary Care Provider [phone] Nii Menchaca MD Primary Care Provider [phone] Nii Menchaca MD Unavailable Encounter Details Date Type Department Care Team (Late st Contact Info) Description 01/13/2021 Procedure Pass [facility], Ct Scan - [facility] [address] [place] [address] Social History Tobacco Use Types Packs/Day Years [...] 9:37 AM JOEYT Lucie Vo RN * [place] Suicide Severity Rating Scale (Screener/Recent Self-Report) Question [...] 10:45 AM EST Office Visit [facility] [place] [address] [place] [address] Evy Hernandez MD, PhD [address] [place] [address] [email or web address] 08/24/2025 10:30 AM EDT Office Visit [facility] [address] [address] Nii Menchaca MD [address] [place] [phone] [email or web address] documented as of this encounter Visit Diagnoses Not on filedocumented in this encounter Care Teams Christmas Bell Ringer Relationship Specialty Start Date End Date Justin Barnhart MD [address] [place] [address], [address] [place] [address] PCP - General Nephrology 02/06/18 02/19/24 Nii Menchaca MD [address] [place] [address] PCP - General Family Medicine 02/20/24 Nii Menchaca MD [address] [place] [address] Insurance Assigned Provider 09/13/24 documented as of this encounter Additional Source Comments The information contained in this document represents components of the legal health record. It is not the complete legal health record.[facility]
--- OUTSIDE RECORDS SUMMARY | 2025-03-24 10:20 | XMS_ITS | Clinical Summary ---
Author Organization [facility] Address [address] [facility] [address] [place] [address] Phone Care Team Providers Care Special Forces Senior Sergeant Name Role Phone Nii Menchaca MD Primary Care Provider [phone] Nii Menchaca MD Unavailable Allergies Active Allergy [...] Encounters Date Type Department Care Team Description 03/23/2025 Telephone Formerly [facility] Physicians -[facility] TEAM [address] [place] [address] Nii Menchaca MD Care Coordination ([facility] Virtual AWV Outreach ) 02/23/2025 10:00 AM EDT Office Visit [facility] Medicine [address] [place] [address] Nii Menchaca MD Essential hypertension (Primary Dx); Impaired fasting glucose; Acquired hypothyroidism; Glaucoma of both eyes, unspecified glaucoma type; Bilateral impacted cerumen 02/03/2025 8:19 AM EDT - 02/03/2025 11:59 PM EDT Hospital Encounter [facility] [address] [place] [address] Nii Menchaca MD Discharge Disposition: Home or Self Care 02/02/2025 Transcribe Orders [facility] [address] [place] [address] Abner Sandoval MD Screening for prostate cancer (Primary Dx); Malignant neoplasm of prostate 01/14/2025 10:15 AM EDT Office Visit [facility] [place] [address] [place] [address] Evy Hernandez MD, PhD Primary open angle [...] 10:45 AM EST Office Visit [facility] [place] [address] [place] [address] Evy Hernandez MD, PhD [address] [place] [address] [email or web address] 08/24/2025 10:30 AM EDT Office Visit [facility] [address] [address] Nii Menchaca MD [address] [place] [address], [address] [place] [address] [email or web address] Health Maintenance Due Date Last Done Comments Adult Td,Tdap Booster 1935 INFLUENZA VACCINE (#1) 2025 , 04/13/2022, 02/09/2020, Additional history exists COVID-19 VACCINE ( season) 2025 04/07/2024, 03/11/2023, 03/07/2022, Additional history exists TSH LEVEL 02/03/2026 02/03/2025, 02/2 01/2025, 05/26/2024, Additional history exists DEPRESSION SCREENING 02/23/2026 [...] this topic Medical Devices Implanted Type Area Velvet Cutter Device Identifier Shelf Expiration Date Model / Serial / Lot Bilateral Knees Loop Polaris [id number] Stent Ureteral Standard Shaft/Straight Tip - [id number] Implanted:Qty: 1 on 01/14/2021 by Javan Reich MD at [facility] Right: Ureter [employer] 07/19/2023 [id number] / / [id number] [facility] [employer] 250mm Baerveldt Anterior Chamber Silicone Single Quadrant Drainage Tube - [id number] Implanted:Qty: 1 on 06/09/2024 by Evy Hernandez MD, PhD at [facility] Left: Eye [employer] 10/03/2025 [id number] / [id number] / Tutoplast Sclera 5x8mm - [id number] Implanted:Qty: 1 on 06/09/2024 by Evy Hernandez MD, PhD at [facility] Left: Eye [employer] 07/10/2028 [id number] / [id number] / [id number] Procedures Procedure Name Priority Date/Time Associated Diagnosis [...] EDT) SODIUM 138 133 - 146 mmol/L [facility] POTASSIUM 4.2 3.3 - 5.1 mmol/L [facility] CHLORIDE 99 96 - 108 mmol/L [facility] CO2 26 21 - 35 mmol/L [facility] BUN 23(H) 6 - 19 mg/dL [facility] CREATININE 0.80 0.5 - 1.5 mg/dL [facility] GLUCOSE 119(H) 70 - 99 mg/dL [facility] ALBUMIN 4.5 3.9 - 4.8 g/dL [facility] TOTAL PROTEIN 8.2(H) 6.5 - 8.0 g/dL [facility] CALCIUM 9.6 8.4 - 10.3 mg/dL [facility] ALKALINE PHOSPHATASE 80 39 - 117 U/L [facility] TOTAL BILIRUBIN 0.7 0.0 - 1.2 mg/dL [facility] AST 23 0 - 37 U/L [facility] ALT 22 0 - 40 U/L [facility] GLOBULIN 3.7 1 - 4.8 g/dL [facility] EGFR 85 >59 mL/min/1.7 3m2 [facility] Comment:Estimated glomerular filtration rate calculated using the CKD-EPI refit equation. ANION GAP 17 10 - 20 mmol/L [facility] Blood 02/03/2025 8:19 AM EDT 02/03/2025 8:24 AM EDT us Nii Menchaca MD LAB BLOOD ORDERABLES Final Resul t [facility] [address] [place] [address] * (ABNORMAL) CBC and differential (02/03/2025 8:19 AM EDT) WBC 8.88 4.00 - 11.00 K/uL [facility] RBC 4.93 4.50 - 5.90 M/uL [facility] HGB 16.4 13.5 - 17.5 g/dL [facility] HCT 48.6 41.0 - 53.0 % [facility] PLT 264 150 - 450 K/uL [facility] MCV 98.6 80.0 - 100.0 fL [facility] MCH 33.3(H) 27.0 - 31.0 pg [facility] MCHC 33.7 32.0 - 36.0 g/dL [facility] RDW 13.2 11.5 - 14.5 % [facility] MPV 9.8 8.4 - 12.0 fL [facility] NRBC 0.00 0.00 /100 WBCs [facility] ABSOLUTE NRBC 0.00 0.00 K/uL [facility] DIFF METHOD Auto [facility] NEUTS 69.2 48.0 - 76.0 % [facility] LYMPHS 18.8 18.0 - 41.0 % [facility] MONOS 8.1 4.0 - 11.0 % [facility] EOS 2.7 0.0 - 5.0 % [facility] BASOS 1.0 0.0 - 1.5 % [facility] Granulocytes, immature (%) 0.2 0.0 - 0.9 % [facility] ABSOLUTE NEUTS 6.14 1.92 - 7.60 K/uL [facility] ABSOLUTE LYMPHS 1.67 0.72 - 4.10 K/uL [facility] ABSOLUTE MONOS 0.72 0.16 - 1.10 K/uL [facility] ABSOLUTE EOS 0.24 0.00 - 0.50 K/uL [facility] ABSOLUTE BASOS 0.09 0.00 - 0.15 K/uL [facility] Granulocytes, immature 0.02 0.00 - 0.09 K/uL [facility] Blood 02/03/2025 8:19 AM EDT 02/03/2025 8:24 AM EDT us Nii Menchaca MD LAB BLOOD ORDERABLES Final Resul t Performing Organization Address [facility] Co de Phone Number [address] [address] * (ABNORMAL) TSH (02/03/2025 8:19 AM EDT) TSH 5.64(H) 0.27 - 4.20 uIU/mL [facility] Blood 02/03/2025 8:19 AM EDT 02/03/2025 8:24 AM EDT Nii Menchaca MD LAB BLOOD ORDERABLES Final Resul t Performing Organization Address [facility] Co de Phone Number [address] [address] * PSA (screening) (02/03/2025 8:19 AM EDT) PSA 0.19 0 - 4.00 ng/mL [facility] Comment: Test Methodology Travis [email or web address] Patient results determined by assays using different manufacturers or methods may not be comparable. Blood 02/03/2025 8:19 AM EDT 02/03/2025 8:24 AM EDT Abner Sandoval MD LAB BLOOD ORDERABLES Final Result Performing Organization Address [facility] Co de Phone Number [address] [address] * (ABNORMAL) Hemoglobin A1c (02/03/2025 8:19 AM EDT) HEMOGLOBIN A1C 6.1(H) 4.3 - 5.8 % [facility] Blood 02/03/2025 8:19 AM EDT 02/03/2025 8:24 AM EDT us Nii Menchaca MD LAB BLOOD ORDERABLES Final Resul t Performing Organization Address [facility] Co de Phone Number [address] [address] * (ABNORMAL) Lipid panel (02/03/2025 8:19 AM EDT) HDL 52 mg/dL [facility] Comment: Interpretation <40 mg/dL: Low HDL cholesterol (major risk factor for CHD) Greater than or equal to 60 mg/dL: High HDL cholesterol ( negative risk factor for CHD) HDL - cholesterol is affected by a number of factors, e.g. smoking, excerise, hormones, sex and age. CHOLESTEROL 143 0 - 240 mg/dL [facility] TRIGLYCERIDES 68 30 - 160 mg/dL [facility] LDL 77 50 - 129 mg/dL [facility] Comment: LDL levels in terms of risk for coronary heart disease: <100 mg/dL: Optimal 100-129 mg/dL: Near or above optimal 130-159 mg/dL: Borderline high 160-189 mg/dL: High >190 mg/dL: Very High CARDIAC RISK RATIO 2.8(L) 3.4 - 5.0 C [facility] Blood 02/03/2025 8:19 AM EDT 02/03/2025 8:24 AM EDT us Nii Menchaca MD LAB BLOOD ORDERABLES Final Resul t Performing Organization Address [facility] Co de Phone Number [address] [address] * OCT, Optic Nerve - OU - Both Eyes - (01/14/2025 10:59 AM EDT) Narrative HARMONY - 01/14/2025 10:59 AM EDT Right Eye Optic nerve head and nerve fiber layer: Abnormal inferior. Left Eye Optic nerve head and nerve fiber layer: Edema. us Evy Hernandez MD, PhD OPHTHALMOLOGY IMAGING Fin al Result Performing Organization Address [facility] Co de Phone Number HARMONY from Last 3 Months Insurance MEDICARE PART A & B [facility] MEDICARE ENHANCE SUPPLEMENT MEDICARE PART A & B [facility] MEDICARE ENHANCE SUPPLEMENT [facility] Address: [address] [place] [id number] MEDICARE PART A & B [facility] MEDICARE ENHANCE SUPPLEMENT MEDICARE PART A & B [facility] MEDICARE ENHANCE SUPPLEMENT [facility] Address: [facility] [id number] [place] [id number] MEDICARE PART A & B [facility] MEDICARE ENHANCE SUPPLEMENT MEDICARE PART A & B [facility] MEDICARE ENHANCE SUPPLEMENT MEDICARE PART A & B [facility] MEDICARE ENHANCE SUPPLEMENT MEDICARE PART A & B [facility] MEDICARE ENHANCE SUPPLEMENT MEDICARE PART A & B [facility] MEDICARE ENHANCE SUPPLEMENT Advance Directives For more information, please contact: [phone] (9AM - 5PM [facility], Saturday-Saturday) Documents on File Type Date Recorded Patient Au Pair Expl anation Healthcare Proxy 06/11/2024 9:17 AM * Full Code (Latest Code Status on File) Date Activated Date Inactivated Comments 01/13/2021 4:45 PM Question Answer Comments Code Status Confirmed With: Patient Care Teams Special Forces Senior Sergeant Relationship Specialty Start Date End Date Nii Menchaca MD [address] [facility] [address] [place] [address] [email or web address] PCP - General Family Medicine 02/20/24 Nii Menchaca MD [address] [facility] [address] [place] [address] [email or web address] Insurance Assigned Provider 09/13/24 Additional Source Comments The information contained in this document represents components of the legal health record. It is not the complete legal health record.[facility]
--- OUTSIDE RECORDS SUMMARY | 2025-03-24 10:20 | XMS_ITS | Encounter Summary ---
Author Organization [facility] Address [address] [place] [address] Phone Care Team Providers Care Public Policy Mediator Name Role Phone Justin Barnhart MD Primary Care Provider [phone] Nii Menchaca MD Primary Care Provider [phone] Nii Menchaca MD Unavailable Encounter Details Date Type Department Care Team (Latest Contact Info) Description 05/09/2021 Transcribe Orders [facility] [address] [place] [address] Justin Barnhart MD [address] [facility], [address] [place] [address] [email or web address] Hypothyroidism, unspecified [...] 10:45 AM EST Office Visit [facility] [address] [address] Evy Hernandez MD, PhD [address] [place] [address] [email or web address] 08/24/2025 10:30 AM EDT Office Visit [facility] [address] [place] [address] Nii Menchaca MD 234 [facility], [address] [place] [address] documented as of this encounter Results * TSH with reflex (05/09/2021 10:18 AM EST) TSH 3.96 0.27 - 4.20 uIU/mL [facility] Blood 05/09/2021 10:1 8 AM EST 05/09/2021 10:34 AM EST Justin Barnhart MD LAB BLOOD ORDERABLES Final Re sult [facility] [address] [place] [address] * (ABNORMAL) Lipid panel (05/09/2021 10:18 AM EST) HDL 45 mg/dL [facility] Comment: Interpretation <40 mg/dL: Low HDL cholesterol (major risk factor for CHD) Greater than or equal to 60 mg/dL: High HDL cholesterol ( negative risk factor for CHD) HDL - cholesterol is affected by a number of factors, e.g. smoking, excerise, hormones, sex and age. CHOLESTEROL 141 0 - 240 mg/dL [facility] TRIGLYCERIDES 143 30 - 160 mg/dL [facility] LDL 67 50 - 129 mg/dL [facility] Comment: LDL levels in terms of risk for coronary heart disease: <100 mg/dL: Optimal 100-129 mg/dL: Near or above optimal 130-159 mg/dL: Borderline high 160-189 mg/dL: High >190 mg/dL: Very High CARDIAC RISK RATIO 3.1(L) 3.4 - 5.0 C [facility] Blood 05/09/2021 10:1 8 AM EST 05/09/2021 10:34 AM EST us Justin Barnhart MD LAB BLOOD ORDERABLES Final Re sult Performing Organization Address [facility] Co de Phone Number [address] [address] * (ABNORMAL) Renal panel (05/09/2021 10:18 AM EST) SODIUM 142 133 - 146 mmol/L [facility] POTASSIUM 4.1 3.3 - 5.1 mmol/L [facility] CHLORIDE 104 96 - 108 mmol/L [facility] CO2 26 21 - 35 mmol/L [facility] GLUCOSE 128(H) 70 - 99 mg/dL [facility] BUN 27(H) 6 - 19 mg/dL [facility] CREATININE 0.90 0.5 - 1.5 mg/dL [facility] CALCIUM 9.0 8.4 - 10.3 mg/dL [facility] PHOSPHORUS 3.1 2.7 - 4.5 mg/dL [facility] ALBUMIN 4.5 3.9 - 4.8 g/dL [facility] EGFR 78 >59 mL/min/1.7 3m2 [facility] Comment:Estimated glomerular filtration rate calculated using the CKD-EPI equation. ANION GAP 16 10 - 20 mmol/L [facility] Blood 05/09/2021 10:1 8 AM EST 05/09/2021 10:34 AM EST us Justin Barnhart MD LAB BLOOD ORDERABLES Final Re sult Performing Organization Address City/[facility]/ZIP Co de Phone Number [address] [address] documented in this encounter Visit Diagnoses Diagnosis Hypothyroidism, unspecified type- Primary Essential hypertension, malignant documented in this encounter Care Teams Public Policy Mediator Relationship Specialty Start Date End Date Justin Barnhart MD [address] [place] [address], [address] [place] [address] [email or web address] PCP - General Nephrology 02/06/18 02/19/24 Nii Menchaca MD [address] [facility] [address] [place] [address] [email or web address] PCP - General Family Medicine 02/20/24 Nii Menchaca MD [address] [facility] [address] [place] [address] [email or web address] Insurance Assigned Provider 09/13/24 documented as of this encounter Additional Source Comments The information contained in this document represents components of the legal health record. It is not the complete legal health record.[facility]
--- OUTSIDE RECORDS SUMMARY | 2025-03-24 10:20 | XMS_ITS | Encounter Summary ---
Author Organization [facility] Address [address] [place] [address] [place] [address] Phone Care Team Providers Care Ruby Rails Developer Name Role Phone Justin Barnhart MD Primary Care Provider [phone] Nii Menchaca MD Primary Care Provider [phone] Nii Menchaca MD Unavailable Encounter Details Date Type Department Care Team (Latest Contact Info) Description 05/05/2019 Transcribe Orders [facility] [address] [place] [address] Justin Barnhart MD [address] [facility], [address] [place] [address] [email or web address] Essential hypertension, malignant (Primary Dx); Myxedema heart [...] 10:45 AM EST Office Visit [facility] [address] [id number] Evy Hernandez MD, PhD [address] [place] [address] [email or web address] 08/24/2025 10:30 AM EDT Office Visit [facility] [address] [place] [address] Nii Menchaca MD 234 [facility], [address] [place] [address] [email or web address] documented as of this encounter Results * Phosphorus (11/03/2019 10:04 AM EDT) PHOSPHORUS 2.9 2.7 - 4.5 mg/dL [facility] Blood 11/03/2019 10:0 4 AM EDT 11/03/2019 10:29 AM EDT Justin Barnhart MD LAB BLOOD ORDERABLES Final Re sult [address] [address] * Free T4 (05/05/2019 11:02 AM EST) FREE T4 1.4 0.9 - 1.7 ng/dL [facility] Blood 05/05/2019 11:0 2 AM EST 05/05/2019 12:14 PM EST Justin Barnhart MD LAB BLOOD ORDERABLES Final Re sult [address] [address] * TSH (05/05/2019 11:02 AM EST) TSH 1.98 0.27 - 4.20 uIU/mL [facility] Blood 05/05/2019 11:0 2 AM EST 05/05/2019 12:14 PM EST Justin Barnhart MD LAB BLOOD ORDERABLES Final Re sult Performing Organization Address City/[facility]/ZIP Co de Phone Number [address] [address] * Albumin (05/05/2019 11:02 AM EST) ALBUMIN 4.5 3.9 - 4.8 g/dL [facility] Blood 05/05/2019 11:0 2 AM EST 05/05/2019 12:14 PM EST Justin Barnhart MD LAB BLOOD ORDERABLES Final Re sult Performing Organization Address [facility] Co de Phone Number [address] [address] * Magnesium (05/05/2019 11:02 AM EST) MAGNESIUM 2.1 1.6 - 2.6 mg/dL [facility] Blood 05/05/2019 11:0 2 AM EST 05/05/2019 12:14 PM EST Justin Barnhart MD LAB BLOOD ORDERABLES Final Re sult Performing Organization Address [facility] Co de Phone Number [address] [address] * Phosphorus (05/05/2019 11:02 AM EST) PHOSPHORUS 3.1 2.7 - 4.5 mg/dL [facility] Blood 05/05/2019 11:0 2 AM EST 05/05/2019 12:14 PM EST Justin Barnhart MD LAB BLOOD ORDERABLES Final Re sult Performing Organization Address [facility] Co de Phone Number [address] [address] * (ABNORMAL) Basic metabolic panel (05/05/2019 11:02 AM EST) SODIUM 141 133 - 146 mmol/L [facility] CHLORIDE 101 96 - 108 mmol/L [facility] POTASSIUM 3.9 3.3 - 5.1 mmol/L [facility] CO2 26 21 - 35 mmol/L [facility] BUN 16 6 - 19 mg/dL [facility] CREATININE 0.70 0.5 - 1.5 mg/dL [facility] GLUCOSE 169(H) 70 - 99 mg/dL [facility] CALCIUM 9.5 8.4 - 10.3 mg/dL [facility] EGFR 87 >59 mL/min/1.7 3m2 [facility] Comment:If patient is black, multiply result by 1.159. Estimated glomerular filtration rate calculated using the CKD-EPI equation. ANION GAP 18 10 - 20 mmol/L [facility] Blood 05/05/2019 11:0 2 AM EST 05/05/2019 12:14 PM EST us Justin Barnhart MD LAB BLOOD ORDERABLES Final Re sult [facility] Organization Address City/State/ZIP Co de Phone Number [facility] [address] [place] [address] documented in this encounter Visit Diagnoses Diagnosis Essential hypertension, malignant- Primary Myxedema heart disease Unspecified hypothyroidism Personal history of urinary calculi documented in this encounter Care Teams Ruby Rails Developer Relationship Specialty Start Date End Date Justin Barnhart MD [address] [facility], [address] [place] [address] [email or web address] PCP - General Nephrology 02/06/18 02/19/24 Nii Menchaca MD [address] [facility], [address] [place] [address] PCP - General Family Medicine 02/20/24 Nii Menchaca MD [address] [facility], [address] [place] [address] [email or web address] Insurance Assigned Provider 09/13/24 documented as of this encounter Additional Source Comments The information contained in this document represents components of the legal health record. It is not the complete legal health record.[facility]
--- OUTSIDE RECORDS SUMMARY | 2025-03-24 10:20 | XMS_ITS | Clinical Summary ---
Author Organization [facility] Address [address] [place] [phone] Phone Care Team Providers Care Culinary Assistant Name Role Phone Nii Menchaca Primary Care Provider [phone] Allergies Active Allergy Reactions Criticality Noted Date [...] age to complete this topic Insurance Medicare [facility] Care Teams Culinary Assistant Relationship Specialty Start Date End Date Nii Menchaca [address] [place] [address] PCP - General Family Medicine 06/04/24
--- OUTSIDE RECORDS SUMMARY | 2025-03-24 10:20 | XMS_ITS | Encounter Summary ---
Author Organization [facility] Address [address] [place] [address] Phone Care Team Providers Care Bander And Cellophaner Machine Helper Name Role Phone Justin Barnhart MD Primary Care Provider [phone] Nii Menchaca MD Primary Care Provider [phone] Nii Menchaca MD Unavailable Encounter Details Date Type Department Care Team (Latest Contact Info) Description 08/29/2021 Transcribe Orders Virtual Department [address] [place] [address] Javan Reich MD [address] [place] [address], [address] [place] [address] [email or web address] Calculus of kidney (Primary Dx); Cyst of [...] 10:45 AM EST Office Visit [facility] [address] [address] Evy Hernandez MD, PhD [address] [place] [address] [email or web address] 08/24/2025 10:30 AM EDT Office Visit [facility] [address] [place] [address] Nii Menchaca MD 234 [facility], [address] [place] [address] [email or web address] documented as of this encounter Results * [...] pathology apparent. Chronic bladder diverticulum. POS - [id number] Narrative 09/08/2021 12:25 PM EDT COMPARISON: 01/13/2021 [...] pathology apparent. Chronic bladder diverticulum. POS - [id number] us Javan Reich MD [facility] RENAL Final Result documented in this encounter Visit Diagnoses Diagnosis Calculus of kidney- Primary Cyst of kidney, acquired Acquired cyst of kidney Calculus of kidney Cyst of kidney, acquired Acquired cyst of kidney Calculus of kidney Cyst of kidney, acquired Acquired cyst of kidney documented in this encounter Care Teams Bander And Cellophaner Machine Helper Relationship Specialty Start Date End Date Justin Barnhart MD [address] [place] [address], [address] [place] [address] [email or web address] PCP - General Nephrology 02/06/18 02/19/24 Nii Menchaca MD [address] [place] [address], [facility] [address] [place] [address] PCP - General Family Medicine 02/20/24 Nii Menchaca MD [address] [place] [address], [facility] [address] [place] [address] [email or web address] Insurance Assigned Provider 09/13/24 documented as of this encounter Additional Source Comments The information contained in this document represents components of the legal health record. It is not the complete legal health record.[facility]
--- OUTSIDE RECORDS SUMMARY | 2025-03-24 10:20 | XMS_ITS | Encounter Summary ---
Author Organization [facility] Address [address] [place] [address] Phone Care Team Providers Care Computer Help Desk Specialist Name Role Phone Justin Barnhart MD Primary Care Provider [phone] Nii Menchaca MD Primary Care Provider [phone] Nii Menchaca MD Unavailable Encounter Details Date Type Department Care Team (Late st Contact Info) Description 02/28/2021 Ancillary Orders [facility], X-Ray - [address] [address] Javan Reich MD [address] [place] [address], [address] [place] [address] [email or web address] Calculus of ureter Social History Tobacco Use [...] 10:45 AM EST Office Visit [facility] [address] [address] Evy Hernandez MD, PhD 800 [place] [address] [email or web address] 08/24/2025 10:30 AM EDT Office Visit [facility] 234 [place] [address] Nii Menchaca MD 234 [facility], [address] [place] [address] [email or web address] documented as of this encounter Results * [...] ureter documented in this encounter Care Teams Computer Help Desk Specialist Relationship Specialty Start Date End Date Justin Barnhart MD [address] [place] [address], [address] [place] [address] [email or web address] PCP - General Nephrology 02/06/18 02/19/24 Nii Menchaca MD [address] [place] [address] 7 [place] [address] [email or web address] PCP - General Family Medicine 02/20/24 Nii Menchaca MD [address] [place] [address] 7 [place] [address] [email or web address] Insurance Assigned Provider 09/13/24 documented as of this encounter Additional Source Comments The information contained in this document represents components of the legal health record. It is not the complete legal health record.[facility]
--- OUTSIDE RECORDS SUMMARY | 2025-03-24 10:20 | XMS_ITS | Encounter Summary ---
Author Organization [facility] [place] [facility] Address [address] [place] [address] Phone Care Team Providers Care Worship Director Name Role Phone Justin Barnhart MD Primary Care Provider [phone] Nii Menchaca MD Primary Care Provider [phone] Nii Menchaca MD Unavailable Encounter Details Date Type Department Care Team (Late st Contact Info) Description 05/29/2018 Procedure Pass [facility] Admitting Dept Virtual Department 30 [place] [address] Social History Tobacco Use Types Packs/Day Years [...] 10:45 AM EST Office Visit [facility] [place] 800 [place] [address] Evy Hernandez MD, PhD 800 [place] [address] [email or web address] 08/24/2025 10:30 AM EDT Office Visit [facility] 234 [place] [address] Nii Menchaca MD [address] [address] [email or web address] documented as of this encounter Visit Diagnoses Not on filedocumented in this encounter Care Teams Worship Director Relationship Specialty Start Date End Date Justin Barnhart MD [address] [place] [address], [address] [place] [address] [email or web address] PCP - General Nephrology 02/06/18 02/19/24 Nii Menchaca MD [address] [place] [address] 7 [place] [address] PCP - General Family Medicine 02/20/24 Nii Menchaca MD [address] [place] [address] 7 [place] [address] [email or web address] Insurance Assigned Provider 09/13/24 documented as of this encounter Additional Source Comments The information contained in this document represents components of the legal health record. It is not the complete legal health record.[facility]
--- OUTSIDE RECORDS SUMMARY | 2025-03-24 10:20 | XMS_ITS | Encounter Summary ---
Author Organization [facility] Address [address] [place] [address] Phone Care Team Providers Care Economic Development Coordinator Name Role Phone Justin Barnhart MD Primary Care Provider [phone] Nii Menchaca MD Primary Care Provider [phone] Nii Menchaca MD Unavailable Encounter Details Date Type Department Care Team (Late st Contact Info) Description 01/14/2021 Procedure Pass [place] Admitting Dept - Virtual Department 30 [place] [address] Social History Tobacco Use Types Packs/Day Years [...] 10:45 AM EST Office Visit [facility] [place] 800 [place] [address] Evy Hernandez MD, PhD 800 [place] [address] [email or web address] 08/24/2025 10:30 AM EDT Office Visit [facility] [address] [address] Nii Menchaca MD [address] [place] [address] 7 [place] [address] [email or web address] documented as of this encounter Visit Diagnoses Not on filedocumented in this encounter Care Teams Economic Development Coordinator Relationship Specialty Start Date End Date Justin Barnhart MD [address] [place] [address], [address] [place] [address] [email or web address] PCP - General Nephrology 02/06/18 02/19/24 Nii Menchaca MD [address] [place] [address] 7 [place] [address] PCP - General Family Medicine 02/20/24 Nii Menchaca MD [address] [place] [address] 7 [place] [address] Insurance Assigned Provider 09/13/24 documented as of this encounter Additional Source Comments The information contained in this document represents components of the legal health record. It is not the complete legal health record.[facility]
--- OUTSIDE RECORDS SUMMARY | 2025-03-24 10:21 | XMS_ITS | Encounter Summary ---
Author Organization [facility] Address [address] [place] [address] Phone Care Team Providers Care Wringer Operator Name Role Phone Justin Barnhart MD Primary Care Provider [phone] Nii Menchaca MD Primary Care Provider [phone] Nii Menchaca MD Unavailable Encounter Details Date Type Department Care Team (Latest Contact Info) Description 05/08/[address] [facility] 12 [place] [address] Justin Barnhart MD 51 [facility], [address] [place] [address] [email or web address] Essential hypertension, malignant (Primary Dx); Myxedema heart [...] AM EST Office Visit [facility] [place] 800 [place] [address] Evy Hernandez MD, PhD 800 [place] [address] [email or web address] 08/24/2025 10:30 AM EDT Office Visit [facility] 234 [place] [address] Nii Menchaca MD 234 [facility], [address] [place] [address] [email or web address] documented as of this encounter Results * Urine protein/creatinine with ratio (11/06/2018 9:30 AM EDT) URINE TOTAL PROTEIN 12.9 mg/dL [facility] URINE CREATININE 115 mg/dL [facility] URINE TP CRE RATIO 0.11 0 - 0.19 [facility] Urine (Urine) 11/06/2018 9:3 0 AM EDT 11/06/2018 9:36 AM EDT us Justin Barnhart MD URINE ORDERABLES Final Result [address] [address] * Free T4 (11/06/2018 9:30 AM EDT) FREE T4 1.4 0.9 - 1.7 ng/dL [facility] Blood 11/06/2018 9:30 AM EDT 11/06/2018 9:36 AM EDT Justin Barnhart MD LAB BLOOD ORDERABLES Final Re sult [address] [address] * TSH (11/06/2018 9:30 AM EDT) TSH 2.72 0.27 - 4.20 uIU/mL [facility] Blood 11/06/2018 9:30 AM EDT 11/06/2018 9:36 AM EDT us Justin Barnhart MD LAB BLOOD ORDERABLES Final Re sult Performing Organization Address [facility]/ZIP Co de Phone Number [address] [address] * Albumin (11/06/2018 9:30 AM EDT) ALBUMIN 4.3 3.9 - 4.8 g/dL [facility] Blood 11/06/2018 9:30 AM EDT 11/06/2018 9:36 AM EDT us Justin Barnhart MD LAB BLOOD ORDERABLES Final Re sult Performing Organization Address [facility] Co de Phone Number [address] [address] * Magnesium (11/06/2018 9:30 AM EDT) MAGNESIUM 2.2 1.6 - 2.6 mg/dL [facility] Blood 11/06/2018 9:30 AM EDT 11/06/2018 9:36 AM EDT us Justin Barnhart MD LAB BLOOD ORDERABLES Final Re sult Performing Organization Address [facility] Co de Phone Number [address] [address] * Phosphorus (11/06/2018 9:30 AM EDT) PHOSPHORUS 3.5 2.7 - 4.5 mg/dL [facility] Blood 11/06/2018 9:30 AM EDT 11/06/2018 9:36 AM EDT us Justin Barnhart MD LAB BLOOD ORDERABLES Final Re sult Performing Organization Address [facility]/ZIP Co de Phone Number [address] [address] * Basic metabolic panel (11/06/2018 9:30 AM EDT) SODIUM 141 133 - 146 mmol/L [facility] CHLORIDE 102 96 - 108 mmol/L [facility] POTASSIUM 4.1 3.3 - 5.1 mmol/L [facility] CO2 28 21 - 35 mmol/L [facility] BUN 17 6 - 19 mg/dL [facility] CREATININE 0.80 0.5 - 1.5 mg/dL [facility] GLUCOSE 96 70 - 99 mg/dL [facility] CALCIUM 9.6 8.4 - 10.3 mg/dL [facility] EGFR 83 >59 mL/min/1.7 3m2 [facility] Comment:If patient is black, multiply result by 1.159. Estimated glomerular filtration rate calculated using the CKD-EPI equation. ANION GAP 15 10 - 20 mmol/L [facility] Blood 11/06/2018 9:30 AM EDT 11/06/2018 9:36 AM EDT us Justin Barnhart MD LAB BLOOD ORDERABLES Final Re sult [address] [address] * Urine protein/creatinine with ratio (05/08/2018 9:53 AM EST) URINE TOTAL PROTEIN 18.7 mg/dL [facility] URINE CREATININE 171 mg/dL [facility] URINE TP CRE RATIO 0.11 0 - 0.19 [facility] Urine (Urine) 05/08/2018 9:5 3 AM EST 05/08/2018 9:58 AM EST us Justin Barnhart MD URINE ORDERABLES Final Result [address] [address] * Free T4 (05/08/2018 9:53 AM EST) FREE T4 1.3 0.9 - 1.7 ng/dL [facility] Blood 05/08/2018 9:53 AM EST 05/08/2018 9:59 AM EST us Justin Barnhart MD LAB BLOOD ORDERABLES Final Re sult Performing Organization Address [facility]/ZIP Co de Phone Number [address] [address] * (ABNORMAL) TSH (05/08/2018 9:53 AM EST) TSH 4.21(H) 0.27 - 4.20 uIU/mL [facility] Blood 05/08/2018 9:53 AM EST 05/08/2018 9:59 AM EST us Justin Barnhart MD LAB BLOOD ORDERABLES Final Re sult Performing Organization Address [facility] Co de Phone Number [address] [address] * Albumin (05/08/2018 9:53 AM EST) ALBUMIN 4.1 3.9 - 4.8 g/dL [facility] Blood 05/08/2018 9:53 AM EST 05/08/2018 9:59 AM EST us Justin Barnhart MD LAB BLOOD ORDERABLES Final Re sult Performing Organization Address [facility] Co de Phone Number [address] [address] * Magnesium (05/08/2018 9:53 AM EST) MAGNESIUM 1.9 1.6 - 2.6 mg/dL [facility] Blood 05/08/2018 9:53 AM EST 05/08/2018 9:59 AM EST us Justin Barnhart MD LAB BLOOD ORDERABLES Final Re sult Performing Organization Address [facility]/ZIP Co de Phone Number [address] [address] * Phosphorus (05/08/2018 9:53 AM EST) PHOSPHORUS 2.9 2.7 - 4.5 mg/dL [facility] Blood 05/08/2018 9:53 AM EST 05/08/2018 9:59 AM EST us Justin Barnhart MD LAB BLOOD ORDERABLES Final Re sult Performing Organization Address City/[facility]/ZIP Co de Phone Number [address] [address] * (ABNORMAL) Basic metabolic panel (05/08/2018 9:53 AM EST) SODIUM 142 133 - 146 mmol/L [facility] CHLORIDE 102 96 - 108 mmol/L [facility] POTASSIUM 4.0 3.3 - 5.1 mmol/L [facility] CO2 25 21 - 35 mmol/L [facility] BUN 16 6 - 19 mg/dL [facility] CREATININE 0.70 0.5 - 1.5 mg/dL [facility] GLUCOSE 122(H) 70 - 99 mg/dL [facility] CALCIUM 9.2 8.4 - 10.3 mg/dL [facility] EGFR 88 >59 mL/min/1.7 3m2 [facility] Comment:If patient is black, multiply result by 1.159. Estimated glomerular filtration rate calculated using the CKD-EPI equation. 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 Personal history of urinary calculi documented in this encounter Care Teams Wringer Operator Relationship Specialty Start Date End Date Justin Barnhart MD [address] [place] [address], [address] [place] [address] [email or web address] PCP - General Nephrology 02/06/18 02/19/24 Nii Menchaca MD [address] [place] [address] 7 [place] [address] [email or web address] PCP - General Family Medicine 02/20/24 Nii Menchaca MD 234 [facility], [address] [place] [address] [email or web address] Insurance Assigned Provider 09/13/24 documented as of this encounter Additional Source Comments The information contained in this document represents components of the legal health record. It is not the complete legal health record.[facility]
--- OUTSIDE RECORDS SUMMARY | 2025-03-24 10:21 | XMS_ITS | Encounter Summary ---
Author Organization [facility] Address [address] [place] [address] Phone Care Team Providers Care Neurology Professor Name Role Phone Justin Barnhart MD Primary Care Provider [phone] Nii Menchaca MD Primary Care Provider [phone] Nii Menchaca MD Unavailable Encounter Details Date Type Department Care Team (Latest Contact Info) Description 05/13/2018 Transcribe Orders [facility] [address] 2nd [place] [address] Dieter Nagy MD 10 [facility] 2 [place] [address] Dysphagia, unspecified type (Primary Dx); Abnormal barium [...] 10:45 AM EST Office Visit [facility] [place] 800 [place] [address] Evy Hernandez MD, PhD 800 [place] [address] [email or web address] 08/24/2025 10:30 AM EDT Office Visit [facility] 234 [place] [address] Nii Menchaca MD 234 [facility], [address] [place] [address] [email or web address] documented as of this encounter Results * Comprehensive metabolic panel (05/13/2018 11:35 AM EST) SODIUM 144 133 - 146 mmol/L [facility] POTASSIUM 4.1 3.3 - 5.1 mmol/L [facility] CHLORIDE 106 96 - 108 mmol/L [facility] CO2 23 21 - 35 mmol/L [facility] BUN 15 6 - 19 mg/dL [facility] CREATININE 0.70 0.5 - 1.5 mg/dL [facility] GLUCOSE 99 70 - 99 mg/dL [facility] ALBUMIN 4.6 3.9 - 4.8 g/dL [facility] TOTAL PROTEIN 7.6 6.5 - 8.0 g/dL [facility] CALCIUM 9.2 8.4 - 10.3 mg/dL [facility] ALKALINE PHOSPHATASE 76 39 - 117 U/L [facility] TOTAL BILIRUBIN 0.4 0.0 - 1.2 mg/dL [facility] AST 30 0 - 37 U/L [facility] ALT 37 0 - 40 U/L [facility] GLOBULIN 3.0 1 - 4.8 g/dL [facility] EGFR 88 >59 mL/min/1.7 3m2 [facility] Comment:If patient is black, multiply result by 1.159. Estimated glomerular filtration rate calculated using the CKD-EPI equation. ANION GAP 19 10 - 20 mmol/L [facility] Blood 05/13/2018 11:3 5 AM EST 05/13/2018 11:39 AM EST us Dieter Nagy MD LAB BLOOD ORDERABLES Final Result [facility] [address] [place] [address] * (ABNORMAL) CBC (05/13/2018 11:35 AM EST) WBC 7.29 3.40 - 11.20 K/uL [facility] RBC 4.70 4.50 - 5.50 M/uL [facility] HGB 15.1 13.0 - 17.0 g/dL [facility] HCT 45.2 40.0 - 51.0 % [facility] PLT 345 130 - 400 K/uL [facility] MCV 96.2 79.0 - 98.0 fL [facility] MCH 32.1 27.0 - 34.8 pg [facility] MCHC 33.4 31.5 - 36.0 g/dL [facility] RDW 14.0 10.8 - 14.6 % [facility] MPV 9.3(L) 9.4 - 12.4 fl [facility] NRBC 0.00 0.00 /100 WBCs [facility] ABSOLUTE NRBC 0.00 0.00 K/uL [facility] Blood 05/13/2018 11:3 5 AM EST 05/13/2018 11:39 AM EST us Dieter Nagy MD LAB BLOOD ORDERABLES Final Result Performing Organization Address City/State/[facility] Co de Phone Number [facility] [address] [place] [address] documented in this encounter Visit Diagnoses Diagnosis Dysphagia, unspecified type- Primary Abnormal barium swallow documented in this encounter Care Teams Neurology Professor Relationship Specialty Start Date End Date Justin Barnhart MD [address] [place] [address], [address] [place] [address] PCP - General Nephrology 02/06/18 02/19/24 Nii Menchaca MD [address] [place] [address], [address] [place] [address] PCP - General Family Medicine 02/20/24 Nii Menchaca MD [address] [place] [address], [address] [place] [address] [email or web address] Insurance Assigned Provider 09/13/24 documented as of this encounter Additional Source Comments The information contained in this document represents components of the legal health record. It is not the complete legal health record.[facility]
--- OUTSIDE RECORDS SUMMARY | 2025-03-24 10:22 | XMS_ITS | Encounter Summary ---
Author Organization [facility] Address [address] [place] [address] Phone Care Team Providers Care Prepress Manager Name Role Phone Nii Menchaca MD Primary Care Provider [phone] Nii Menchaca MD Unavailable Reason for Visit * Reason Onset Date Comments Care Coordination 03/23/2025 [facility] Virtual A [place] Outreach Encounter Details Date Type Department Care Team (Late st Contact Info) Description 03/23/2025 Telephone [facility] -[facility] TEAM [address] [place] [address] Nii Menchaca MD [address] [place] [address], [facility] 7 [place], [place] [address] [email or web address] Care Coordination ([facility] Virtual AWV Outreach ) Social History Tobacco Use Types Packs/Day Years Used Date Smoking Tobacco: Never Smokeless Tobacco: Never Alcohol Use Standard Drinks/Week Comments Yes 0 (1 standard drink = 0.6 oz pur e alcohol) One or two at a [facility] Child or Family Care Answer Date Record [...] on file documented as of this encounter Progress Notes * Laurie Hernandez - 03/23/2025 4:[address] [facility] Population Health Service Organization ([facility]) Annual Wellness Project: Patient has been identified as an individual who would benefit from a virtual Annual Wellness Visitthrough the [facility] AWV Project. Patient did not answer, left voicemail requesting patient calls [facility] virtual AWV scheduling if interested. Laurie Hernandez [facility] Prepress Manager documented in this encounter Plan of Treatment Upcoming Encounters Date Type Department Care Team (Late st Contact Info) Description 05/27/2025 10:45 AM EST Office Visit [facility] [employer] [address] [place] [address] Evy Hernandez MD, PhD 800 [place] [address] [email or web address] 08/24/2025 10:30 AM EDT Office Visit [facility] [address] [address] Nii Menchaca MD [address] [place] [address] documented as of this encounter Visit Diagnoses Not on filedocumented in this encounter Additional Health Concerns Assessment Noted Time PHQ-2 Depression Total Score: 0 02/24/20 10:20 AM EDT documented as of this encounter Care Teams Prepress Manager Relationship Specialty Start Date End Date Nii Menchaca MD [address] [place] [address] PCP - General Family Medicine 02/20/24 Nii Menchaca MD [address] [place] [address] [email or web address] Insurance Assigned Provider 09/13/24 documented as of this encounter Additional Source Comments The information contained in this document represents components of the legal health record. It is not the complete legal health record.[facility]
--- OUTSIDE RECORDS SUMMARY | 2025-03-24 10:22 | XMS_ITS | Encounter Summary ---
Author Organization [facility], Address [address] [place] [address] Phone Care Team Providers Care Resident Advisor Name Role Phone Nii Menchaca Primary Care Provider [phone] Encounter Details Date Type Department Care Team (Late st Contact Info) Description 11/06/2022 Documentation Only [facility], - [address] [address] Justin Barnhart MD Social History [...] on filedocumented in this encounter Care Teams Resident Advisor Relationship Specialty Start Date End Date Nii Menchaca [address] [place] [address] PCP - General Family Medicine 06/04/24 documented as of this encounter
--- OUTSIDE RECORDS SUMMARY | 2025-03-24 10:22 | XMS_ITS | Encounter Summary ---
Author Organization [facility] Address [address] [place] [address] Phone Care Team Providers Care Manager Registration Name Role Phone Nii Menchaca Primary Care Provider [phone] Encounter Details Date Type Department Care Team (Late st Contact Info) Description 06/04/2024 Documentation Only [facility], [address] [place] [address] Brenda Soriano [address] [place] [phone] Social History Tobacco Use Types Packs/Day Years [...] on filedocumented in this encounter Care Teams Manager Registration Relationship Specialty Start Date End Date Nii Menchaca [address] [place] [address] PCP - General Family Medicine 06/04/24 documented as of this encounter
--- OUTSIDE RECORDS SUMMARY | 2025-03-24 10:22 | XMS_ITS | Encounter Summary ---
Author Organization [facility] Address [address] [place] [address] Phone Care Team Providers Care Pcmh Specialist Name Role Phone Nii Menhcaca MD Primary Care Provider [phone] Nii Menchaca MD Unavailable Encounter Details Date Type Department Care Team (Late st Contact Info) Description 06/09/2024 Procedure Pass [facility] LW PERIOP DEPT [address] [place] [address] Social History Tobacco Use Types Packs/Day Years Used Date Smoking Tobacco: Never Smokeless Tobacco: Never Alcohol Use Standard Drinks/Week Comments Yes 0 (1 standard drink = 0.6 oz pur e alcohol) One or two at a [facility] Child or Family Care Answer Date [...] 10:45 AM EST Office Visit [facility] [place] [address] [place] [address] Evy Hernandez MD, PhD [address] [place] [address] [email or web address] 08/24/2025 10:30 AM EDT Office Visit [facility] [address] [place] [address] Nii Menchaca MD [address] [place] [address], [address] [place] [address] [email or web address] documented as of this encounter Visit Diagnoses Not on filedocumented in this encounter Additional Health Concerns Assessment Noted Time PHQ-2 Depression Total Score: 0 02/20/20 24 8:12 AM EDT documented as of this encounter Care Teams Pcmh Specialist Relationship Specialty Start Date End Date Nii Menchaca MD 234 [facility] [address] [place] [address] [email or web address] PCP - General Family Medicine 02/20/24 Nii Menchaca MD 234 [facility] [address] [place] [address] [email or web address] Insurance Assigned Provider 09/13/24 documented as of this encounter Additional Source Comments The information contained in this document represents components of the legal health record. It is not the complete legal health record.[facility]
--- OUTSIDE RECORDS SUMMARY | 2025-03-24 10:22 | XMS_ITS | Encounter Summary ---
Author Organization [facility] Address [address] [place] [address] Phone Care Team Providers Care Telegraphic Instrument Supervisor Name Role Phone Unknown, Unknown Primary Care Provider Justin Reed MD Primary Care Provider [phone] Nii Menchaca MD Primary Care Provider [phone] Nii Menchaca MD Unavailable Encounter Details Date Type Department Care Team (Latest Contact Info) Description 05/16/2017 Transcribe Orders [facility] [address] [place] [address] Justin Barnhart MD [address] [place] [address], [address] [place], [place] [id number] [email or web address] Essential hypertension, benign (Primary Dx); Myxedema heart [...] 10:45 AM EST Office Visit [facility] [address] [address] Evy Hernandez MD, PhD [address] [place] [address] [email or web address] 08/24/2025 10:30 AM EDT Office Visit [facility] [address] [place] [address] Nii Menchaca MD 234 [facility], [address] [place] [address] [email or web address] documented as of this encounter Results * Free T4 (11/14/2017 9:57 AM EDT) FREE T4 1.3 0.9 - 1.7 ng/dL [facility] Blood 11/14/2017 9:57 AM EDT 11/14/2017 10:11 AM EDT us Justin Barnhart MD LAB BLOOD ORDERABLES Final Re sult [address] [address] * TSH (11/14/2017 9:57 AM EDT) TSH 1.38 0.27 - 4.20 uIU/mL [facility] Blood 11/14/2017 9:57 AM EDT 11/14/2017 10:11 AM EDT us Justin Barnhart MD LAB BLOOD ORDERABLES Final Re sult [address] [address] * Magnesium (11/14/2017 9:57 AM EDT) MAGNESIUM 2.1 1.6 - 2.6 mg/dL [facility] Blood 11/14/2017 9:57 AM EDT 11/14/2017 10:11 AM EDT us Justin Barnhart MD LAB BLOOD ORDERABLES Final Re sult Performing Organization Address City/[facility]/ZIP Co de Phone Number [address] [address] * (ABNORMAL) Basic metabolic panel (11/14/2017 9:57 AM EDT) SODIUM 145 133 - 146 mmol/L [facility] CHLORIDE 105 96 - 108 mmol/L [facility] POTASSIUM 4.1 3.3 - 5.1 mmol/L [facility] CO2 30 21 - 35 mmol/L [facility] BUN 18 6 - 19 mg/dL [facility] CREATININE 0.80 0.5 - 1.5 mg/dL [facility] GLUCOSE 174(H) 70 - 99 mg/dL [facility] CALCIUM 8.8 8.4 - 10.3 mg/dL [facility] EGFR 84 >59 mL/min/1.7 3m2 [facility] Comment:If patient is black, multiply result by 1.159. The eGFR calculation has changed from the MDRD equation to the CKD-EPI equation as of August 13, 2017. ANION GAP 14 10 - 20 mmol/L [facility] Blood 11/14/2017 9:57 AM EDT 11/14/2017 10:11 AM EDT Justin Barnhart MD LAB BLOOD ORDERABLES Final Re sult Performing Organization Address [facility] Co de Phone Number [address] [address] * Free T4 (05/16/2017 10:09 AM EST) FREE T4 1.3 0.9 - 1.7 ng/dL [facility] Blood 05/16/2017 10:0 9 AM EST 05/16/2017 10:16 AM EST Justin Barnhart MD LAB BLOOD ORDERABLES Final Re sult Performing Organization Address City/[facility]/ZIP Co de Phone Number [address] [address] * TSH (05/16/2017 10:09 AM EST) TSH 2.79 0.27 - 4.20 uIU/mL [facility] Blood 05/16/2017 10:0 9 AM EST 05/16/2017 10:16 AM EST Justin Barnhart MD LAB BLOOD ORDERABLES Final Re sult Performing Organization Address [facility]/ZIP Co de Phone Number [address] [address] * Magnesium (05/16/2017 10:09 AM EST) Pathologist [facility] MAGNESIUM 2.2 1.6 - 2.6 mg/dL [facility] Blood 05/16/2017 10:0 9 AM EST 05/16/2017 10:16 AM EST Justin Barnhart MD LAB BLOOD ORDERABLES Final Re sult Performing Organization Address City/[facility] Co de Phone Number [address] [address] * (ABNORMAL) Basic metabolic panel (05/16/2017 10:09 AM EST) Pathologist [facility] SODIUM 142 133 - 146 mmol/L [facility] CHLORIDE 102 96 - 108 mmol/L [facility] POTASSIUM 4.3 3.3 - 5.1 mmol/L [facility] CO2 28 21 - 35 mmol/L [facility] BUN 16 6 - 19 mg/dL [facility] CREATININE 0.70 0.5 - 1.5 mg/dL [facility] GLUCOSE 100(H) 70 - 99 mg/dL [facility] CALCIUM 9.3 8.4 - 10.3 mg/dL [facility] EGFR >60 mL/min/1.7 3m2 [facility] Comment:Abnormal if <60. If patient is -Andorran, multiply the result by 1.21. ANION GAP 16 10 - 20 mmol/L [facility] Blood 05/16/2017 10:0 9 AM EST 05/16/2017 10:16 AM EST us Justin Barnhart MD LAB BLOOD ORDERABLES Final Re sult Performing Organization Address City/[facility]/ZIP Co de Phone Number [address] [address] * (ABNORMAL) Lipid panel (05/16/2017 10:09 AM EST) HDL 48 mg/dL [facility] Comment: Interpretation: Risk Level Males Decreased >45 mg/dL Average 40-45 mg/dL Increased <40 mg/dL CHOLESTEROL 139 0 - 240 mg/dL [facility] TRIGLYCERIDES 109 30 - 160 mg/dL [facility] LDL 69 50 - 129 mg/dL [facility] Comment: LDL levels in terms of risk for coronary heart disease: <100 mg/dL: Optimal 100-129 mg/dL: Near or above optimal 130-159 mg/dL: Borderline high 160-189 mg/dL: High >190 mg/dL: Very High CARDIAC RISK RATIO 2.9(L) 3.4 - 5.0 [facility] Blood 05/16/2017 10:0 9 AM EST 05/16/2017 10:16 AM EST us Justin Barnhart MD LAB BLOOD ORDERABLES Final Re sult Performing Organization Address [facility] Co de Phone Number [address] [address] documented in this encounter Visit Diagnoses Diagnosis Essential hypertension, 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 Personal history of urinary calculi documented in this encounter Care Teams Telegraphic Instrument Supervisor Relationship Specialty Start Date End Date Unknown, Unknown, MD PCP - General 05/16/17 02/05/18 uJstin Barnhart MD [address] [place] [address], [address] [place] [address] [email or web address] PCP - General Nephrology 02/06/18 02/19/24 Nii Menchaca MD [address] [place] [address], [address] [place] [address] [email or web address] PCP - General Family Medicine 02/20/24 Nii Menchaca MD [address] [place] [address], [address] [place] [address] [email or web address] Insurance Assigned Provider 09/13/24 documented as of this encounter Additional Source Comments The information contained in this document represents components of the legal health record. It is not the complete legal health record.[facility]
--- OUTSIDE RECORDS SUMMARY | 2025-03-24 10:22 | XMS_ITS | Encounter Summary ---
Author Organization [facility], Address [address] [place] [address] Phone Care Team Providers Care Instrumentation Engineering Technician Name Role Phone Nii Menchaca Primary Care Provider [phone] Encounter Details Date Type Department Care Team (Late st Contact Info) Description 11/21/2023 Documentation Only [facility], - [address] [phone] Brenda Soriano [address] [place] [phone] Social History Tobacco Use Types Packs/Day [...] on filedocumented in this encounter Care Teams Instrumentation Engineering Technician Relationship Specialty Start Date End Date Nii Menchaca [address] [place] [address] PCP - General Family Medicine 06/04/24 documented as of this encounter
--- OUTSIDE RECORDS SUMMARY | 2025-03-24 10:22 | XMS_ITS | Encounter Summary ---
Author Organization [facility] Address [address] [facility] [address] [place] [address] Phone Care Team Providers Care Drum Straightener Name Role Phone Justin Barnhart MD Primary Care Provider [phone] Nii Menchaca MD Primary Care Provider [phone] Nii Menchaca MD Unavailable Encounter Details Date Type Department Care Team (Late st Contact Info) Description 02/06/2018 Transcribe Orders [facility] [address] [place] [address] Abner Sandoval MD [address] [place] [address] [address] [place] [address] Malignant neoplasm of prostate (Primary Dx) Social [...] AM EST Office Visit [facility] [address] [address] Evy Hernandez MD, PhD [address] [place] [address] [email or web address] 08/24/2025 10:30 AM EDT Office Visit [facility] [address] [place] [address] Nii Menchaca MD 234 [facility] [address] [place] [address] [email or web address] documented as of this encounter Results * PSA (screening) (02/06/2018 9:09 AM EDT) PSA 0.20 0 - 4.00 ng/mL [facility] Blood 02/06/2018 9:09 AM EDT 02/06/2018 9:15 AM EDT us Abner Sandoval MD LAB BLOOD ORDERABLES Final Result [facility] [address] [place] [address] documented in this encounter Visit Diagnoses Diagnosis Malignant neoplasm of prostate- Primary documented in this encounter Care Teams Drum Straightener Relationship Specialty Start Date End Date Justin Barnhart MD 51 [facility], [address] [place] [address] [email or web address] PCP - General Nephrology 02/06/18 02/19/24 Nii Menchaca MD [address] [place] [address], [address] [place] [address] [email or web address] PCP - General Family Medicine 02/20/24 Nii Menchaca MD [address] [place] [address], [address] [place] [address] [email or web address] Insurance Assigned Provider 09/13/24 documented as of this encounter Additional Source Comments The information contained in this document represents components of the legal health record. It is not the complete legal health record.[facility]
--- OUTSIDE RECORDS SUMMARY | 2025-03-24 10:22 | XMS_ITS | Encounter Summary ---
Author Organization [facility] Address [address] [place] [address] Phone Care Team Providers Care Senior Java Ui Developer Name Role Phone Nii Menchaca MD Primary Care Provider [phone] Nii Menchaca MD Unavailable Encounter Details Date Type Department Care Team ([facility] st Contact Info) Description 05/01/2024 Ophth Exam [facility] [address] [place] [address] Mena Lezama MD [address] [place] [address] [email or web address] Social History Tobacco Use Types Packs/Day [...] 05/01/2024 9:14 AM Hemal Melton RN * Converse Suicide Severity Rating Scale (Screener/Recent Self-Report) Question [...] 10:45 AM EST Office Visit [facility] [place] [address] [place] [address] Evy Hernandez MD, PhD [address] [place] [address] [email or web address] 08/24/2025 10:30 AM EDT Office Visit [facility] [address] [place] [address] Nii Menchaca MD [address] [place] [address] [email or web address] documented as of this encounter Visit Diagnoses Not on filedocumented in this encounter Additional Health Concerns Assessment Noted Time PHQ-2 Depression Total Score: 0 02/20/20 8:12 AM EDT documented as of this encounter Care Teams Senior Java Ui Developer Relationship Specialty Start Date End Date Nii Menchaca MD [address] [place] [address] [email or web address] PCP - General Family Medicine 02/20/24 Nii Menchaca MD [address] [place] [address] [email or web address] Insurance Assigned Provider 09/13/24 documented as of this encounter Additional Source Comments The information contained in this document represents components of the legal health record. It is not the complete legal health record.[facility]
--- OUTSIDE RECORDS SUMMARY | 2025-03-24 10:22 | XMS_ITS | Encounter Summary ---
Author Organization [facility] Address [address] [place] [address] Phone Care Team Providers Care Cytogenetics Laboratory Manager Name Role Phone Justin Barnhart MD Primary Care Provider [phone] Nii Menchaca MD Primary Care Provider [phone] Nii Menchaca MD Unavailable Encounter Details Date Type Department Care Team (Late st Contact Info) Description 02/17/2018 Ancillary Orders Virtual Department [address] [place] [address] Justin Barnhart MD [address] [place] [address], 3 [place] [address] [email or web address] Dysphagia, unspecified type; Hiatal hernia Social History [...] AM EST Office Visit [facility] [address] [address] Evy Hernandez MD, PhD [address] [place] [address] [email or web address] 08/24/2025 10:30 AM EDT Office Visit [facility] [address] [place] [address] Nii Menchaca MD 234 [facility], [address] [place] [address] [email or web address] documented as of this encounter Results * [...] POS - [id number] Justin Barnhart MD IMG [place] MISC Final Result documented in this encounter Visit Diagnoses Diagnosis Dysphagia, unspecified type Hiatal hernia 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 Dysphagia, unspecified type Hiatal hernia 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 documented in this encounter Care Teams Cytogenetics Laboratory Manager Relationship Specialty Start Date End Date Justin Barnhart MD [address] [place] [address], [address] [place] [address] [email or web address] PCP - General Nephrology 02/06/18 02/19/24 Nii Menchaca MD [address] [place] [address] 7 [place] [address] PCP - General Family Medicine 02/20/24 Nii Menchaca MD [address] [place] [address] 7 [place] [address] [email or web address] Insurance Assigned Provider 09/13/24 documented as of this encounter Additional Source Comments The information contained in this document represents components of the legal health record. It is not the complete legal health record.[facility]
--- OUTSIDE RECORDS SUMMARY | 2025-03-24 10:22 | XMS_ITS | Encounter Summary ---
Author Organization [facility] Address [address] [place] [address] [place] [address] Phone Care Team Providers Care Lathe Turner Name Role Phone Justin Barnhart MD Primary Care Provider [phone] Nii Menchaca MD Primary Care Provider [phone] Nii Menchaca MD Unavailable Encounter Details Date Type Department Care Team (Late st Contact Info) Description 05/15/2018 Procedure Pass [facility] Admitting Dept Virtual Department [address] [place] [address] Social History Tobacco Use Types Packs/Day Years [...] 10:45 AM EST Office Visit [facility] [place] [address] [place] [address] Evy Hernandez MD, PhD 800 [place] [address] [email or web address] 08/24/2025 10:30 AM EDT Office Visit [facility] [address] [place] [address] Nii Menchaca MD [address] [place] [address], [address] [place] [address] [email or web address] documented as of this encounter Visit Diagnoses Not on filedocumented in this encounter Care Teams Lathe Turner Relationship Specialty Start Date End Date Justin Barnhart MD 51 [facility], [address] [place] [address] [email or web address] PCP - General Nephrology 02/06/18 02/19/24 Nii Menchaca MD 234 [facility] [address] [place] [address] PCP - General Family Medicine 02/20/24 Nii Menchaca MD 234 [facility] [address] [place] [address] [email or web address] Insurance Assigned Provider 09/13/24 documented as of this encounter Additional Source Comments The information contained in this document represents components of the legal health record. It is not the complete legal health record.[facility]
--- OUTSIDE RECORDS SUMMARY | 2025-03-24 10:22 | XMS_ITS | Encounter Summary ---
Author Organization [facility] Address [address] [employer] [address] [facility] [address] [place] [address] Phone Care Team Providers Care Exercise Scientist Name Role Phone Justin Barnhart MD Primary Care Provider [phone] Nii Menchaca MD Primary Care Provider [phone] Nii Menchaca MD Unavailable Encounter Details Date Type Department Care Team (Late st Contact Info) Description 02/06/2018 Ancillary Orders [facility], X-Ray - [address] [address] Abner Sandoval MD 100 [facility] 240 [place] [address] Nephrolithiasis Social History Tobacco Use Types Packs/Day [...] 10:45 AM EST Office Visit [facility] [place] [address] [place] [address] Evy Hernandez MD, PhD [address] [place] [address] [email or web address] 08/24/2025 10:30 AM EDT Office Visit [facility] [address] [place] [address] Nii Menchaca MD 234 [facility], [address] [place] [address] [email or web address] documented as of [...] kidney documented in this encounter Care Teams Exercise Scientist Relationship Specialty Start Date End Date Justin Barnhart MD [address] [place] [address], [address] [place] [address] [email or web address] PCP - General Nephrology 02/06/18 02/19/24 Nii Menchaca MD [address] [place] [address] 7 [place] [address] [email or web address] PCP - General Family Medicine 02/20/24 Nii Menchaca MD [address] [place] [address], [facility] 7 [place] [address] [email or web address] Insurance Assigned Provider 09/13/24 documented as of this encounter Additional Source Comments The information contained in this document represents components of the legal health record. It is not the complete legal health record.[facility]
== END 2025-03-24 09:16 | disposition home or self-care (01) ==
LOC: HO.HMGAL 09:16
PROVIDERS: PCP Family Medicine; Visit Provider Registered Nurse Emergency
DX: J30.89 Other allergic rhinitis (principal)
CPT/HCPCS: 95117; 95165

== ENCOUNTER 2025-04-26 09:48 | Outpatient (AMB) | payer MEDICARE, OTHER, SELFPAY | END 2025-04-26 09:49 | disposition home or self-care (01) | LOC: HO.HMGAL 09:48 | PROVIDERS: PCP Family Medicine; Visit Provider Registered Nurse Emergency | DX: J30.89 Other allergic rhinitis (principal) | CPT/HCPCS: 95117; 95165 ==

== ENCOUNTER 2025-05-24 10:22 | Outpatient (AMB) | payer MEDICARE, OTHER, SELFPAY | END 2025-05-24 10:22 | disposition home or self-care (01) | LOC: HO.HMGAL 10:22 | PROVIDERS: PCP Family Medicine; Visit Provider Registered Nurse Emergency | DX: J30.89 Other allergic rhinitis (principal) | CPT/HCPCS: 95117; 95165 ==